=== PATIENT | female | born 1945 | race Caucasian/White ===

== ENCOUNTER → 2020-01-24 14:34 | Outpatient (BNVA) | payer MEDICARE, SELFPAY | PROVIDERS: Family Provider Family Medicine; Visit Provider Family Medicine | DX: E11.9 Type 2 diabetes mellitus without complications (principal); E78.00 Pure hypercholesterolemia, unspecified; I10 Essential (primary) hypertension; Z87.891 Personal history of nicotine dependence; F41.9 Anxiety disorder, unspecified; Z00.00 Encounter for general adult medical examination without abnormal findings | CPT/HCPCS: 80053; 80061; 85025 ==

== ENCOUNTER → 2020-04-24 15:36 | Outpatient (BNVA) | payer MEDICARE, SELFPAY | PROVIDERS: Family Provider Family Medicine; Visit Provider Family Medicine | DX: R73.9 Hyperglycemia, unspecified (principal) | CPT/HCPCS: 36416; 82962 ==

== ENCOUNTER 2020-07-27 12:58 | Outpatient (CLI) | payer MEDICARE, SELFPAY ==
--- NOTE | 2020-07-27 13:07 | MM_ITS ---
WS: [id number] Bilateral screening digital mammogram, 07/27/2020 Clinical Data: SCREENING Comparison: 03/29/2019, 03/24/2018. Findings: The breast parenchymal pattern shows heterogeneous density No spiculated masses or clustered calcific ations are seen. There are no secondary signs of carcinoma. There are benign calcifications throughou t both breasts. MM/[id number] Impression: 1. Negative bilateral mammogram unchanged. 2. Recommend annual screening mammograms. BIRADS: 1-Negative FOLLOW UP: 1 Year Follow-up The CAD bag checker was used.
== END 2020-07-27 12:59 | disposition home or self-care (01) ==
PROVIDERS: PCP Family Medicine; Visit Provider Family Medicine
DX: Z12.31 Encounter for screening mammogram for malignant neoplasm of breast (principal)
CPT/HCPCS: 77067

== ENCOUNTER → 2020-11-27 15:53 | Outpatient (BNVA) | payer MEDICARE, MEDICAID, SELFPAY | PROVIDERS: PCP Family Medicine; Visit Provider Family Medicine | DX: Z00.00 Encounter for general adult medical examination without abnormal findings (principal); E78.00 Pure hypercholesterolemia, unspecified; I10 Essential (primary) hypertension; Z87.891 Personal history of nicotine dependence; E11.65 Type 2 diabetes mellitus with hyperglycemia; F41.9 Anxiety disorder, unspecified | CPT/HCPCS: 80053; 80061; 83036; 85025 ==

== ENCOUNTER → 2021-02-28 14:37 | Outpatient (BNVA) | payer MEDICARE, MEDICAID, SELFPAY | PROVIDERS: PCP Family Medicine; Visit Provider Specialist | DX: G30.9 Alzheimer's disease, unspecified (principal); F02.80 Dementia in other diseases classified elsewhere, unspecified severity, without behavioral disturbance, psychotic disturbance, mood disturbance, and anxiety; Z87.891 Personal history of nicotine dependence | CPT/HCPCS: 96116; 99205 ==

== ENCOUNTER 2021-04-25 17:33 | Observation (INO) | payer MEDICARE, SELFPAY ==
[2021-04-25] VITALS (17 sets, daily range): BP systolic 160–184; BP diastolic 75–115; PULSE 96–120; RESP 18–31; TEMP 36.3–36.6; O2SAT 88–96; BMI 25.6
--- NOTE | 2021-04-25 17:37 | ECG_ITS ---
[facility] Test Date: 2021-04-25 Pat Name: Maria M Klein Department: Room: Gender: Female [employer]: : 1945 Requested By: Sanju Kennedy Order Number: [id number] Collin MD: Jeff Toro M.D. Measurements Intervals [place] Rate: 118 P: IA: QRS: 29 QRSD: 82 T: 74 QT: 332 QTc: 465 Interpretive Statements ATRIAL FLUTTER/TACHYCARDIA WITH RAPID VENTRICULAR RESPONSE ABNORMAL RHYTHM ECG Compared to ECG 07/05/2014 12:11:42 Sinus rhythm no longer present Sinus arrhythmia no longer present Myocardial infarct finding no longer present Electronically Signed On 04-25-2021 23:02:45 CDT by Jeff Toro M.D. [id number]
--- NOTE | 2021-04-25 17:38 | XRR_ITS ---
PROCEDURE INFORMATION: Exam: XR Chest Exam date and time: 04/25/2021 5:38 PM Age: 75 years old Clinical indication: Cough TECHNIQUE: Imaging protocol: XR of the chest. Views: 1 view. COMPARISON: CR Chest 1 [place] [id number] 07/05/2014 12:29 PM FINDINGS: Lungs: Emphysema. Negative for space consolidation. Negative for vascular dilation. Pleural spaces: Unremarkable. No pleural effusion. No pneumothorax. Heart/Mediastinum: Unremarkable. No cardiomegaly. Bones/joints: Unremarkable. XR/XR chest 1V portable [id number] IMPRESSION: Negative chest. No acute airspace disease identified. Radiation Dose CTDIVOL = (mGy): DLP = (mGy-cm)
--- NOTE | 2021-04-25 17:39 | ED_ITS ---
Documented by User: Sanju Kennedy MD 04/25/21 17:42 HPI - General Adult General: Chief complaint: Seizure Stated complaint: SEIZURE LIKE ACTIVITY Time Seen by Provider: 04/25/21 17:37 History of Present Illness: HPI narrative: This patient is a 75-year-old female with a history of diabetes and anxiety issues presents to the emergency department with altered mental status concerning for seizure-like activity. Apparently a vehicle pulled up in front of the ambulance bay with the patient in the car. Patient has snoring respirations with appears to be awake and looking around will wipe her nose with both hands. Patient concerning for possible post ictal symptoms. Patient appears to be confused and not really answering questions. Bedside glucose is 134. Will do medical evaluation treat as needed. Onset (ago): minute(s) Associated symptoms: Reports confusion; Deny chest pain, dyspnea, headache(s), nausea, rash, palpitations or vomiting Review of Systems General: Reports: 10 or more systems reviewed and unremarkable except in HPI and below Const: Denies: fever(s), chills, body aches or fatigue Eyes: Denies: change in vision or blurry vision ENMT: Denies: throat pain, hoarseness or mouth pain Card: Denies: chest pain, palpitations, irregular heart rhythm, edema, swelling of feet/ankles or lightheadedness Resp: Denies: dyspnea, productive cough, non-productive cough, wheezing or pain on inspiration GI: Denies: abdominal pain, nausea or vomiting : Denies: flank pain, difficulty voiding, dysuria, urinary frequency, urinary urgency or urinary hesitancy Musc: Denies: neck pain, back pain, extremity pain, extremity swelling, joint pain, joint swelling, joint redness, joint warmth or limited range of motion Skin/Breast: Denies: rash, pruritus, erythema or skin tenderness Neuro: Reports: confusion and seizure-like activity; Denies: headache(s), numbness in extremities or weakness in extremities Psych: Denies: anxiety or depression [facility] ED PFSH: Medical History Anxiety Depression Diabetes History of stroke History of tobacco abuse Hypercholesteremia Hypertension Social History Smoking and tobacco status: former smoker Alcohol intake: never Physical Exam Const: COMMON NORMALS: no acute distress, average body habitus, no limitations, healthy appearing and well nourished HENMT: COMMON NORMALS: normocephalic, atraumatic, hearing grossly normal bilaterally, external ears normal, EAC's normal, TM's normal bilaterally, Normal external nose present, Normal nasal mucous membranes and turbinates present, moist oral mucous membranes, oropharynx normal, dentition normal and gingiva normal HEAD & SCALP: normocephalic and atraumatic NOSE: Normal external nose present and Normal nasal mucous membranes and turbinates present EXTERNAL EAR: Yes external ears normal EXTERNAL AUDITORY CANAL: EAC's normal TYMPANIC MEMBRANE: TM's normal bilaterally Neck/C-Spine: COMMON NORMALS: full ROM, no lymphadenopathy, supple, no JVD, Thyroid normal and No carotid bruits THYROID: Thyroid normal Chest: COMMONS NORMALS: normal inspection of the chest, normal palpation of entire chest wall, normal inspection of the breasts and normal palpation of the breasts Breast/axilla inspection: Yes normal inspection of the breasts BREAST/AXILLA PALPATION: Yes normal palpation of the breasts Resp: COMMON NORMALS: normal respiratory effort, No retractions, No use of accessory muscles, clear to auscultation bilaterally and percussion normal AUSCULTATION: clear to auscultation bilaterally PERCUSSION: percussion normal Cardio: COMMON NORMALS: no JVD, regular rate, regular rhythm, S1 normal heart sound present, S2 normal heart sound present, No gallops present (Cardio), No clicks present (Cardio), No murmurs present (Cardio), No rub (Cardio) and Pe ripheral pulses 2+ throughout RATE: regular rate RHYTHM: regular rhythm HEART SOUNDS: S1 normal heart sound present and S2 normal heart sound present PERIPHERAL PULSES: Peripheral pulses 2+ throughout GI: COMMON NORMALS: Normal to inspection, nondistended, normoactive bowel sounds present, Soft to palpation, non-tender, No hepatosplenomegaly present, no masses and no bruits PALPATION: Yes Soft to palpation and Yes No hepatosplenomegaly present Back/Pelvis: COMMON NORMALS: thoracic and lumbar spine normal to inspection, no thoracic nor lumbar tenderness, thoraco-lumbar ROM normal and straight leg raise negative bilaterally Extremity: COMMON NORMALS: normal to inspection, full ROM, capillary refill normal, no joint enlargement, no clubbing, cyanosis or edema, no calf tenderness and no pedal edema Neuro: SENSORIUM/ORIENTATION: Yes Orientation impaired Course ED course: Care transferred to Dr. Pack for shift change Vital Signs: Vital signs: Vital Signs Temperature 97.4 F L 04/25/21 17:50 Pulse Rate 105 H 04/25/21 20:59 Respiratory Rate 18 04/25/21 20:59 Blood Pressure 160/86 04/25/21 21:00 Pulse Oximetry 95 04/25/21 21:[address] [facility] - General Adult Lab Data: Labs: Lab Results 04/25/21 04/25/21 04/25/21 17:28 17:40 17:40 WBC 17.5 10^3/uL H 10 ^3/uL (4.0-10.0) RBC 5.55 10^6/uL H 10 ^6/uL (4.1-5.3) Hgb 16.2 g/dL H g/dL (11.5-15.3) Hct 53.2 % H % (37.0-47.0) MCV 95.9 fl fl (81-99) MCH 29.2 pg pg (28.0-34.0) MCHC 30.5 g/dL g/dL (30.0-36.0) RDW 12.7 % % (12.1-15.1) Plt Count 493 10^3/cmm H 10 ^3/cmm (130-400) MPV 9.5 fL fL (7.4-10.4) Neut % (Auto) 61.5 % % Lymph % (Auto) 27.5 % % [place] % (Auto) 6.7 % % Eos % (Auto) 2.9 % % Baso % (Auto) 0.7 % % Neut # (Auto) 10.76 10^3/uL H 1 0^3/uL (1.8-7.7) Lymph # (Auto) 4.8 10^3/uL 10^3/ uL (0.8-4.8) [place] # (Auto) 1.2 10^3/uL H 10^ 3/uL (0.2-0.9) Eos # (Auto) 0.5 10^3/uL 10^3/ uL (0.0-0.8) Baso # (Auto) 0.1 10^3/uL 10^3/ uL (0.0-0.1) Nucleated RBC % (a uto) 0 % % Nucleated RBCs # 0.0 /100WBC /100W BC PT 13.50 SECONDS SEC ONDS (12.1-14.9) INR 1.00 (0.8-1.2) APTT 26.3 SECONDS SECO NDS (23.9-36.7) Specimen Type Arterial Sample Site Radial, right ABG pH 7.12 L* (7.35-7.45) ABG pCO2 53.6 mmHg H mmHg (35-45) ABG pO2 116.0 mmHg H mmHg (80.0-100.0) ABG HCO3 17.3 mmol/L L mmo l/L (22-26) ABG O2 Saturation 96.5 ABG Base Excess -12.6 mmol/L L mm ol/L (-2.0-2.0) [place] Test Pos A-a O2 Gradient 2.3 mmHg L mmHg (5-10) Hematocrit 52.1 % H % (37-47) Hgb O2 Saturation 95.2 % % (95-100) Carboxyhemoglobin 0.7 %THgb %THgb (0.4-20.1) Methemoglobin 0.8 % % (0.4-1.5) Total Hemoglobin 17.0 g/dL H g/dL (12-16) Sodium 149.0 mmol/L H mm ol/L (131-143) Potassium 3.3 mmol/L L mmol /L (3.5-5.0) Glucose 164.0 mg/dL H mg/ dL (70-115) Ionized Calcium 1.3 mmol/L mmol/L (1.1-1.4) O2 Delivery Device Nc O2 Liters/Min 2.0 % % FiO2 28.0 % % Junction Maker ID Gd Chloride Carbon Dioxide Anion Gap BUN Creatinine GFR Calculation Calculated Osmolal ity Calcium Total Bilirubin AST ALT Alkaline Phosphata se Troponin T Gen 5 n g/L NT-Pro-B Natriuret Pep Total Protein Albumin Globulin Urine Color Urine Appearance Urine pH Ur Specific Gravit y Urine Protein Urine Glucose (UA) Urine Ketones Urine Blood Urine Nitrate Urine Bilirubin Urine Urobilinogen Ur Leukocyte Elda ase Urine RBC Urine WBC Ur Squamous Epith Cells Calcium Oxalate Cr ystal Amorphous Sediment Urine Bacteria Hyaline Casts Urine Opiates Scre en Acetaminophen Ur Barbiturates Sc reen Ur Phencyclidine S crn Ur Amphetamines Sc reen U Benzodiazepines Scrn Urine Cocaine Scre en U Marijuana (THC) Screen Ethyl Alcohol Group A Strep Rapi d 04/25/21 04/25/21 04/25/21 17:40 17:40 18:39 WBC RBC Hgb Hct MCV MCH MCHC RDW Plt Count MPV Neut % (Auto) Lymph % (Auto) [place] % (Auto) Eos % (Auto) Baso % (Auto) Neut # (Auto) Lymph # (Auto) [place] # (Auto) Eos # (Auto) Baso # (Auto) Nucleated RBC % (a uto) Nucleated RBCs # PT INR APTT Specimen Type Sample Site ABG pH ABG pCO2 ABG pO2 ABG HCO3 ABG O2 Saturation ABG Base Excess [place] Test A-a O2 Gradient Hematocrit Hgb O2 Saturation Carboxyhemoglobin Methemoglobin Total Hemoglobin Sodium 140 mmol/L mmol/L (136-145) Potassium 3.4 mmol/L L mmol /L (3.5-5.1) Glucose 159 mg/dL H mg/dL (65-115) Ionized Calcium O2 Delivery Device O2 Liters/Min FiO2 Junction Maker ID Chloride 94 mmol/L L mmol/ L (98-107) Carbon Dioxide 16 mmol/L L mmol/ L (22-29) Anion Gap 33.4 H (5-19) BUN 10 mg/dL mg/dL (8-23) Creatinine 0.8 mg/dL mg/dL (0.5-0.9) GFR Calculation Not Reportable Calculated Osmolal ity 292 mOsm/kg mOsm/ kg (285-295) Calcium 10.0 mg/dL mg/dL (8.5-10.5) Total Bilirubin 0.3 mg/dL mg/dL (0.15-1.2) AST 21 U/L U/L (0-32) ALT 32 U/L U/L (0-33) Alkaline Phosphata se 158 IU/L H IU/L (35-105) Troponin T Gen 5 n g/L 8 ng/L ng/L (0-10) NT-Pro-B Natriuret Pep 83 pg/mL pg/mL (0-125) Total Protein 8.9 g/dL H g/dL (6.6-8.7) Albumin 4.5 g/dL g/dL (3.5-5.2) Globulin 4.4 g/dL g/dL (1.3-4.6) Urine Color Yellow (Yellow) Urine Appearance Clear (CLEAR) Urine pH 5 (5-7) Ur Specific Gravit y 1.020 (1.005-1.030) Urine Protein 1+ H (Negative) Urine Glucose (UA) Norm (Normal) Urine Ketones 1+ H (Negative) Urine Blood 2+ H (Negative) Urine Nitrate Negative (Negative) Urine Bilirubin Neg (Negative) Urine Urobilinogen Norm mg/dL mg/dL (Negative) Ur Leukocyte Elda ase Negative (Negative) Urine RBC 0-4 /hpf H /hpf (0-2) Urine WBC 0-4 /hpf H /hpf (0-5) Ur Squamous Epith Cells 0-4 /hpf H /hpf (0-5) Calcium Oxalate Cr ystal T /hpf /hpf Amorphous Sediment Not Reportable Urine Bacteria Trace /hpf /hpf (NONE) Hyaline Casts 0-4 /lpf H /lpf Urine Opiates Scre en Acetaminophen < 5.0 ug/mL L ug/ mL (10-30) Ur Barbiturates Sc reen Ur Phencyclidine S crn Ur Amphetamines Sc reen U Benzodiazepines Scrn Urine Cocaine Scre en U Marijuana (THC) Screen Ethyl Alcohol < 10 mg/dL mg/dL (0-10) Group A Strep Rapi d 04/25/21 04/25/21 18:39 18:39 WBC RBC Hgb Hct MCV MCH MCHC RDW Plt Count MPV Neut % (Auto) Lymph % (Auto) [place] % (Auto) Eos % (Auto) Baso % (Auto) Neut # (Auto) Lymph # (Auto) [place] # (Auto) Eos # (Auto) Baso # (Auto) Nucleated RBC % (a uto) Nucleated RBCs # PT INR APTT Specimen Type Sample Site ABG pH ABG pCO2 ABG pO2 ABG HCO3 ABG O2 Saturation ABG Base Excess [place] Test A-a O2 Gradient Hematocrit Hgb O2 Saturation Carboxyhemoglobin Methemoglobin Total Hemoglobin Sodium Potassium Glucose Ionized Calcium O2 Delivery Device O2 Liters/Min FiO2 Junction Maker ID Chloride Carbon Dioxide Anion Gap BUN Creatinine GFR Calculation Calculated Osmolal ity Calcium Total Bilirubin AST ALT Alkaline Phosphata se Troponin T Gen 5 n g/L NT-Pro-B Natriuret Pep Total Protein Albumin Globulin Urine Color Urine Appearance Urine pH Ur Specific Gravit y Urine Protein Urine Glucose (UA) Urine Ketones Urine Blood Urine Nitrate Urine Bilirubin Urine Urobilinogen Ur Leukocyte Elda ase Urine RBC Urine WBC Ur Squamous Epith Cells Calcium Oxalate Cr ystal Amorphous Sediment Urine Bacteria Hyaline Casts Urine Opiates Scre en Negative ng/mL ng /mL (Negative) Acetaminophen Ur Barbiturates Sc reen Negative ng/mL ng /mL (Negative) Ur Phencyclidine S crn Negative ng/mL ng /mL (Negative) Ur Amphetamines Sc reen Negative ng/mL ng /mL (Negative) U Benzodiazepines Scrn Negative ng/mL ng /mL (Negative) Urine Cocaine Scre en Negative ng/mL ng /mL (Negative) U Marijuana (THC) Screen Negative ng/mL ng /mL (Negative) Ethyl Alcohol Group A Strep Rapi d Negative (Negative) EKG Data^: EKG 1: Computer generated interpretation: Chest X-Ray 04/25/21 17:38 IMPRESSION: Negative chest. No acute airspace disease identified. Radiation Dose CTDIVOL = (mGy): DLP = (mGy-cm) Head CT 04/25/21 17:38 IMPRESSION: Negative for acute intracranial abnormality. Radiation Dose CTDIVOL = (mGy): DLP = 906.11 (mGy-cm) Discharge Plan Discharge Patient Disposition: Admitted As Inpatient Admit Provider: Portia Quinones Clinical Impression: Generalized seizure Condition: Stable Coding Level of Care Code ED Video Photographer for Chg Fwd Exam Comprehensive Documented by User: Daniel Pack MD 04/25/21 21:50 HPI - General Adult General: Chief complaint: Seizure Stated complaint: SEIZURE LIKE ACTIVITY Time Seen by Provider: 04/25/21 17:37 PFSH ED PFSH: Medical History Anxiety Depression Diabetes History of stroke History of tobacco abuse Hypercholesteremia Hypertension Social History Smoking and tobacco status: former smoker Alcohol intake: never Course Vital Signs: Vital signs: Vital Signs Temperature 97.4 F L 04/25/21 17:50 Pulse Rate 105 H 04/25/21 20:59 Respiratory Rate 18 04/25/21 20:59 Blood Pressure 160/86 04/25/21 21:00 Pulse Oximetry 95 04/25/21 21:00 MDM - General Adult MDM Narrative: Medical decision making narrative: Patient presents here with a likely seizure. She has no focal deficits at this time is no signs of a CVA. She has had some slight hypoxia could be due to aspiration. Patient does have an elevated white count and anion gap likely due to her seizure. She has no signs of septic shock has had normal blood pressures. I spoke to the hospitalist will admit for observation. Lab Data: Labs: Lab Results 04/25/21 04/25/21 04/25/21 17:28 17:40 17:40 WBC 17.5 10^3/uL H 10 ^3/uL (4.0-10.0) RBC 5.55 10^6/uL H 10 ^6/uL (4.1-5.3) Hgb 16.2 g/dL H g/dL (11.5-15.3) Hct 53.2 % H % (37.0-47.0) MCV 95.9 fl fl (81-99) MCH 29.2 pg pg (28.0-34.0) MCHC 30.5 g/dL g/dL (30.0-36.0) RDW 12.7 % % (12.1-15.1) Plt Count 493 10^3/cmm H 10 ^3/cmm (130-400) MPV 9.5 fL fL (7.4-10.4) Neut % (Auto) 61.5 % % Lymph % (Auto) 27.5 % % [place] % (Auto) 6.7 % % Eos % (Auto) 2.9 % % Baso % (Auto) 0.7 % % Neut # (Auto) 10.76 10^3/uL H 1 0^3/uL (1.8-7.7) Lymph # (Auto) 4.8 10^3/uL 10^3/ uL (0.8-4.8) [place] # (Auto) 1.2 10^3/uL H 10^ 3/uL (0.2-0.9) Eos # (Auto) 0.5 10^3/uL 10^3/ uL (0.0-0.8) Baso # (Auto) 0.1 10^3/uL 10^3/ uL (0.0-0.1) Nucleated RBC % (a uto) 0 % % Nucleated RBCs # 0.0 /100WBC /100W BC PT 13.50 SECONDS SEC ONDS (12.1-14.9) INR 1.00 (0.8-1.2) APTT 26.3 SECONDS SECO NDS (23.9-36.7) Specimen Type Arterial Sample Site Radial, right ABG pH 7.12 L* (7.35-7.45) ABG pCO2 53.6 mmHg H mmHg (35-45) ABG pO2 116.0 mmHg H mmHg (80.0-100.0) ABG HCO3 17.3 mmol/L L mmo l/L (22-26) ABG O2 Saturation 96.5 ABG Base Excess -12.6 mmol/L L mm ol/L (-2.0-2.0) [place] Test Pos A-a O2 Gradient 2.3 mmHg L mmHg (5-10) Hematocrit 52.1 % H % (37-47) Hgb O2 Saturation 95.2 % % (95-100) Carboxyhemoglobin 0.7 %THgb %THgb (0.4-20.1) Methemoglobin 0.8 % % (0.4-1.5) Total Hemoglobin 17.0 g/dL H g/dL (12-16) Sodium 149.0 mmol/L H mm ol/L (131-143) Potassium 3.3 mmol/L L mmol /L (3.5-5.0) Glucose 164.0 mg/dL H mg/ dL (70-115) Ionized Calcium 1.3 mmol/L mmol/L (1.1-1.4) O2 Delivery Device Nc O2 Liters/Min 2.0 % % FiO2 28.0 % % Junction Maker ID Gd Chloride Carbon Dioxide Anion Gap BUN Creatinine GFR Calculation Calculated Osmolal ity Calcium Total Bilirubin AST ALT Alkaline Phosphata se Troponin T Gen 5 n g/L NT-Pro-B Natriuret Pep Total Protein Albumin Globulin Urine Color Urine Appearance Urine pH Ur Specific Gravit y Urine Protein Urine Glucose (UA) Urine Ketones Urine Blood Urine Nitrate Urine Bilirubin Urine Urobilinogen Ur Leukocyte Elda ase Urine RBC Urine WBC Ur Squamous Epith Cells Calcium Oxalate Cr ystal Amorphous Sediment Urine Bacteria Hyaline Casts Urine Opiates Scre en Acetaminophen Ur Barbiturates Sc reen Ur Phencyclidine S crn Ur Amphetamines Sc reen U Benzodiazepines Scrn Urine Cocaine Scre en U Marijuana (THC) Screen Ethyl Alcohol Group A Strep Rapi d 04/25/21 04/25/21 04/25/21 17:40 17:40 18:39 WBC RBC Hgb Hct MCV MCH MCHC RDW Plt Count MPV Neut % (Auto) Lymph % (Auto) [place] % (Auto) Eos % (Auto) Baso % (Auto) Neut # (Auto) Lymph # (Auto) [place] # (Auto) Eos # (Auto) Baso # (Auto) Nucleated RBC % (a uto) Nucleated RBCs # PT INR APTT Specimen Type Sample Site ABG pH ABG pCO2 ABG pO2 ABG HCO3 ABG O2 Saturation ABG Base Excess [place] Test A-a O2 Gradient Hematocrit Hgb O2 Saturation Carboxyhemoglobin Methemoglobin Total Hemoglobin Sodium 140 mmol/L mmol/L (136-145) Potassium 3.4 mmol/L L mmol /L (3.5-5.1) Glucose 159 mg/dL H mg/dL (65-115) Ionized Calcium O2 Delivery Device O2 Liters/Min FiO2 Junction Maker ID Chloride 94 mmol/L L mmol/ L (98-107) Carbon Dioxide 16 mmol/L L mmol/ L (22-29) Anion Gap 33.4 H (5-19) BUN 10 mg/dL mg/dL (8-23) Creatinine 0.8 mg/dL mg/dL (0.5-0.9) GFR Calculation Not Reportable Calculated Osmolal ity 292 mOsm/kg mOsm/ kg (285-295) Calcium 10.0 mg/dL mg/dL (8.5-10.5) Total Bilirubin 0.3 mg/dL mg/dL (0.15-1.2) AST 21 U/L U/L (0-32) ALT 32 U/L U/L (0-33) Alkaline Phosphata se 158 IU/L H IU/L (35-105) Troponin T Gen 5 n g/L 8 ng/L ng/L (0-10) NT-Pro-B Natriuret Pep 83 pg/mL pg/mL (0-125) Total Protein 8.9 g/dL H g/dL (6.6-8.7) Albumin 4.5 g/dL g/dL (3.5-5.2) Globulin 4.4 g/dL g/dL (1.3-4.6) Urine Color Yellow (Yellow) Urine Appearance Clear (CLEAR) Urine pH 5 (5-7) Ur Specific Gravit y 1.020 (1.005-1.030) Urine Protein 1+ H (Negative) Urine Glucose (UA) Norm (Normal) Urine Ketones 1+ H (Negative) Urine Blood 2+ H (Negative) Urine Nitrate Negative (Negative) Urine Bilirubin Neg (Negative) Urine Urobilinogen Norm mg/dL mg/dL (Negative) Ur Leukocyte Elda ase Negative (Negative) Urine RBC 0-4 /hpf H /hpf (0-2) Urine WBC 0-4 /hpf H /hpf (0-5) Ur Squamous Epith Cells 0-4 /hpf H /hpf (0-5) Calcium Oxalate Cr ystal T /hpf /hpf Amorphous Sediment Not Reportable Urine Bacteria Trace /hpf /hpf (NONE) Hyaline Casts 0-4 /lpf H /lpf Urine Opiates Scre en Acetaminophen < 5.0 ug/mL L ug/ mL (10-30) Ur Barbiturates Sc reen Ur Phencyclidine S crn Ur Amphetamines Sc reen U Benzodiazepines Scrn Urine Cocaine Scre en U Marijuana (THC) Screen Ethyl Alcohol < 10 mg/dL mg/dL (0-10) Group A Strep Rapi d 04/25/21 04/25/21 18:39 18:39 WBC RBC Hgb Hct MCV MCH MCHC RDW Plt Count MPV Neut % (Auto) Lymph % (Auto) [place] % (Auto) Eos % (Auto) Baso % (Auto) Neut # (Auto) Lymph # (Auto) [place] # (Auto) Eos # (Auto) Baso # (Auto) Nucleated RBC % (a uto) Nucleated RBCs # PT INR APTT Specimen Type Sample Site ABG pH ABG pCO2 ABG pO2 ABG HCO3 ABG O2 Saturation ABG Base Excess [place] Test A-a O2 Gradient Hematocrit Hgb O2 Saturation Carboxyhemoglobin Methemoglobin Total Hemoglobin Sodium Potassium Glucose Ionized Calcium O2 Delivery Device O2 Liters/Min FiO2 Junction Maker ID Chloride Carbon Dioxide Anion Gap BUN Creatinine GFR Calculation Calculated Osmolal ity Calcium Total Bilirubin AST ALT Alkaline Phosphata se Troponin T Gen 5 n g/L NT-Pro-B Natriuret Pep Total Protein Albumin Globulin Urine Color Urine Appearance Urine pH Ur Specific Gravit y Urine Protein Urine Glucose (UA) Urine Ketones Urine Blood Urine Nitrate Urine Bilirubin Urine Urobilinogen Ur Leukocyte Elda ase Urine RBC Urine WBC Ur Squamous Epith Cells Calcium Oxalate Cr ystal Amorphous Sediment Urine Bacteria Hyaline Casts Urine Opiates Scre en Negative ng/mL ng /mL (Negative) Acetaminophen Ur Barbiturates Sc reen Negative ng/mL ng /mL (Negative) Ur Phencyclidine S crn Negative ng/mL ng /mL (Negative) Ur Amphetamines Sc reen Negative ng/mL ng /mL (Negative) U Benzodiazepines Scrn Negative ng/mL ng /mL (Negative) Urine Cocaine Scre en Negative ng/mL ng /mL (Negative) U Marijuana (THC) Screen Negative ng/mL ng /mL (Negative) Ethyl Alcohol Group A Strep Rapi d Negative (Negative) Imaging Data^: CXR: Radiologist's impression: [address] [address] XRay Report Signed Patient: Maria M Klein Unit #: [id number] : 1945 Age/Sex: 75 / F ADM Date: 04/25/21 Loc: ER Room/Bed: Attending Dr: Ordering Provider/Ordering MD: Sanju Kennedy MD Date of Service: 04/25/21 Procedure(s): XR chest 1V portable [id number] Accession Number(s): [id number] Report Number: [id number] PROCEDURE INFORMATION: Exam: XR Chest Exam date and time: 04/25/2021 5:38 PM Age: 75 years old Clinical indication: Cough TECHNIQUE: Imaging protocol: XR of the chest. Views: 1 view. COMPARISON: CR Chest 1 [place] [id number] 07/05/2014 12:29 PM FINDINGS: Lungs: Emphysema. Negative for space consolidation. Negative for vascular dilation. Pleural spaces: Unremarkable. No pleural effusion. No pneumothorax. Heart/Mediastinum: Unremarkable. No cardiomegaly. Bones/joints: Unremarkable. XR/XR chest 1V portable [id number] IMPRESSION: Negative chest. No acute airspace disease identified. Radiation Dose CTDIVOL = (mGy): DLP = (mGy-cm) Dictated By: Meir Baxter Signed By: Meir Baxter Signed Date/Time: 04/25/21 182 DD/ 37 CT Head: Radiologist's impression: [facility] [address] [address] [address] Scan Report Signed Patient: Maria M Klein Unit #: [id number] : 1945 Age/Sex: 75 / F ADM Date: 04/25/21 Loc: ER Room/Bed: Attending Dr: Ordering Provider/Ordering MD: Sanju Kennedy MD Date of Service: 04/25/21 Procedure(s): CT head wo con* [id number] Accession Number(s): [id number] Report Number: [id number] PROCEDURE INFORMATION: Exam: CT Head Without Contrast Exam date and time: 04/25/2021 5:38 PM Age: 75 years old Clinical indication: Condition or disease; Convulsions or seizures; Patient HX: HX of stroke; Additional info: Confusion TECHNIQUE: Imaging protocol: Computed tomography of the head without contrast. Radiation optimization: All CT scans at this facility use at least one of these dose optimization techniques: automated exposure control; mA and/or kV adjustment per patient size (includes targeted exams where dose is matched to clinical indication); or iterative reconstruction. COMPARISON: MR head wo con* [id number] 06/10/2014 2:02 PM RADIATION DOSE METRICS: Total DLP (mGy-cm): 906.11 FINDINGS: Brain: There is moderate cerebral atrophy. There is marked diffuse heterogeneity of the white matter attenuation, consistent with severe chronic white matter ischemic changes. Negative for intracranial hemorrhage. No space-occupying intracranial mass. No midline shift of brain. No cerebral sulcal effacement. Probable lacunar infarcts bilateral basal ganglia more prominent on left than right. Cerebral ventricles: No ventriculomegaly. Paranasal sinuses: Visualized sinuses are unremarkable. No fluid levels. Mastoid air cells: Visualized mastoid air cells are well aerated. Orbital cavity: Symmetric orbits with lens replacements. Bones/joints: Unremarkable. No acute fracture. Soft tissues: Unremarkable. CT/CT head wo con* [id number] IMPRESSION: Negative for acute intracranial abnormality. Radiation Dose CTDIVOL = (mGy): DLP = 906.11 (mGy-cm) Dictated By: Meir Baxter Signed By: Meir Baxter Signed Date/Time: 04/25/21 1806 DD/ 1738 EKG Data^: EKG 1: Attestation: I personally reviewed and interpreted this EKG as follows: EKG interpretation date: 04/25/21 EKG interpretation time: 18:10 Interpretation: afib hr [address] or t wave abnormalities qrs 82 qtc 402 Computer generated interpretation: Chest X-Ray 04/25/21 17:38 IMPRESSION: Negative chest. No acute airspace disease identified. Radiation Dose CTDIVOL = (mGy): DLP = (mGy-cm) Head CT 04/25/21 17:38 IMPRESSION: Negative for acute intracranial abnormality. Radiation Dose CTDIVOL = (mGy): DLP = 906.11 (mGy-cm) Discharge Plan Discharge Patient Disposition: Admitted As Inpatient Admit Provider: Portia Quinones Clinical Impression: Generalized seizure Condition: Stable Coding Level of Care Code ED Video Photographer for g Fwd Exam Comprehensive NIH stroke score NIHSS Level Of Consciousness - 1a: 0 Level Of Consciousness Questions - 1b: Both Correct Level Of Consciousness Commands - 1c: Both Correct Best Gaze - 2: Normal Visual Leija - 3: No Visual Loss Facial Palsy - 4: Normal Motor Arm Right - 5: No Drift Motor Arm Left - 5: No Drift Motor Leg Right - 6: No Drift Motor Leg Left - 6: No Drift Limb Ataxia - 7: Absent Sensory - 8: Normal Best Language - 9: No Aphasia Dysarthia - 10: Normal Extinction And Inattention - 11: 0 Score Total Score: 0
[2021-04-25 17:44] LABS: ABG PCO2 53.6 mmHg (35-45); ABG PH Result 7.12 (7.35-7.45); Alveolar-Arterial Oxygen Gradi 2.3 mmHg (5-10); Arterial Blood Gas Hematocrit 52.1 % (37-47); Base Excess ABG -12.6 mmol/L (-2.0-2.0); Blood Gas Allen Test Pos; Blood Gas Operator Identificat GD; Blood Gas Sample Site Radial, right; Blood Gas Sample Type Arterial; Carboxyhemoglobin 0.7 %THgb (0.4-20.1); HCO3 ABG 17.3 mmol/L (22-26); HGB O2 Sat 95.2 % (95-100); Ionized Calcium Level - ABG 1.3 mmol/L (1.1-1.4); Methemoglobin 0.8 % (0.4-1.5); Oxygen Device NC; Oxygen Saturation ABG 96.5; Potassium Level - ABG 3.3 mmol/L (3.5-5.0)
[2021-04-25 18:13] LABS: Basophils # 0.1 10^3/uL (0.0-0.1); Basophils % 0.7 %; Eosinophils # 0.5 10^3/uL (0.0-0.8); Eosinophils % 2.9 %; Hematocrit 53.2 % (37.0-47.0); Hemoglobin 16.2 g/dL (11.5-15.3); Lymphocytes # 4.8 10^3/uL (0.8-4.8); Lymphocytes % 27.5 %; Mean Corpuscular HGB Conc 30.5 g/dL (30.0-36.0); Mean Corpuscular Hemoglobin 29.2 pg (28.0-34.0); Mean Corpuscular Volume 95.9 fl (81-99); Mean Platelet Volume 9.5 fL (7.4-10.4); Monocytes # 1.2 10^3/uL (0.2-0.9); Monocytes % 6.7 %; Neutrophils # 10.76 10^3/uL (1.8-7.7); Neutrophils % 61.5 %; Nucleated Red Blood Cells % 0 %; Platelet Count 493 10^3/cmm (130-400); Red Blood Count 5.55 10^6/uL (4.1-5.3); Red Cell Distribution Width 12.7 % (12.1-15.1); White Blood Count 17.5 10^3/uL (4.0-10.0)
[2021-04-25 18:37] LABS: Partial Thromboplastin Time 26.3 SECONDS (23.9-36.7)
[2021-04-25 18:52] LABS: Troponin T (5th) Once 8 ng/L (0-10)
[2021-04-25 18:59] LABS: Alanine Aminotransferase 32 U/L (0-33); Albumin Level 4.5 g/dL (3.5-5.2); Alkaline Phosphatase 158 IU/L (35-105); Anion Gap 33.4 (5-19); Aspartate Amino Transferase 21 U/L (0-32); Blood Urea Nitrogen 10 mg/dL (8-23); Carbon Dioxide 16 mmol/L (22-29); Chloride 94 mmol/L (98-107); Creatinine Clr Calc Pharmacy 54.0169; Globulin 4.4 g/dL (1.3-4.6); Glucose 159 mg/dL (65-115); NT Pro B Type Natriuretic Pept 83 pg/mL (0-125); Osmolality Calculated 292 mOsm/kg (285-295); Potassium 3.4 mmol/L (3.5-5.1); Sodium 140 mmol/L (136-145); Total Bilirubin 0.3 mg/dL (0.15-1.2); Total Protein 8.9 g/dL (6.6-8.7)
[2021-04-25 19:04] LABS: Acetaminophen < 5.0 ug/mL (10-30); Alcohol Level < 10 mg/dL (0-10)
[2021-04-25 19:08] LABS: Add Urine Microscopic? YES; Bilirubin Urine Neg (Negative); Blood Urine 2+ (Negative); Glucose Urine UA Norm (Normal); Ketones Urine 1+ (Negative); Leukocyte Esterase Urine Negative (Negative); Nitrate Urine Negative (Negative); Protein Urine 1+ (Negative); RBC Urine 0-4 /hpf (0-2); Squamous Epithelial Cell Urine 0-4 /hpf (0-5); Urine Appearance Clear (CLEAR); Urine Color Yellow (Yellow); Urobilinogen Urine Norm (Negative); WBC Urine 0-4 /hpf (0-5); pH Urine 5 (5-7)
[2021-04-25 19:09] LABS: Add Urine Culture? No; Bacteria Urine TRACE /hpf; Calcium Oxalate Crystals Urine T /hpf; Hyaline Casts Urine 0-4 /lpf
[2021-04-25 19:14] LABS: Amphetamines Screen Urine Negative (Negative); Barbiturates Screen Urine Negative (Negative); Benzodiazepines Screen Urine Negative (Negative); Cocaine Screen Urine Negative (Negative); Opiate Screen Urine Negative (Negative); PCP Screen Urine Negative (Negative); THC Screen Urine Negative (Negative)
[2021-04-25] MEDS: sodium chloride 0.9% 1,000 ML 999 ML IV (19:20)
--- NOTE | 2021-04-25 19:23 | PC.NURSE ---
Report from DANIELLA Russ
[2021-04-25 19:50] LABS: Rapid Strep A Test Negative (Negative)
[2021-04-25 22:04] LABS: Glucose Point of Care 134 mg/dL (70-110)
[2021-04-25 23:52] LABS: Alanine Aminotransferase 25 U/L (0-33); Albumin Level 3.9 g/dL (3.5-5.2); Alkaline Phosphatase 127 IU/L (35-105); Anion Gap 15.7 (5-19); Aspartate Amino Transferase 17 U/L (0-32); Blood Urea Nitrogen 10 mg/dL (8-23); Calcium 8.8 mg/dL (8.5-10.5); Carbon Dioxide 25 mmol/L (22-29); Chloride 102 mmol/L (98-107); Creatinine Clr Calc Pharmacy 54.0169; Globulin 3.8 g/dL (1.3-4.6); Glucose 143 mg/dL (65-115); Osmolality Calculated 290 mOsm/kg (285-295); Potassium 3.7 mmol/L (3.5-5.1); Sodium 139 mmol/L (136-145); Thyroid Stimulating Hormone 0.67 uIU/mL (0.27-4.20); Total Bilirubin 0.3 mg/dL (0.15-1.2); Total Protein 7.7 g/dL (6.6-8.7)
[2021-04-26] VITALS (12 sets, daily range): BP systolic 140–171; BP diastolic 67–83; PULSE 84–108; RESP 14–22; TEMP 36.6–36.8; O2SAT 90–94
[2021-04-26 00:45] LABS: ABG PCO2 48.1 mmHg (35-45); ABG PH Result 7.41 (7.35-7.45); Base Excess ABG 4.4 mmol/L (-2.0-2.0); Blood Gas Allen Test positive; HCO3 ABG 30.1 mmol/L (22-26); Oxygen Device room air; PO2 ABG 55.2 mmHg (80.0-100.0)
[2021-04-26 00:46] LABS: Arterial Blood Gas Hematocrit 44.5 % (37-47); Blood Gas Sample Site left radial
--- NOTE | 2021-04-26 05:10 | P.HP_ITS ---
Providers/Chief Complaint Admitting Physician: Portia Quinones MD Primary Care Provider: Coco Flores MD Chief Complaint: SEIZURE LIKE ACTIVITY History of Present Illness Maria M Klein is a 75 year old female with a past medical history of hypertension, diabetes, dementia, in her usual state of health until this evening when she had reported episode of seizure. Her history obtained from ER, patient was in the car with her daughter which she was noted to have tonic- clonic movement of bilateral arms and legs, frothing at mouth, followed by loss of consciousness and altered mental status. Upon presentation to the ER, at first she was noted to be confused but mental status has back to baseline since then. Patient does not recall events leading up to the admission. States she has not been sick recently. No reported fever, chest pain, palpitations, photophobia or neck stiffness. No complains of headache at this time. Patient has ambulated in the room to the bathroom and back. There are no focal neuro deficits. CT head shows diffuse chronic ischemic white matter changes. Labs in the ER notable for leukocytosis of 17, initial blood gas with pH of 7.12, CMP with metabolic acidosis and anion gap of 33. Acidosis has resolved with hydration alone. Patient noted to have new 02 requirement of 2lpm in ER, now on RA since arrival on med/surg. Review of Systems General: Reports: 10 or more systems reviewed and unremarkable except in HPI and below Const: Denies: fever(s), chills or body aches Eyes: Denies: change in vision, blurry vision or photophobia ENMT: Reports: hoarseness; Denies: throat pain, enlarged tonsils, odynophagia or nasal congestion Card: Denies: chest pain, palpitations, irregular heart rhythm, edema, swelling of feet/ankles, lightheadedness, pre-syncope, dyspnea on exertion or orthopnea Resp: Denies: dyspnea, productive cough, non-productive cough, wheezing, stridor, pain on inspiration, change in phlegm color, hemoptysis or chest congestion GI: Denies: abdominal pain, nausea, vomiting, hematemesis, coffee ground emesis, dysphagia, heartburn, diarrhea, constipation, GI cramping, change in stool character, hematochezia or melena : Denies: flank pain, difficulty voiding, dysuria, urinary frequency, urinary urgency, urinary hesitancy or hematuria Musc: Denies: neck pain, back pain, extremity pain, joint swelling, joint warmth or deformity Neuro: Denies: headache(s), numbness in extremities, weakness in extremities, sensory changes, difficulty walking, frequent falls, dizziness, vertigo, behavioral changes, Slurred speech present or seizure-like activity Psych: Denies: anxiety, depression, suicidal ideation or homicidal ideation Endo: Denies: polyuria, polydipsia, tired all the time, cold intolerance or hot flashes Finn/Lymph: Denies: easy bruising or easy bleeding Medications/Allergies Home Medications Medication Instructions Recorded Confirmed Last Taken Type aspirin 81 mg tablet,delayed 81 mg PO DAILY 01/24/20 02/28/21 Unknown History release mirtazapine 30 mg tablet 30 mg PO QDAY 90 Days #90 tab 08/06/20 02/28/21 Unknown Rx amlodipine 2.5 mg tablet 2.5 mg PO BID #180 tab 10/15/20 02/28/21 Unknown Rx alprazolam 0.5 mg tablet 0.5 mg PO TID PRN 30 Days #90 tab 10/16/20 02/28/21 Unknown Rx tramadol 50 mg tablet 50 mg PO DAILY PRN #30 tab 11/06/20 02/28/21 Unknown Rx atorvastatin 20 mg tablet 20 mg PO DAILY #90 tab 11/29/20 02/28/21 Unknown Rx lisinopril 20 mg tablet 20 mg .ROUTE DAILY #90 tab 11/29/20 02/28/21 Unknown Rx metformin 500 mg tablet 250 mg PO BID #90 tab 11/29/20 02/28/21 Unknown Rx albuterol sulfate 90 mcg/actuation See Rx Instructions .ROUTE 01/25/21 02/28/21 Unknown Rx aerosol inhaler .COMPLEX #8.5 g Ventolin HFA 90 mcg/actuation 2 puff INHALATION Q6H PRN 30 Days 02/08/21 02/28/21 Unknown Rx aerosol inhaler #18 g NS galantamine 16 mg 24 hr 16 mg PO QAM #30 cap 02/28/21 02/28/21 Unknown Rx capsule,extended release galantamine 24 mg 24 hr 24 mg PO QAM #30 cap 02/28/21 02/28/21 Unknown Rx capsule,extended release galantamine 8 mg 24 hr 8 mg PO QAM #30 cap 02/28/21 02/28/21 Unknown Rx capsule,extended release clopidogrel 75 mg tablet 75 mg PO DAILY 90 Days #90 tab 03/19/21 Unknown Rx donepezil 10 mg tablet See Rx Instructions .ROUTE 03/19/21 Unknown Rx .COMPLEX #30 tablet Allergies Allergy/AdvReac Type Severity Reaction Status Date / Time No Known Allergies Allergy Verified 02/28/21 15:08 PFSH Acute PFSH: Medical History Anxiety Depression Diabetes History of stroke History of tobacco abuse Hypercholesteremia Hypertension Surgical History (Updated 04/26/21 @ 05:36 by Portia Quinones MD) History of tonsillectomy History of total hysterectomy Social History Smoking and tobacco status: former smoker Alcohol intake: never Vitals/I&O/Wt Last Vital Signs Temp 98.1 F 04/26/21 03:25 Pulse 93 04/26/21 03:25 Resp 22 H 04/26/21 03:25 BP 158/76 04/26/21 03:25 Pulse Ox 90 04/26/21 03:25 04/25/21 04/25/21 04/26/21 14:59 22:59 06:59 Intake Total 1110 / 1110 Balance 1110 / 1110 Weight last 48 hrs Weight 63.503 kg Weight 63.503 kg Physical Exam Narrative: EXAM NARRATIVE: General: No acute distress, AO x3 HEENT: PERRLA, pupils bilaterally equal and reactive, pallors not present Chest: Normal vesicular breath sounds, no added sounds, equal good air entry bilaterally CVS: S1-S2 regular, no murmurs, no tachycardia, no gallops, no rubs Abdomen: Soft, nontender, no organomegaly, bowel sounds present Neuro: No focal deficits, no facial deformity, AO x3, power 5/5 in all limbs Data : 04/25/21 17:40 04/25/21 22:54 A&P Assessment and plan (1) Generalized seizure: new onset seizure per reported history Witnessed by family member in car post ictal confusion noted upon initial arrival, currently patient is alert and awake, ambulating, no focal deficits received Keppra loading dose continue keppra 500mg BID CT head with chronic white matter ischemic changes, MRI head ordered suspect that high anion gap metabolic acidosis, leukocytosis related to post seizure changes, metabolic changes resolved on most recent CMP. n localizing signs or symptoms of infection. Low suspicion for meningoencephalitis given quick recovery of mentation to baseline, no neck stiffness, headache, fever. Status: Acute (2) Alzheimer disease: Status: Acute (3) Hypertension: Status: Acute Attestations Medical Necessity Statement*: observation admission, antcipate hospital stay less than 48 hrs for above defined care Coding Level of Care Code Acute [employer] Insurance Claims Adjuster for [facility] Fwd Diagnoses Generalized seizure R56.9 Alzheimer disease G30.9; F02.80 Hypertension I10
[2021-04-26 06:42] LABS: Basophils % 0.3 %; Eosinophils % 0.3 %; Hematocrit 42.7 % (37.0-47.0); Hemoglobin 13.6 g/dL (11.5-15.3); Lymphocytes # 1.3 10^3/uL (0.8-4.8); Lymphocytes % 9.9 %; Mean Corpuscular HGB Conc 31.9 g/dL (30.0-36.0); Mean Corpuscular Hemoglobin 29.2 pg (28.0-34.0); Mean Corpuscular Volume 91.6 fl (81-99); Mean Platelet Volume 9.2 fL (7.4-10.4); Monocytes # 0.6 10^3/uL (0.2-0.9); Monocytes % 4.9 %; Neutrophils # 11.03 10^3/uL (1.8-7.7); Neutrophils % 84.2 %; Nucleated Red Blood Cells % 0 %; Platelet Count 339 10^3/cmm (130-400); Red Blood Count 4.66 10^6/uL (4.1-5.3); White Blood Count 13.1 10^3/uL (4.0-10.0)
[2021-04-26 07:16] LABS: Alanine Aminotransferase 23 U/L (0-33); Albumin Level 3.9 g/dL (3.5-5.2); Alkaline Phosphatase 125 IU/L (35-105); Anion Gap 14.9 (5-19); Aspartate Amino Transferase 19 U/L (0-32); Blood Urea Nitrogen 10 mg/dL (8-23); Calcium 8.9 mg/dL (8.5-10.5); Carbon Dioxide 28 mmol/L (22-29); Chloride 103 mmol/L (98-107); Creatinine Clr Calc Pharmacy 54.0169; Globulin 2.9 g/dL (1.3-4.6); Glucose 124 mg/dL (65-115); Osmolality Calculated 294 mOsm/kg (285-295); Potassium 3.9 mmol/L (3.5-5.1); Sodium 142 mmol/L (136-145); Total Bilirubin 0.3 mg/dL (0.15-1.2); Total Protein 6.8 g/dL (6.6-8.7)
[2021-04-26 07:23] LABS: D Dimer 0.81 ug/mIFEU (0-0.59)
--- NOTE | 2021-04-26 08:08 | PC.PHAR ---
Addendum entered by Loida Mueller 04/26/21 08:13: PTS DAUGHTER KEVIN STATES THE PT DIDNT TAKE HER PM MEDS ON FRIDAY Original Note: PTS DAUGHTER KEVIN VERIFIED MEDICATIONS-PTS DAUGHTER STATES THE PT TAKES METFORMIN 250MG QAM EXT MED HISTORY SHOWS LAST FILLED ON 02/28/21 90D/S FOR 250MG BID-PTS DAUGHTER STATES THE PT IS STILL TAKING THE 16MG DOSE OF GALANTAMINE-NOTES ARE MADE IN THE PHARMACY COMMENTS-
[2021-04-26] MEDS: levETIRAcetam 500 mg Tablet PO (08:57)
[2021-04-26] MEDS: pantoprazole DR 40 mg Tablet PO (08:57)
[2021-04-26] MEDS: lisinopril 20 mg Tablet PO (08:57)
[2021-04-26] MEDS: aspirin 81 mg EC Tablet PO (08:57)
[2021-04-26] MEDS: amlodipine 5 mg Tablet PO (08:57)
[2021-04-26] MEDS: clopidogrel 75 mg Tablet PO (08:58)
--- NOTE | 2021-04-26 10:26 | PC.CHAP ---
Pastoral Care Encounter/Spiritual Assessment Type of Contact [] Declined equipment maintenance supervisor visit [] Patient/Family/Request visit [] Outpatient visit [] Follow-up visit [] Physician referral [] Code/Alert [x] Routine visit [] Staff referral [] Actively dying [] Patient sleeping [] Family support [] [] Out of room [] Palliative care [] [x] Receiving care in room [] Pre-surgical visit [] Trauma [x] Long length of stay [] ICU visit [] Other: Relational/Emotional Strength [x] Patient feels connected with others/family/visitors/staff [] Distress [] Loneliness/isolation [] Abandonment Spirituality of Patient [x] Person of Shellie [] Attends Episcopal of their Shellie [x] Believes in Prayer [] Reads Bible or Gnosticist materials [] There are Spiritual issues to be addressed Truck Driver Helper Interventions [x] Prayer [x] Active listening [x] Non-anxious presence [x] Spiritual/emotional support [] Crisis/trauma care [x] Spiritual counseling [] Bereavement support [] Provided bereavement packet [] Provided Bible/devotional materials [] Provided toy/stuffed animal, coloring book to patient or family member [] Provided Communion [] Anointing/[place] [] Salvation [x] Completed spiritual assessment [] Other: Impact on Illness or Injury [] Angry [] Fearful [x] Anxious [] Often cries [] Exhaustion [x] Unable to work [] Unable to attend yazidism [] Unable to walk/stand [] Unable to read [] Unable to drive [] Unable to eat/drink [] Unable to sleep [] Unable to be with family [] Patient intubated [] Other: Summary had casey doesn't know about her health and what needs to be done has a good attitude and will go home at some point under family care Time spent with patient 10 mins
--- NOTE | 2021-04-26 11:00 | MR_ITS ---
WS: [id number] MRI HEAD WITHOUT CONTRAST TECHNIQUE: Sagittal T1, T2 axial, T2 axial FLAIR, axial and coronal T1 images, axial susceptibility w eighted imaging, axial diffusion weighted images, and coronal T2 images were obtained. CLINICAL INFORMATION: new seizure episode COMPARISON: CT April 25, 2021, MRI 2013 FINDINGS: No evidence of restricted diffusion to suggest acute ischemia. Ventricular system and basal cisterns are patent. Advanced chronic small vessel changes with mild parenchymal volume loss. Small vessel varsha nges have progressed slightly since 2014. Normal posterior fossa. Normal vascular flow voids at the s kull base. No extra-axial fluid collections. No evidence of mass or mass effect. Paranasal sinuses and mastoid air cells are well aerated. Chronic lacunar infarcts in the left caudat e and bilateral basal ganglia. Small vessel changes in the shonna. Small amount of chronic hemosiderin in the left basal ganglia. Normal optic chiasm and pituitary infundibulum. Temporal lobes and hippocampal formations are normal in appearance. No signal abnormalities in the mesial temporal lobes. Cavernous sinuses and Meckel's c ave appears normal. MR/MR head wo con* [id number] IMPRESSION: 1. No evidence of restricted diffusion to suggest acute ischemia. 2. Advanced small vessel changes with mild parenchymal volume loss. Small vess el changes appears slightly progressed compared to 2014 3. Chronic lacunar infarcts in the left caudate and bilateral basal ganglia. 4. Small amount of chronic hemosiderin in the left basal ganglia. 5. Temporal lobes and hippocampal formations are normal in appearance. No sign al abnormalities in the mesial temporal lobes. 6. No other significant findings.
--- NOTE | 2021-04-26 12:23 | PM.PN ---
Subjective Subjective: Interval history: Patient was seen and examined this morning, she is on room air saturating well Mild wheezing noted Awake alert no focal deficit Respiratory therapist was also in the room she just received her breathing treatment Patient is stating that she does not have any history of seizure, she lives alone able to carry out daily activities on her own, she does not drive or operate any lawnmower, no recent fever, nausea, vomiting, no recent sick contacts Vitals/I&O/Wt Last Vital Signs Temp 98.3 F 04/26/21 07:56 Pulse 105 H 04/26/21 09:16 Resp 20 H 04/26/21 09:11 BP 155/73 04/26/21 07:56 Pulse Ox 94 04/26/21 09:11 04/25/21 04/26/21 04/26/21 22:59 06:59 14:59 Intake Total 1110 / 1110 120 / 120 Balance 1110 / 1110 120 / 120 Weight last 48 hrs Weight 63.503 kg Weight 63.503 kg Physical Exam Narrative: EXAM NARRATIVE: Patient was sitting at the bedside No focal deficit She is able to stand up without any lead assistant manager Romberg sign negative No signs of meningitis Nonfocal neuro exam S1, S2 sinus rhythm Mild diffuse wheezing noted patient saturating well on room air Dry cough Abdomen soft Lower extremity no edema No signs of meningoencephalitis Data : 04/26/21 06:16 04/26/21 06:16 A&P Assessment and plan (1) Alzheimer disease: Status: Acute (2) Generalized seizure: Status: Acute (3) Diabetes: Status: Acute Qualifiers: Diabetes mellitus type: type 2 Diabetes mellitus retirement insulin use: without vermin exterminator use Diabetes mellitus complication status: with hyperglycemia Qualified Code(s): E11.65 - Type 2 diabetes mellitus with hyperglycemia (4) Anxiety: Status: Acute Additional A&P Information Isolated episode of tonic-clonic seizure We will request pro lactate level CT head unremarkable No neuro focal deficit Patient is stating that she hardly takes tramadol at home She does have history of dementia for quite now she is awake and alert oriented x3 GCS 15 CSF panel not indicated at this point She is afebrile Mild leukocytosis 13,000, improved from 17,000, Normal TSH Hypoxia noted on ABG on 2 L however currently saturating well on room air We will request CTA to rule out PE No signs of UTI MRI today to rule out any intracranial pathology for her isolated event of seizures Currently she is on Keppra, there is no electrolyte abnormality, I would like her to follow-up outpatient to see if she would benefit from antiepileptic therapy Cardiac diet Full code DVT prophylaxis Lovenox Attestations Medical Necessity Statement*: Anticipating discharge tomorrow Time Spent in Patient Care: 16 - 35 minutes Coding Level of Care Code Acute Location Worker for [facility] Fwd Diagnoses Alzheimer disease G30.9; F02.80 Generalized seizure R56.9 Diabetes E11.65 Diabetes mellitus type: type 2 Diabetes mellitus retirement insulin use: without retirement use Diabetes mellitus complication status: with hyperglycemia Anxiety F41.9
--- NOTE | 2021-04-26 12:28 | CT_ITS ---
WS: [id number] CT angio chest PE protcl [id number] REASON FOR EXAM: Hypoxia TECHNIQUE: Coronal and sagittal 2-D and MIP reformations. IV CONTRAST ADMINISTERED: 62 mL of Omnipaque 350 TOTAL EXAM DLP: 544.[address] scans at [facility] use at least one of these dose optimization techniques: automat ed exposure control; mA and/or kV adjustment per patient size (includes targeted exams where dose is matched to clinical indication); or iterative reconstruction. FINDINGS: No pulmonary emboli. Calcification of the thoracic aorta is mildly ectatic and tortuous. No aneurysmal dilatation. No mediastinal adenopathy or mass. Several 8 to 10 mm nodes seen in the left inferior hilar and infra hilar region. Do not appear significant. Multiple small lucencies compatible with central lobar emphysema. There is are areas of subpleural in terstitial changes in both lungs, fairly symmetric. Mild bronchial wall thickening in the lower lobes . Calcified granulomatous disease otherwise no nodule or lung mass. No definite acute infiltrative process identified. No pleural effusion. CT/CT angio chest PE protcl [id number] IMPRESSION: No acute pulmonary finding. Chronic appearing interstitial changes and bronchia l wall thickening. Central lobar emphysema likely.
[2021-04-26] MEDS: iohexol 350 mg/mL 100 mL Btl IV (14:13)
[2021-04-26] MEDS: ipratropium-albuterol 3 mL Neb INHALATION ×2 (14:48→19:57)
[2021-04-26] MEDS: loratadine 10 mg Tablet PO (18:40)
[2021-04-26] MEDS: donepezil 5 MG Tablet 10 MG PO (20:49)
[2021-04-27 03:22] VITALS: BP 155/68; PULSE 90; RESP 12; TEMP 36.9; O2SAT 90
[2021-04-27 05:31] LABS: ABG PCO2 41.2 mmHg (35-45); ABG PH Result 7.45 (7.35-7.45); Arterial Blood Gas Hematocrit 43.7 % (37-47); Base Excess ABG 3.9 mmol/L (-2.0-2.0); Blood Gas Allen Test Pos; Blood Gas Sample Site Radial, left; Blood Gas Sample Type Arterial; HCO3 ABG 28.3 mmol/L (22-26); PO2 ABG 69.9 mmHg (80.0-100.0)
[2021-04-27 05:43] LABS: Basophils % 0.1 %; Hematocrit 42.4 % (37.0-47.0); Hemoglobin 13.7 g/dL (11.5-15.3); Lymphocytes # 0.8 10^3/uL (0.8-4.8); Mean Corpuscular HGB Conc 32.3 g/dL (30.0-36.0); Mean Corpuscular Hemoglobin 29.3 pg (28.0-34.0); Mean Corpuscular Volume 90.8 fl (81-99); Mean Platelet Volume 9.5 fL (7.4-10.4); Monocytes # 0.1 10^3/uL (0.2-0.9); Monocytes % 0.9 %; Neutrophils # 10.01 10^3/uL (1.8-7.7); Neutrophils % 90.6 %; Nucleated Red Blood Cells % 0 %; Platelet Count 322 10^3/cmm (130-400); Red Blood Count 4.67 10^6/uL (4.1-5.3)
[2021-04-27 06:07] LABS: Anion Gap 16.2 (5-19); Blood Urea Nitrogen 14 mg/dL (8-23); Carbon Dioxide 27 mmol/L (22-29); Chloride 101 mmol/L (98-107); Creatinine Clr Calc Pharmacy 54.0169; Glucose 198 mg/dL (65-115); Osmolality Calculated 296 mOsm/kg (285-295); Potassium 4.2 mmol/L (3.5-5.1); Sodium 140 mmol/L (136-145)
[2021-04-27 07:21] VITALS: BP 159/75; PULSE 79; RESP 16; TEMP 36.8; O2SAT 92
[2021-04-27 07:46] VITALS: PULSE 97; RESP 20; O2SAT 93
[2021-04-27] MEDS: clopidogrel 75 mg Tablet PO (08:40)
[2021-04-27] MEDS: pantoprazole DR 40 mg Tablet PO (08:40)
[2021-04-27] MEDS: loratadine 10 mg Tablet PO (08:40)
[2021-04-27] MEDS: amlodipine 5 mg Tablet PO (08:40)
[2021-04-27] MEDS: lisinopril 20 mg Tablet PO (08:40)
[2021-04-27] MEDS: aspirin 81 mg EC Tablet PO (08:40)
[2021-04-27 11:40] VITALS: BP 173/78; PULSE 96; RESP 18; TEMP 36.8; O2SAT 90
--- NOTE | 2021-04-27 11:52 | PM.DCS ---
Discharge Providers Date of Admission: 04/25/21 21:00 Date of Discharge: April 27, 2021 Attending Provider at Admission: Portia Quinones MD Attending Provider at Discharge: Wesley Uriostegui MD Primary Care Provider: Coco Flores MD Diagnoses at Discharge Discharge Diagnosis (1) Alzheimer disease: Status: Acute (2) Generalized seizure: Status: Acute (3) Diabetes: Status: Acute Qualifiers: Diabetes mellitus complication status: with hyperglycemia Diabetes mellitus termite exterminator helper insulin use: without termite exterminator helper use Diabetes mellitus type: type 2 Qualified Code(s): E11.65 - Type 2 diabetes mellitus with hyperglycemia (4) Anxiety: Status: Acute Reason for Visit Reason for Visit: SEIZURE LIKE ACTIVITY Hospital Course Hospital Course History of Present Illness by Dr. Quinones, admitting physician Maria M Klein is a 75 year old female with a past medical history of hypertension, diabetes, dementia, in her usual state of health until this evening when she had reported episode of seizure. Her history obtained from ER, patient was in the car with her daughter which she was noted to have tonic-clonic movement of bilateral arms and legs, frothing at mouth, followed by loss of consciousness and altered mental status. Upon presentation to the ER, at first she was noted to be confused but mental status has back to baseline since then. Patient does not recall events leading up to the admission. States she has not been sick recently. No reported fever, chest pain, palpitations, photophobia or neck stiffness. No complains of headache at this time. Patient has ambulated in the room to the bathroom and back. There are no focal neuro deficits. CT head shows diffuse chronic ischemic white matter changes. Labs in the ER notable for leukocytosis of 17, initial blood gas with pH of 7.12, CMP with metabolic acidosis and anion gap of 33. Acidosis has resolved with hydration alone. Patient noted to have new 02 requirement of 2lpm in ER, now on RA since arrival on med/surg Hospital course Patient was admitted for evaluation of isolated episode of seizure. This event happened when she was with her daughter in the car. She recently had her hair done and as per the daughter alot of chemicals were used. Daughter was driving her mother home when she noticed that her mother was pointing towards something nonpurposefully, that caught her attention, & when the daughter looked at her she noticed mild frothing in her mouth. Then she became extremely weak lethargic and drowsy with confusion until she was brought to the ER. Her cranial imaging was unremarkable. Head MRI and CT scan was requested by the admitting physician. She remained afebrile no signs of confusion or strokelike symptoms. No focal deficits. She was awake and alert throughout her hospitalization. She was kept on Keppra during her hospitalization. Her prolactin is also unremarkable, blood chemistry unremarkable. There were no signs of meningoencephalitis, CSF panel was not requested. Only new finding was expiratory wheezing which was noticed on lung auscultation, she was saturating well on room air by the time I saw her, she does have history of smoking, use albuterol/rescue inhalers on occasional basis. She was tachycardic with wheezing that is why I requested CTA chest which was unremarkable. It did show chronic COPD changes. At the time of discharge I will give her Spiriva for her COPD,(she will get rescue inhaler and LAMA) follow-up appointment arranged with Dr. Yoder She will not get any antiepileptics at the time of discharge as this is an isolated episode of seizure and causes is unknown at this time, no history of epilepsy, would recommend outpatient follow-up with Dr. Lance, she does see her for her memory impairment. Patient lives alone with this isolated episode of seizure would recommend living with her family at least for next few months. Family has been updated regarding my concern. Patient is not interested to move with her daughter at this point. She would like to think about it in near future. She does not drive or operate any heavy machinery. Physical Exam Narrative: EXAM NARRATIVE: Very pleasant elderly female Awake alert oriented x3 GCS 15 No focal deficit Wheezing has improved saturating well on room air Abdomen soft No joint swelling S1, S2 sinus rhythm No signs of meningoencephalitis no signs of confusion No joint swelling Discharge Data Data Completed and Pending: Completed Studies During Hospitalization Category Date Time Status CT angio chest PE protcl [id number] Rout ine Cat Scan 04/26/21 12:[address] head wo con* [id number] Stat Cat Scan 04/25/21 17:38 Completed XR chest 1V mary ble [id number] Stat Exams 04/25/21 17:38 Completed MR head wo con* [id number] Routine MRI 04/26/21 11:00 Completed Pending at discharge Category Date Time Status Streptococcus Cul ture Group A Stat Lab 04/25/21 18:39 Results MR head wo con* [id number] Routine MRI 04/26/21 11:00 Unverified Labs from last 24 hours 04/27/21 04/27/21 04/27/21 05:18 05:10 05:10 WBC 11.0 H RBC 4.67 Hgb 13.7 Hct 42.4 MCV 90.8 MCH 29.3 MCHC 32.3 RDW 13.0 Plt Count 322 MPV 9.5 Neut % (Auto) 90.6 Lymph % (Auto) 7.0 [place] % (Auto) 0.9 Eos % (Auto) 0.0 Baso % (Auto) 0.1 Neut # (Auto) 10.01 H Lymph # (Auto) 0.8 [place] # (Auto) 0.1 L Eos # (Auto) 0.0 Baso # (Auto) 0.0 Nucleated RBC % (a uto) 0 Nucleated RBCs # 0.0 Specimen Type Arterial Sample Site Radial, left ABG pH 7.45 ABG pCO2 41.2 ABG pO2 69.9 L ABG HCO3 28.3 H ABG Base Excess 3.9 H [place] Test Pos Hematocrit 43.7 O2 Delivery Device None FiO2 21.0 Leather Colorer ID Rieri Sodium 140 Potassium 4.2 Chloride 101 Carbon Dioxide 27 Anion Gap 16.2 BUN 14 Creatinine 0.6 GFR Calculation Not Reportable Glucose 198 H Calculated Osmolal ity 296 H Calcium 10.0 Prolactin 04/26/21 06:16 WBC RBC Hgb Hct MCV MCH MCHC RDW Plt Count MPV Neut % (Auto) Lymph % (Auto) [place] % (Auto) Eos % (Auto) Baso % (Auto) Neut # (Auto) Lymph # (Auto) [place] # (Auto) Eos # (Auto) Baso # (Auto) Nucleated RBC % (a uto) Nucleated RBCs # Specimen Type Sample Site ABG pH ABG pCO2 ABG pO2 ABG HCO3 ABG Base Excess [place] Test Hematocrit O2 Delivery Device FiO2 Leather Colorer ID Sodium Potassium Chloride Carbon Dioxide Anion Gap BUN Creatinine GFR Calculation Glucose Calculated Osmolal ity Calcium Prolactin 8.20 Vitals: Last Vital Signs Temp 98.3 F 04/27/21 11:40 Pulse 96 04/27/21 11:40 Resp 18 04/27/21 11:40 BP 173/78 04/27/21 11:40 Pulse Ox 90 04/27/21 11:40 Discharge Plan Discharge Patient Disposition: Home Condition: Stable Prescriptions: New Spiriva with HandiHaler 18 mcg capsule, w/inhalation device 1 cap inhalation DAILY Qty: 30 RF: 1 Continued aspirin [Adult Aspirin Regimen] 81 mg tablet,delayed release (DR/EC) 81 mg PO QAM RF: 0 galantamine 16 mg capsule,ext rel. pellets 24 hr 16 mg PO QAM Qty: 30 RF: 0 amlodipine 2.5 mg tablet 2.5 mg PO BID Qty: 180 RF: 1 albuterol sulfate [Ventolin HFA] 90 mcg/actuation HFA aerosol inhaler 2 puff inhalation Q6H PRN (Reason: shortness of breath or wheezing) 30 Days Qty: 18 RF: 11 Claritin 10 mg Tablet 10 mg PO QAM RF: 0 metformin 500 mg tablet 250 mg PO QAM RF: 0 atorvastatin 20 mg tablet 20 mg PO BEDTIME RF: 0 lisinopril 20 mg tablet 20 mg PO QAM RF: 0 clopidogrel 75 mg tablet 75 mg PO QAM RF: 0 alprazolam 0.5 mg tablet 0.5 mg PO BEDTIME RF: 0 mirtazapine 30 mg tablet 30 mg PO BEDTIME RF: 0 galantamine 24 mg capsule,ext rel. pellets 24 hr 24 mg PO QAM RF: 0 Discontinued tramadol 50 mg tablet 50 mg PO DAILY PRN (Reason: pain) Qty: 30 RF: 2 Discharge Orders: Discharge Order (Routine); Ordered 04/27/21 Ordered By: Wesley Uriostegui Referrals: Milli Lance MD [Physician] - 1-3 days (Family prefers appointment after 3:00PM) Tania Yoder MD [Physician] - 1 week (Family prefers appointment after 3:00PM New patient appointment) Discharge Diet: Cardiac Discharge Activity: Increase activity as tolerated Patient Instructions: Opioid Safety Activity Restrictions/Additional Instructions: Refrain from driving Discharge Attestations Time Spent in Discharge Care*: less than 30 min Quality Metrics Clinical Quality Measures During this hospital stay, did patient experience: None Coding Level of Care Code Acute [facility] FW DE note Diagnoses Alzheimer disease G30.9; F02.80 Generalized seizure R56.9 Diabetes E11.65 Diabetes mellitus complication status: with hyperglycemia Diabetes mellitus termite exterminator helper insulin use: without termite exterminator helper use Diabetes mellitus type: type 2 Anxiety F41.9
--- NOTE | 2021-05-04 08:21 | PC.SOCIAL ---
discharge follow up call made, spoke with patients daughter, Marta. She reports patient is doing well. The new inhaler, spiriva is working great for patient. daughter is aware that tramadol needs to be dc'd. discussed follow up appointment dates and times with daughter, she will be taking the patient to those appointments. daughter denies any questions or concerns regarding patient care.
== END 2021-04-27 14:15 | disposition home or self-care (01) ==
LOC: ER 21:18 → MEDSURG 21:50
PROVIDERS: Emergency Medicine; Admitting Provider Student in an Organized Health Care Education/Training Program; Emergency Provider Emergency Medicine; PCP Family Medicine; Visit Provider Internal Medicine
DX: R56.9 Unspecified convulsions (principal); G30.9 Alzheimer's disease, unspecified; F02.80 Dementia in other diseases classified elsewhere, unspecified severity, without behavioral disturbance, psychotic disturbance, mood disturbance, and anxiety; E11.65 Type 2 diabetes mellitus with hyperglycemia; F41.9 Anxiety disorder, unspecified; I10 Essential (primary) hypertension; Z79.82 Long term (current) use of aspirin; Z86.73 Personal history of transient ischemic attack (TIA), and cerebral infarction without residual deficits; Z87.891 Personal history of nicotine dependence; E78.00 Pure hypercholesterolemia, unspecified
CPT/HCPCS: 36415; 36416; 36600; 70450; 70551; 71045; 71275; 80048; 80051; 80053; 80306; 80307; 81001; 82330; 82803; 82805; 82962; 83880; 84146; 84443; 84484; 85025; 85378; 85610; 85730; 87081; 87880; 93005; 94640; 96365; 96375; 99285; G0378; J1953; J2920; J7030; J7611; Q9967

== ENCOUNTER → 2021-04-30 15:22 | Outpatient (BNVA) | payer MEDICARE, SELFPAY | PROVIDERS: PCP Family Medicine; Referring Provider Internal Medicine; Visit Provider Specialist | DX: G30.9 Alzheimer's disease, unspecified (principal); F02.80 Dementia in other diseases classified elsewhere, unspecified severity, without behavioral disturbance, psychotic disturbance, mood disturbance, and anxiety; G40.309 Generalized idiopathic epilepsy and epileptic syndromes, not intractable, without status epilepticus; Z87.891 Personal history of nicotine dependence | CPT/HCPCS: 99214; 99215 ==

== ENCOUNTER → 2021-05-29 15:20 | Outpatient (BNVA) | payer MEDICARE, MEDICAID, SELFPAY | PROVIDERS: PCP Family Medicine; Visit Provider Specialist | DX: G30.9 Alzheimer's disease, unspecified (principal); F02.80 Dementia in other diseases classified elsewhere, unspecified severity, without behavioral disturbance, psychotic disturbance, mood disturbance, and anxiety; G40.309 Generalized idiopathic epilepsy and epileptic syndromes, not intractable, without status epilepticus; J44.9 Chronic obstructive pulmonary disease, unspecified; Z87.891 Personal history of nicotine dependence | CPT/HCPCS: 99214 ==

== ENCOUNTER 2021-08-13 13:45 | Outpatient (CLI) | payer MEDICARE, SELFPAY ==
--- NOTE | 2021-08-13 13:58 | MM_ITS ---
WS: [id number] BILATERAL DIGITAL SCREENING MAMMOGRAPHY WITH CAD CLINICAL INFORMATION: SCREENING HISTORY: Screening mammogram. No current complaints. COMPARISON: July 27, 2020 TECHNIQUE: Bilateral CC and MLO views. FINDINGS: The breasts are composed of heterogeneous fibroglandular density tissue, which can limit the detectio n of small underlying mass lesions. Punctate and secretory calcifications. 5 mm asymmetric density up per quadrant right breast appears new or progressed compared to previous. Recommend spot compression views and ultrasound for further evaluation. Left breast is unremarkable and unchanged MM/[place] [id number] IMPRESSION: BI-RADS: 0-Incomplete: Need additional imaging evaluation FOLLOW UP: Need Additional Imaging Recommend RIGHT breast diagnostic mammography and ultrasound.
== END 2021-08-13 13:46 | disposition home or self-care (01) ==
LOC: RADSHAW 13:52
PROVIDERS: PCP Family Medicine; Visit Provider Family Medicine
DX: Z12.31 Encounter for screening mammogram for malignant neoplasm of breast (principal)
CPT/HCPCS: 77067

== ENCOUNTER 2021-08-30 12:16 | Outpatient (CLI) | payer MEDICARE, SELFPAY ==
--- NOTE | 2021-08-30 12:30 | MM_ITS ---
WS: [id number] RIGHT DIGITAL MAMMOGRAPHY WITH CAD CLINICAL INFORMATION: R92.8 - Other abnormal and inconclusive findings on diagn... COMPARISON: August 13, 2021 TECHNIQUE: 3 views of the right breast were obtained. FINDINGS: The right breast is composed of heterogeneous fibroglandular tissue, which can limit the detection o f small underlying mass lesions. Previously described 5 mm asymmetric density upper quadrant RIGHT br east along the posterior nipple line is less distinct today and partially compresses out .Ultrasound is pending. ULTRASOUND BREAST RIGHT TECHNIQUE: Ultrasound right breast focused area of concern. CLINICAL INFORMATION: R92.8 - Other abnormal and inconclusive findings on diagn... FINDINGS: Ultrasound RIGHT breast at the 12:00 to 1:00 positions and at the areola. Dense underlying parenchyma l tissue. No cystic or solid lesions. No suspicious lesions to target for biopsy. Mild ductal ectasia . Recommend return to annual screening mammography. MM/[place] [id number] IMPRESSION: BI-RADS: 2-Benign FOLLOW UP: 1 Year Follow-up Recommend return to annual screening mammography.
--- NOTE | 2021-08-30 13:00 | US_ITS ---
WS: [id number] RIGHT DIGITAL MAMMOGRAPHY WITH CAD CLINICAL INFORMATION: R92.8 - Other abnormal and inconclusive findings on diagn... COMPARISON: August 13, 2021 TECHNIQUE: 3 views of the right breast were obtained. FINDINGS: The right breast is composed of heterogeneous fibroglandular tissue, which can limit the detection o f small underlying mass lesions. Previously described 5 mm asymmetric density upper quadrant RIGHT br east along the posterior nipple line is less distinct today and partially compresses out .Ultrasound is pending. ULTRASOUND BREAST RIGHT TECHNIQUE: Ultrasound right breast focused area of concern. CLINICAL INFORMATION: R92.8 - Other abnormal and inconclusive findings on diagn... FINDINGS: Ultrasound RIGHT breast at the 12:00 to 1:00 positions and at the are[place]. Dense underlying parenchyma l tissue. No cystic or solid lesions. No suspicious lesions to target for biopsy. Mild ductal ectasia . Recommend return to annual screening mammography. US/US breast RT limited* [id number] IMPRESSION: BI-RADS: 2-Benign FOLLOW UP: 1 Year Follow-up Recommend return to annual screening mammography.
== END 2021-08-30 12:17 | disposition home or self-care (01) ==
PROVIDERS: PCP Family Medicine; Visit Provider Family Medicine
DX: R92.8 Other abnormal and inconclusive findings on diagnostic imaging of breast (principal)
CPT/HCPCS: 76642; 77065

== ENCOUNTER → 2021-11-26 14:29 | Outpatient (BNVA) | payer MEDICARE, SELFPAY | PROVIDERS: PCP Family Medicine; Visit Provider Specialist | DX: G30.9 Alzheimer's disease, unspecified (principal); F02.80 Dementia in other diseases classified elsewhere, unspecified severity, without behavioral disturbance, psychotic disturbance, mood disturbance, and anxiety; Z87.891 Personal history of nicotine dependence | CPT/HCPCS: 99214; 99215 ==

== ENCOUNTER → 2022-01-16 13:03 | Outpatient (BNVA) | payer MEDICARE, SELFPAY | PROVIDERS: PCP Family Medicine; Referring Provider Specialist; Visit Provider Nurse Practitioner | DX: G30.9 Alzheimer's disease, unspecified (principal); F02.80 Dementia in other diseases classified elsewhere, unspecified severity, without behavioral disturbance, psychotic disturbance, mood disturbance, and anxiety | CPT/HCPCS: 96116; 99213; 99214 ==

== ENCOUNTER → 2022-03-11 16:26 | Outpatient (BNVA) | payer MEDICARE, SELFPAY | PROVIDERS: PCP Family Medicine; Visit Provider Family Medicine | DX: E11.9 Type 2 diabetes mellitus without complications; M19.90 Unspecified osteoarthritis, unspecified site; F41.9 Anxiety disorder, unspecified; J44.9 Chronic obstructive pulmonary disease, unspecified | CPT/HCPCS: 80053; 83036; 85025 ==

== ENCOUNTER → 2022-05-20 15:21 | Outpatient (BNVA) | payer MEDICARE, SELFPAY | PROVIDERS: PCP Family Medicine; Visit Provider Family Medicine | DX: E11.65 Type 2 diabetes mellitus with hyperglycemia (principal) | CPT/HCPCS: 80053; 83036 ==

== ENCOUNTER → 2022-05-27 14:45 | Outpatient (BNVA) | payer MEDICARE, SELFPAY | PROVIDERS: PCP Family Medicine; Visit Provider Specialist | DX: G30.9 Alzheimer's disease, unspecified (principal); F02.80 Dementia in other diseases classified elsewhere, unspecified severity, without behavioral disturbance, psychotic disturbance, mood disturbance, and anxiety; G40.309 Generalized idiopathic epilepsy and epileptic syndromes, not intractable, without status epilepticus | CPT/HCPCS: 99213 ==

== ENCOUNTER → 2022-06-10 15:55 | Outpatient (BNVA) | payer MEDICARE, SELFPAY | PROVIDERS: PCP Family Medicine; Visit Provider Family Medicine | DX: E11.9 Type 2 diabetes mellitus without complications (principal) | CPT/HCPCS: 80048 ==

== ENCOUNTER 2022-08-23 12:19 | Inpatient (IN) | payer MEDICARE, SELFPAY ==
[2022-08-23] VITALS (17 sets, daily range): BP systolic 102–143; BP diastolic 50–83; PULSE 94–116; RESP 16–39; TEMP 36.2–36.9; O2SAT 92–100; BMI 21.7
[2022-08-23 13:43] LABS: Add Urine Microscopic? NO; Charge for UA Resulting for Rev
[2022-08-23 13:47] LABS: Bilirubin Urine Neg (Negative); Blood Urine Neg (Negative); Glucose Urine UA 4+ (Normal); Ketones Urine 1+ (Negative); Leukocyte Esterase Urine Negative (Negative); Nitrate Urine Negative (Negative); Protein Urine Neg (Negative); Specific Gravity, Urine 1.012 (1.005-1.030); Urine Appearance Clear (CLEAR); Urine Color Straw (Yellow); Urobilinogen Urine Neg (Negative); pH Urine 5 (5-7)
--- NOTE | 2022-08-23 15:43 | W.ED.AMS ---
HPI - Altered Mental Status General: Chief Complaint: Altered Mental Status Stated Complaint: trouble walking/weak Time Seen by Provider: 08/23/22 15:15 History of Present Illness: 77-year-old female presents emergency room she had an episode of imbalance. Over the last several weeks few days she has had worsening confusion at times. She is evidently been seen and been told she has Alzheimer's the past but it seems to be getting worse lately. Today she had an episode where she had difficult time with her balance as she walked out of [facility] [place]. Her family evidently videoed this and watched the video she had a brief PFSH ED PFSH: Medical History Alzheimer disease Anxiety Depression Diabetes History of stroke History of tobacco abuse Hypercholesteremia Hypertension Surgical History History of tonsillectomy History of total hysterectomy Social History Smoking and tobacco status: former smoker Quit status (tobacco): has quit using tobacco Year quit tobacco: 2018 2 PACK PER DAY X 58 Alcohol intake: never Course Vital Signs: Vital signs: Vital Signs Temperature 98.4 F 08/23/22 14:45 Pulse Rate 109 H 08/23/22 14:45 Respiratory Rate 17 08/23/22 14:45 Blood Pressure 112/69 08/23/22 14:45 Pulse Oximetry 94 08/23/22 14:45 Oxygen Delivery Me thod 08/23/22 14:45 MDM - Altered Mental Status Lab Data Laboratory Results Urine Color Straw (Yellow) 08/23/22 12:42 Urine Appearance Clear (CLEAR) 08/23/22 12:42 Urine pH 5 (5-7) 08/23/22 12:42 Ur Specific [place] 1.012 (1.005-1.030) 08/23/22 12:42 Urine Protein Neg (Negative) 08/23/22 12:42 Urine Glucose (UA) 4+ (Normal) H 08/23/22 12:42 Urine Ketones 1+ (Negative) H 08/23/22 12:42 Urine Blood Neg (Negative) 08/23/22 12:42 Urine Nitrate Negative (Negative) 08/23/22 12:42 Urine Bilirubin Neg (Negative) 08/23/22 12:42 Urine Urobilinogen Neg mg/dL (Negative) 08/23/22 12:42 Ur Leukocyte Esterase Negative (Negative) 08/23/22 12:42 Discharge Plan Discharge Condition: Stable Prescriptions: No Action aspirin [Adult Aspirin Regimen] 81 mg tablet,delayed release (DR/EC) 81 mg PO QAM alprazolam 0.5 mg tablet 0.5 mg PO TID PRN (Reason: see pharmacy comments) Qty: 90 5RF quetiapine 25 mg tablet See Rx Instructions .ROUTE .COMPLEX Qty: 60 2RF Dose Instruction: TAKE 1 TABLET BY MOUTH TWICE DAILY Rx Instructions: TAKE 1 TABLET BY MOUTH TWICE DAILY levetiracetam [Keppra XR] 500 mg tablet extended release 24 hr 500 mg PO DAILY Qty: 90 3RF Rx Instructions: 340 be Please refill as a 90-day supply with 3 refills galantamine 24 mg capsule,ext rel. pellets 24 hr 24 mg PO QAM Qty: 90 5RF Rx Instructions: administer with breakfast 340B citalopram 20 mg tablet 20 mg PO DAILY Qty: 30 5RF (DME) FreeStyle Lite Strips Strip See Rx Instructions .Route Qty: 100 3RF Rx Instructions: to use once daily in freestyle meter 90 day supply (DME) blood-glucose meter [FreeStyle Lite Meter] Kit See Rx Instructions .Route Qty: 1 0RF Rx Instructions: use once daily to check blood sugar tramadol 50 mg tablet 50 mg PO DAILY PRN (Reason: pain) Qty: 30 2RF sitagliptin phosphate 100 mg tablet 100 mg PO DAILY Qty: 30 3RF Spiriva with HandiHaler 18 mcg capsule, w/inhalation device 1 cap inhalation DAILY Qty: 30 5RF albuterol sulfate [Ventolin HFA] 90 mcg/actuation HFA aerosol inhaler 2 puff inhalation Q6H PRN (Reason: shortness of breath or wheezing) 30 Days Qty: 18 11RF amlodipine 2.5 mg tablet See Rx Instructions .ROUTE .COMPLEX Qty: 180 1RF Dose Instruction: Take 1 tablet by mouth twice daily Rx Instructions: Take 1 tablet by mouth twice daily mirtazapine 30 mg tablet See Rx Instructions .ROUTE .COMPLEX Qty: 90 1RF Dose Instruction: Take 1 tablet by mouth once daily for 90 days Rx Instructions: Take 1 tablet by mouth once daily for 90 days metformin 500 mg tablet 500 mg PO BID 90 Days Qty: 180 3RF glipizide 5 mg tablet 7.5 mg PO BID 30 Days Qty: 90 2RF Rx Instructions: start 1/2 twice daily before meal. Call doctor in 2 weeks. clopidogrel 75 mg tablet 75 mg PO QAM 90 Days Qty: 90 3RF atorvastatin 20 mg tablet See Rx Instructions .ROUTE .COMPLEX Qty: 90 1RF Dose Instruction: TAKE 1 TABLET BY MOUTH EVERY DAY Rx Instructions: TAKE 1 TABLET BY MOUTH EVERY DAY lisinopril 20 mg tablet 20 mg PO QAM 90 Days Qty: 90 2RF Claritin 10 mg tablet 10 mg PO TID Referrals: Coco Flores MD [Primary Care Provider] - Coding Level of Care Code ED [employer] Worker for Yolette Patton
--- NOTE | 2022-08-23 16:05 | CTR_ITS ---
PROCEDURE INFORMATION: Exam: CT Head Without Contrast Exam date and time: 08/23/2022 4:13 PM Age: 77 years old Clinical indication: Altered mental status/memory loss; Confusion or disorientation; Additional info: Increased confusion TECHNIQUE: Imaging protocol: Computed tomography of the head without contrast. Radiation optimization: All CT scans at this facility use at least one of these dose optimization techniques: automated exposure control; mA and/or kV adjustment per patient size (includes targeted exams where dose is matched to clinical indication); or iterative reconstruction. Other protocol: This patient has received 0 known CTs and 0 known cardiac nuclear medicine studies in the 12 months prior to the current study. COMPARISON: MR head wo con* [id number] 04/26/2021 11:38 AM RADIATION DOSE METRICS: Total DLP (mGy-cm): 1093.48 FINDINGS: Brain: Large amount of diffuse white matter disease likely reflecting chronic microvascular ischemic changes. Bilateral chronic frontal lobe basal ganglia region lacunar type infarcts. Cerebral ventricles: No ventriculomegaly. Paranasal sinuses: Visualized sinuses are unremarkable. No fluid levels. Mastoid air cells: Visualized mastoid air cells are well aerated. Bones/joints: Unremarkable. No acute fracture. Soft tissues: Unremarkable. CT/CT head wo con* [id number] IMPRESSION: 1. Negative for intracranial hemorrhage or mass effect. 2. Large amount of diffuse white matter disease likely reflecting chronic microvascular ischemic changes. 3. Bilateral chronic frontal lobe basal ganglia region lacunar type infarcts.
--- NOTE | 2022-08-23 16:07 | XRR_ITS ---
PROCEDURE INFORMATION: Exam: XR Chest Exam date and time: 08/23/2022 4:18 PM Age: 77 years old Clinical indication: Other: AMS; Additional info: AMS, weak, off balance TECHNIQUE: Imaging protocol: Radiologic exam of the chest. Views: 1 view. COMPARISON: CR XR chest 1V portable [id number] 04/25/2021 5:55 PM FINDINGS: Lungs: Unremarkable. No consolidation. Pleural spaces: Unremarkable. No pleural effusion. No pneumothorax. Heart/Mediastinum: Unremarkable. No cardiomegaly. Bones/joints: Unremarkable. XR/XR chest 1V portable [id number] IMPRESSION: No acute findings.
[2022-08-23 16:25] LABS: Basophils % 0.1 %; Hematocrit 43.7 % (37.0-47.0); Hemoglobin 13.4 g/dL (11.5-15.3); Lymphocytes # 0.4 10^3/uL (0.8-4.8); Lymphocytes % 3.1 %; Mean Corpuscular HGB Conc 30.7 g/dL (30.0-36.0); Mean Corpuscular Hemoglobin 29.6 pg (28.0-34.0); Mean Corpuscular Volume 96.7 fl (81-99); Mean Platelet Volume 10.2 fL (7.4-10.4); Monocytes # 0.5 10^3/uL (0.2-0.9); Monocytes % 3.4 %; Neutrophils # 12.73 10^3/uL (1.8-7.7); Neutrophils % 92.9 %; Nucleated Red Blood Cells % 0 %; Platelet Count 498 10^3/cmm (130-400); Red Blood Count 4.52 10^6/uL (4.1-5.3); Red Cell Distribution Width 12.6 % (12.1-15.1); White Blood Count 13.7 10^3/uL (4.0-10.0)
--- NOTE | 2022-08-23 17:16 | ED_ITS ---
Documented by User: Edd Interiano DO 08/24/22 06:16 HPI - General Adult General: Chief complaint: Altered Mental Status Stated complaint: trouble walking/weak Time Seen by Provider: 08/23/22 15:15 Source: patient and family Mode of arrival: ambulatory History of Present Illness: 77-year-old female presents emergency room she had an episode of imbalance. Over the last several weeks few days she has had worsening confusion at times. She is evidently been seen and been told she has Alzheimer's the past but it seems to be getting worse lately. Today she had an episode where she had difficult time with her balance as she walked out of [employer] [place]. Her family evidently videoed this and watched the video she had a brief Onset (ago): hour(s) Relieving factors: none Exacerbating factors: none Associated symptoms: Deny chest pain, confusion, cough, diaphoresis, decreased appetite, dyspnea, fevers/chills, headache(s), malaise, nausea, rash, palpitations, seizures, short of breath, syncope, vomiting or weakness Treatments prior to arrival: none Review of Systems Const: Denies: fever(s), chills, fatigue, malaise or diaphoresis ENMT: Denies: throat pain, ear or mastoid pain, nasal discharge or nasal congestion Card: Denies: chest pain, palpitations or syncope Resp: Denies: dyspnea GI: Denies: abdominal pain, nausea or vomiting : Denies: flank pain, difficulty voiding, dysuria, urinary frequency or urinary urgency Skin/Breast: Denies: rash Neuro: Denies: headache(s) or confusion PFS ED PFSH: Medical History (Updated 08/23/22 @ 20:50 by Wesley Uriostegui MD) Alzheimer disease Anxiety Depression Diabetes Generalized epilepsy History of stroke History of tobacco abuse Hypercholesteremia Hypertension Surgical History History of tonsillectomy History of total hysterectomy Social History Smoking and tobacco status: former smoker Quit status (tobacco): has quit using tobacco Year quit tobacco: 2018 2 PACK PER DAY X 58 Alcohol intake: never Physical Exam Const: GENERAL APPEARANCE: cooperative and comfortable ORIENTATION/CONSCIOUSNESS: Yes awake, Yes oriented to person, Yes oriented to place and Yes oriented to time HENMT: COMMON NORMALS: normocephalic, atraumatic and hearing grossly normal bilaterally HEAD & SCALP: normocephalic and atraumatic Resp: COMMON NORMALS: normal respiratory effort, No retractions, No use of accessory muscles and clear to auscultation bilaterally AUSCULTATION: clear to auscultation bilaterally Cardio: COMMON NORMALS: regular rate, regular rhythm and No murmurs present (Cardio) RATE: regular rate RHYTHM: regular rhythm GI: COMMON NORMALS: Soft to palpation and No hepatosplenomegaly present AUSCULTATION: Yes normoactive bowel sounds PALPATION: Yes Soft to palpation, No Tenderness to palpation present (GI), No Guarding due to palpation present (GI) and Yes No hepatosplenomegaly present Extremity: COMMON NORMALS: normal to inspection, capillary refill normal, no clubbing, cyanosis or edema, no calf tenderness and no pedal edema Neuro: SENSORIUM/ORIENTATION: Yes oriented to person, Yes oriented to place and Yes oriented to time Skin: COMMON NORMALS: no rashes or lesions noted GENERAL SKIN EXAM: no rashes or lesions noted Course Vital Signs: Vital signs: Vital Signs Temperature 98.4 F 08/24/22 00:00 Pulse Rate 89 08/24/22 06:00 Respiratory Rate 18 08/24/22 06:00 Blood Pressure 114/44 08/24/22 06:00 Pulse Oximetry 92 08/24/22 06:00 Oxygen Delivery Me thod 08/24/22 06:00 MDM - General Adult Medical Decision Making Patient presents with confusion Elevated blood sugar serum blood sugar in back is over thousand and anion gap 28 ketones blood gas ordered. Care signed out to Dr. Pack at change of shift. See final notes for diagnosis and disposition. Patient presents here in DKA she is started on insulin drip here did speak to h ospitalist will admit to the ICU at this time. She has been stable while here Medical Records I reviewed the patient's medical records. Lab Data I reviewed the patient's lab results. 08/23/22 13:30 08/23/22 04:[address] 08/23/22 16:05 IMPRESSION: 1. Negative for intracranial hemorrhage or mass effect. 2. Large amount of diffuse white matter disease likely reflecting chronic microvascular ischemic changes. 3. Bilateral chronic frontal lobe basal ganglia region lacunar type infarcts. Chest X-Ray 08/23/22 16:07 IMPRESSION: No acute findings. Laboratory Results WBC 13.7 10^3/uL (4.0-10.0) H 08/23/22 13:30 RBC 4.52 10^6/uL (4.1-5.3) 08/23/22 13:30 Hgb 13.4 g/dL (11.5-15.3) 08/23/22 13:30 Hct 43.7 % (37.0-47.0) 08/23/22 13:30 MCV 96.7 fl (81-99) 08/23/22 13:30 MCH 29.6 pg (28.0-34.0) 08/23/22 13:30 MCHC 30.7 g/dL (30.0-36.0) 08/23/22 13:30 RDW 12.6 % (12.1-15.1) 08/23/22 13:30 Plt Count 498 10^3/cmm (130-400) H 08/23/22 13:30 MPV 10.2 fL (7.4-10.4) 08/23/22 13:30 Neut % (Auto) 92.9 % 08/23/22 13:30 Lymph % (Auto) 3.1 % 08/23/22 13:30 [place] % (Auto) 3.4 % 08/23/22 13:30 Eos % (Auto) 0.0 % 08/23/22 13:30 Baso % (Auto) 0.1 % 08/23/22 13:30 Neut # (Auto) 12.73 10^3/uL (1.8-7.7) H 08/23/22 13:30 Lymph # (Auto) 0.4 10^3/uL (0.8-4.8) L 08/23/22 13:30 [place] # (Auto) 0.5 10^3/uL (0.2-0.9) 08/23/22 13:30 Eos # (Auto) 0.0 10^3/uL (0.0-0.8) 08/23/22 13:30 Baso # (Auto) 0.0 10^3/uL (0.0-0.1) 08/23/22 13:30 Nucleated RBC % (auto) 0 % 08/23/22 13:30 Nucleated RBCs # 0.0 /100WBC 08/23/22 13:30 Sodium 128 mmol/L (136-145) L 08/23/22 17:38 Potassium 5.2 mmol/L (3.5-5.1) H 08/23/22 17:38 Chloride 83 mmol/L (98-107) L 08/23/22 17:38 Carbon Dioxide 22 mmol/L (22-29) 08/23/22 17:38 Anion Gap 28.2 (5-19) H 08/23/22 17:38 BUN 43 mg/dL (8-23) H 08/23/22 17:38 Creatinine 1.3 mg/dL (0.5-0.9) H 08/23/22 17:38 GFR Calculation Not Reportable 08/23/22 17:38 Glucose 1072 mg/dL (65-115) H* 08/23/22 17:38 Estimat Average Glucose 384 08/23/22 13:30 Hemoglobin A1c 15.0 % (4.0-6.0) H 08/23/22 13:30 Calculated Osmolality 331 mOsm/kg (285-295) H 08/23/22 17:38 Lactic Acid 1.7 mmol/L (0.5-2.2) 08/23/22 15:30 Calcium 10.8 mg/dL (8.5-10.5) H 08/23/22 17:38 Total Bilirubin 0.2 mg/dL (0.15-1.2) 08/23/22 17:38 AST 7 U/L (0-32) 08/23/22 17:38 ALT 17 U/L (0-33) 08/23/22 17:38 Alkaline Phosphatase 109 U/L (35-105) H 08/23/22 17:38 Total Protein 6.9 g/dL (6.6-8.7) 08/23/22 17:38 Albumin 3.8 g/dL (3.5-5.2) 08/23/22 17:38 Globulin 3.1 g/dL (1.3-4.6) 08/23/22 17:38 Vitamin B12 2000 pg/mL (232-1245) H 08/23/22 17:38 Urine Color Straw (Yellow) 08/23/22 12:42 Urine Appearance Clear (CLEAR) 08/23/22 12:42 Urine pH 5 (5-7) 08/23/22 12:42 Ur Specific [place] 1.012 (1.005-1.030) 08/23/22 12:42 Urine Protein Neg (Negative) 08/23/22 12:42 Urine Glucose (UA) 4+ (Normal) H 08/23/22 12:42 Urine Ketones 1+ (Negative) H 08/23/22 12:42 Urine Blood Neg (Negative) 08/23/22 12:42 Urine Nitrate Negative (Negative) 08/23/22 12:42 Urine Bilirubin Neg (Negative) 08/23/22 12:42 Urine Urobilinogen Neg mg/dL (Negative) 08/23/22 12:42 Ur Leukocyte Esterase Negative (Negative) 08/23/22 12:42 Serum Ketones Positive (Negative) H 08/23/22 15:30 Discharge Plan Discharge Patient Disposition: Admitted As Inpatient Admit Provider: Wesley Uriostegui Clinical Impression: DKA (diabetic ketoacidosis) Condition: Stable Coding Level of Care Code ED Industrial Electrician Journeyman for Chg Fwd Exam Detailed Documented by User: Daniel Pack MD 08/23/22 19:25 HPI - General Adult General: Chief complaint: Altered Mental Status Stated complaint: trouble walking/weak Time Seen by Provider: 08/23/22 15:15 PFSH ED PFSH: Medical History (Updated 08/23/22 @ 20:50 by Wesley Uriostegui MD) Alzheimer disease Anxiety Depression Diabetes Generalized epilepsy History of stroke History of tobacco abuse Hypercholesteremia Hypertension Surgical History History of tonsillectomy History of total hysterectomy Social History Smoking and tobacco status: former smoker Quit status (tobacco): has quit using tobacco Year quit tobacco: 2019 2 PACK PER DAY X 58 Alcohol intake: never Course Vital Signs: Vital signs: Vital Signs Temperature 98.4 F 08/24/22 00:00 Pulse Rate 89 08/24/22 06:00 Respiratory Rate 18 08/24/22 06:00 Blood Pressure 114/44 08/24/22 06:00 Pulse Oximetry 92 08/24/22 06:00 Oxygen Delivery Me thod 08/24/22 06:00 MDM - General Adult Medical Decision Making Patient presents here in DKA she is started on insulin drip here did speak to hospitalist will admit to the ICU at this time. She has been stable while here Lab Data 08/23/22 13:30 08/23/22 04:[address] 08/23/22 16:05 IMPRESSION: 1. Negative for intracranial hemorrhage or mass effect. 2. Large amount of diffuse white matter disease likely reflecting chronic microvascular ischemic changes. 3. Bilateral chronic frontal lobe basal ganglia region lacunar type infarcts. Chest X-Ray 08/23/22 16:07 IMPRESSION: No acute findings. Laboratory Results WBC 13.7 10^3/uL (4.0-10.0) H 08/23/22 13:30 RBC 4.52 10^6/uL (4.1-5.3) 08/23/22 13:30 Hgb 13.4 g/dL (11.5-15.3) 08/23/22 13:30 Hct 43.7 % (37.0-47.0) 08/23/22 13:30 MCV 96.7 fl (81-99) 08/23/22 13:30 MCH 29.6 pg (28.0-34.0) 08/23/22 13:30 MCHC 30.7 g/dL (30.0-36.0) 08/23/22 13:30 RDW 12.6 % (12.1-15.1) 08/23/22 13:30 Plt Count 498 10^3/cmm (130-400) H 08/23/22 13:30 MPV 10.2 fL (7.4-10.4) 08/23/22 13:30 Neut % (Auto) 92.9 % 08/23/22 13:30 Lymph % (Auto) 3.1 % 08/23/22 13:30 [place] % (Auto) 3.4 % 08/23/22 13:30 Eos % (Auto) 0.0 % 08/23/22 13:30 Baso % (Auto) 0.1 % 08/23/22 13:30 Neut # (Auto) 12.73 10^3/uL (1.8-7.7) H 08/23/22 13:30 Lymph # (Auto) 0.4 10^3/uL (0.8-4.8) L 08/23/22 13:30 [place] # (Auto) 0.5 10^3/uL (0.2-0.9) 08/23/22 13:30 Eos # (Auto) 0.0 10^3/uL (0.0-0.8) 08/23/22 13:30 Baso # (Auto) 0.0 10^3/uL (0.0-0.1) 08/23/22 13:30 Nucleated RBC % (auto) 0 % 08/23/22 13:30 Nucleated RBCs # 0.0 /100WBC 08/23/22 13:30 Sodium 128 mmol/L (136-145) L 08/23/22 17:38 Potassium 5.2 mmol/L (3.5-5.1) H 08/23/22 17:38 Chloride 83 mmol/L (98-107) L 08/23/22 17:38 Carbon Dioxide 22 mmol/L (22-29) 08/23/22 17:38 Anion Gap 28.2 (5-19) H 08/23/22 17:38 BUN 43 mg/dL (8-23) H 08/23/22 17:38 Creatinine 1.3 mg/dL (0.5-0.9) H 08/23/22 17:38 GFR Calculation Not Reportable 08/23/22 17:38 Glucose 1072 mg/dL (65-115) H* 08/23/22 17:38 Estimat Average Glucose 384 08/23/22 13:30 Hemoglobin A1c 15.0 % (4.0-6.0) H 08/23/22 13:30 Calculated Osmolality 331 mOsm/kg (285-295) H 08/23/22 17:38 Lactic Acid 1.7 mmol/L (0.5-2.2) 08/23/22 15:30 Calcium 10.8 mg/dL (8.5-10.5) H 08/23/22 17:38 Total Bilirubin 0.2 mg/dL (0.15-1.2) 08/23/22 17:38 AST 7 U/L (0-32) 08/23/22 17:38 ALT 17 U/L (0-33) 08/23/22 17:38 Alkaline Phosphatase 109 U/L (35-105) H 08/23/22 17:38 Total Protein 6.9 g/dL (6.6-8.7) 08/23/22 17:38 Albumin 3.8 g/dL (3.5-5.2) 08/23/22 17:38 Globulin 3.1 g/dL (1.3-4.6) 08/23/22 17:38 Vitamin B12 2000 pg/mL (232-1245) H 08/23/22 17:38 Urine Color Straw (Yellow) 08/23/22 12:42 Urine Appearance Clear (CLEAR) 08/23/22 12:42 Urine pH 5 (5-7) 08/23/22 12:42 Ur Specific [place] 1.012 (1.005-1.030) 08/23/22 12:42 Urine Protein Neg (Negative) 08/23/22 12:42 Urine Glucose (UA) 4+ (Normal) H 08/23/22 12:42 Urine Ketones 1+ (Negative) H 08/23/22 12:42 Urine Blood Neg (Negative) 08/23/22 12:42 Urine Nitrate Negative (Negative) 08/23/22 12:42 Urine Bilirubin Neg (Negative) 08/23/22 12:42 Urine Urobilinogen Neg mg/dL (Negative) 08/23/22 12:42 Ur Leukocyte Esterase Negative (Negative) 08/23/22 12:42 Serum Ketones Positive (Negative) H 08/23/22 15:30 Critical Care Time Critical Care Time: Critical Care Time: Yes Total Critical Care Time: 45 Attestation: The high probability of a clinically significant, sudden or life threatening deterioration of the patient's endocrine system(s) required my full and direct attention, intervention and personal management. The critical care time is as shown. This time is in addition to time spent performing any reported procedures but includes the following: [x] Data and vital sign review and interpretation [x] Patient assessment, examination and intervention [x] Documentation [x] Medication orders and management Discharge Plan Discharge Patient Disposition: Admitted As Inpatient Admit Provider: Wesley Uriostegui Clinical Impression: DKA (diabetic ketoacidosis) Condition: Stable Coding Level of Care Code ED Industrial Electrician Journeyman for Chg Fwd Exam Detailed
[2022-08-23 18:11] LABS: Alanine Aminotransferase 17 U/L (0-33); Albumin Level 3.8 g/dL (3.5-5.2); Alkaline Phosphatase 109 U/L (35-105); Anion Gap 28.2 (5-19); Aspartate Amino Transferase 7 U/L (0-32); Blood Urea Nitrogen 43 mg/dL (8-23); Calcium 10.8 mg/dL (8.5-10.5); Carbon Dioxide 22 mmol/L (22-29); Chloride 83 mmol/L (98-107); Globulin 3.1 g/dL (1.3-4.6); Potassium 5.2 mmol/L (3.5-5.1); Sodium 128 mmol/L (136-145); Total Bilirubin 0.2 mg/dL (0.15-1.2); Total Protein 6.9 g/dL (6.6-8.7)
[2022-08-23 18:21] LABS: Osmolality Calculated 331 mOsm/kg (285-295)
[2022-08-23 18:24] LABS: Glucose 1072 mg/dL (65-115)
[2022-08-23 18:39] LABS: Ketone (Acetest) Serum Positive (Negative)
[2022-08-23 18:50] LABS: Lactic Sepsis W/Reflex 1.7 mmol/L (0.5-2.2)
[2022-08-23] MEDS: insulin regular-human 250 UNIT in sodium chloride 0.9% 250 ML 30.3 UNIT IV (19:09)
--- NOTE | 2022-08-23 19:22 | PM.HP ---
Providers/Chief Complaint Primary Care Provider: Coco Flores MD Chief Complaint: trouble walking/weak History of Present Illness Maria M Klein is a 77 year old female with History of dementia, type 2 diabetes, does not take any insulin, on oral antihyperglycemic agents, lives alone presented with chief complaint of worsening confusion. As per the family members she forgot to take her medications, she has been experiencing diarrhea on and off, no active emesis, fever, chest pain, shortness of breath. In the ER she has been diagnosed with DKA, patient wanted to leave A however family has convinced her to stay. Chest x-ray unremarkable Head CT unremarkable as well head CT consistent with age-related changes Review of Systems Const: Denies: fever(s) Eyes: Denies: change in vision ENMT: Denies: throat pain Card: Denies: chest pain Resp: Denies: dyspnea GI: Denies: abdominal pain : Denies: flank pain Musc: Denies: neck pain Skin/Breast: Denies: rash or skin pain Neuro: Denies: headache(s) Psych: Denies: anxiety Endo: Denies: polyuria Finn/Lymph: Denies: easy bruising All/Imm: Denies: urticaria Medications/Allergies Home Medications Medication Instructions Recorded Confirmed Last Taken Type aspirin 81 mg tablet,delayed 81 mg PO QAM 01/24/20 08/23/22 08/23/22 History release (Adult Aspirin Regimen) Ventolin HFA 90 mcg/actuation 2 puff inhalation Q6H PRN 02/08/21 08/23/22 Unknown Rx aerosol inhaler (albuterol sulfate) shortness of breath or wheezing 30 days #18 grams loratadine 10 mg tablet (Claritin) 10 mg PO DAILY 01/16/22 08/23/22 08/23/22 History blood sugar diagnostic (FreeStyle #100 ea 04/15/22 08/23/22 Unknown Rx Lite Strips) blood-glucose meter (FreeStyle #1 ea 04/15/22 08/23/22 Unknown Rx Lite Meter kit) metformin 500 mg tablet 500 mg PO BID 90 days #180 tabs 04/17/22 08/23/22 08/23/22 Rx citalopram 20 mg tablet 20 mg PO DAILY #30 tabs 05/27/22 08/23/22 08/23/22 Rx galantamine 24 mg 24 hr 24 mg PO QAM #90 caps 05/27/22 08/23/22 08/23/22 Rx capsule,extended release levetiracetam 500 mg 500 mg PO DAILY #90 tabs 05/27/22 08/23/22 08/23/22 Rx tablet,extended release 24 hr (Keppra XR) sitagliptin phosphate 100 mg tablet 100 mg PO DAILY #30 tabs 06/19/22 08/23/22 08/23/22 Rx tiotropium bromide 18 mcg capsule 1 cap inhalation DAILY #30 caps 06/19/22 08/23/22 08/23/22 Rx with inhalation device (Spiriva with HandiHaler) clopidogrel 75 mg tablet 75 mg PO QAM 90 days #90 tabs 06/21/22 08/23/22 08/23/22 Rx lisinopril 20 mg tablet 20 mg PO QAM 90 days #90 tabs 07/16/22 08/23/22 08/23/22 Rx alprazolam 0.5 mg tablet 0.5 mg PO BID PRN Anxiety 08/23/22 08/23/22 Unknown History amlodipine 2.5 mg tablet 2.5 mg PO BID 08/23/22 08/23/22 08/23/22 History atorvastatin 20 mg tablet 20 mg PO QPM 08/23/22 08/23/22 08/22/22 History glipizide 5 mg tablet 5 mg PO BID 08/23/22 08/23/22 08/23/22 History mirtazapine 30 mg tablet 30 mg PO QPM 08/23/22 08/23/22 08/22/22 History itqeaiqj-lwc-zrbac ac 400 1 tab PO DAILY 08/23/22 08/23/22 08/23/22 History mcg-calcium carb 500 mg-vit K1 20 mcg tablet (Women's 50 Plus Daily Formula) quetiapine 25 mg tablet 25 mg PO BID 08/23/22 08/23/22 08/23/22 History Allergies Allergy/AdvReac Type Severity Reaction Status Date / Time No Known Allergies Allergy Verified 08/23/22 16:39 PFSH Acute PFSH: Medical History (Updated 08/23/22 @ 20:50 by Wesley Uriostegui MD) Alzheimer disease Anxiety Depression Diabetes Generalized epilepsy History of stroke History of tobacco abuse Hypercholesteremia Hypertension Surgical History History of tonsillectomy History of total hysterectomy Social History Smoking and tobacco status: former smoker Quit status (tobacco): has quit using tobacco Year quit tobacco: 2019 2 PACK PER DAY X 58 Alcohol intake: never Vitals/I&O/Wt Last Vital Signs Temp 98.4 F 08/23/22 14:45 Pulse 109 H 08/23/22 14:45 Resp 17 08/23/22 14:45 BP 104/58 08/23/22 18:00 Pulse Ox 98 08/23/22 18:00 O2 Del Method 08/23/22 14:45 Weight last 48 hrs Weight 53.977 kg Physical Exam Narrative: Patient clinically looks dehydrated Abdomen soft Awake and alert Currently on room air Sinus tachycardia Clinically looks dehydrated Abdomen soft nontender no active signs of peritonitis S1, S2 Awake and alert however agitated She is wanting to leave family at the bedside Verbally redirectable GCS 15 Data 08/23/22 13:30 08/23/22 17:38 A&P Assessment and plan (1) DKA (diabetic ketoacidosis): (2) Anxiety: (3) Diabetes: Qualifiers: Diabetes mellitus type: type 2 Diabetes mellitus intermediate project manager insulin use: without usp use Diabetes mellitus complication status: with hyperglycemia Qualified Code(s): E11.65 - Type 2 diabetes mellitus with hyperglycemia (4) Chronic obstructive pulmonary disease: (5) Alzheimer's disease: (6) Generalized epilepsy: Plan DKA Metabolic acidosis Secondary to acute illness MIGUEL secondary to dehydration Pseudohyponatremia On oral antihyperglycemic agents at home has never used insulin Start DKA protocol Normal saline with 40 mg potassium No need of bicarb drip Admit to ICU Start insulin drip Check A1c level Patient forgot taking insulin that most likely is the cause of DKA No signs of UTI Hemodynamically stable History of dementia secondary to Alzheimer's, patient wanted to leave AMA from the ER however family convinced her to stay, she is currently on room air hemodynamically stable Continue IV fluids for dehydration Full code N.p.o. Patient lives alone, has history epilepsy, she has been continued on Keppra as per Dr. Lance Attestations Medical Necessity Statement*: More than 2 midnights anticipated Time Spent in Patient Care: 30 Coding Level of Care Code Acute Code for Chg Fwd Diagnoses DKA (diabetic ketoacidosis) E11.10 Anxiety F41.9 Diabetes E11.65 Diabetes mellitus type: type 2 Diabetes mellitus intermediate project manager insulin use: without usp use Diabetes mellitus complication status: with hyperglycemia Chronic obstructive pulmonary disease J44.9 Alzheimer's disease G30.9; F02.80 Generalized epilepsy G40.309
[2022-08-23] MEDS: sodium chloride 0.9% 1,000 ML 999 ML IV (20:31)
[2022-08-23 21:46] LABS: Glucose Point of Care > 600 mg/dL (70-110)
[2022-08-23] MEDS: heparin 5,000 unit/mL INJ 1 mL 5000 UNIT SUBCUT (22:38)
[2022-08-23] MEDS: sodium chlor 0.9% + KCl 20 mEq 20 MEQ/1,000 ML BAG 100 MEQ IV (22:45)
[2022-08-23] MEDS: pneumococcal (23 valent) SDV 0.5 mL IM (22:45)
[2022-08-23 22:54] LABS: Glucose 493 mg/dL (65-115)
[2022-08-23 23:03] LABS: Estmated Average Glucose 384
[2022-08-23] MEDS: quetiapine 25 mg Tablet PO (23:15)
[2022-08-24] VITALS (30 sets, daily range): BP systolic 82–168; BP diastolic 44–100; PULSE 72–117; RESP 15–38; TEMP 36.5–37; O2SAT 91–98
[2022-08-24 01:07] LABS: Glucose Point of Care > 600 mg/dL (70-110)
[2022-08-24 01:07] LABS: Glucose Point of Care 267 mg/dL (70-110)
[2022-08-24 02:37] LABS: Basophils % 0.2 %; Eosinophils % 0.2 %; Hematocrit 35.5 % (37.0-47.0); Hemoglobin 11.5 g/dL (11.5-15.3); Lymphocytes # 1.5 10^3/uL (0.8-4.8); Lymphocytes % 11.7 %; Mean Corpuscular HGB Conc 32.4 g/dL (30.0-36.0); Mean Corpuscular Hemoglobin 28.8 pg (28.0-34.0); Mean Platelet Volume 9.4 fL (7.4-10.4); Monocytes % 8.2 %; Neutrophils # 10.03 10^3/uL (1.8-7.7); Neutrophils % 79.2 %; Nucleated Red Blood Cells % 0 %; Platelet Count 377 10^3/cmm (130-400); Red Blood Count 3.99 10^6/uL (4.1-5.3); Red Cell Distribution Width 11.9 % (12.1-15.1); White Blood Count 12.7 10^3/uL (4.0-10.0)
[2022-08-24 03:00] LABS: Anion Gap 15.7 (5-19); Blood Urea Nitrogen 39 mg/dL (8-23); C Reactive Protein 4.4 mg/L (0.0-4.9); Calcium 9.8 mg/dL (8.5-10.5); Carbon Dioxide 26 mmol/L (22-29); Chloride 96 mmol/L (98-107); Glucose 150 mg/dL (65-115); Magnesium 2.2 mg/dL (1.7-2.3); Osmolality Calculated 290 mOsm/kg (285-295); Potassium 3.7 mmol/L (3.5-5.1); Sodium 134 mmol/L (136-145)
[2022-08-24] MEDS: potassium chloride ER 20 mEq Tablet 40 MEQ PO (03:49)
[2022-08-24] MEDS: insulin glargine 100 units/1 mL 20 UNIT SUBCUT (03:51)
[2022-08-24 03:59] LABS: Vitamin B12 2000 pg/mL (232-1245)
[2022-08-24 04:01] LABS: Glucose Point of Care 164 mg/dL (70-110)
[2022-08-24 04:01] LABS: Glucose Point of Care 118 mg/dL (70-110)
[2022-08-24 04:01] LABS: Glucose Point of Care 209 mg/dL (70-110)
--- NOTE | 2022-08-24 04:02 | PC.NURSE ---
Blood glucose 118, Potassium 3.7, Anion gap 15.7, Hgb A1c 15.0. Orders given to d/c insulin drip, d/c iv fluids, give 40meq Potassium PO, give 20 units lantus SQ now and change accu checks to ac & hs with moderate sliding scale. Start patient on consistent carb diet and allow patient to eat. Updated patient and daughter about plan of care, insulin drip, iv fluids dc'd, 20 units lantus given sq, and 40meq given po. Patient sitting in bed eating a chocolate pudding at present time.
[2022-08-24] MEDS: lisinopril 20 mg Tablet PO (06:14)
[2022-08-24] MEDS: aspirin 81 mg EC Tablet PO (06:14)
[2022-08-24] MEDS: clopidogrel 75 mg Tablet PO (06:14)
--- NOTE | 2022-08-24 06:52 | PC.NURSE ---
Assisted to BSC and back to bed. Oral care done.
[2022-08-24 07:09] LABS: Glucose Point of Care 199 mg/dL (70-110)
[2022-08-24] MEDS: levETIRAcetam 500 mg Tablet PO (08:14)
[2022-08-24] MEDS: quetiapine 25 mg Tablet PO ×2 (08:14→17:46)
[2022-08-24] MEDS: insulin lispro 100 unit/1 mL SUBCUT ×4 (08:15→21:01)
--- NOTE | 2022-08-24 09:03 | PC.NURSE ---
pt noted eating am breakfast with some aspiration noted at this time....caution while eating
[2022-08-24 09:54] LABS: Anion Gap 15.6 (5-19); Blood Urea Nitrogen 39 mg/dL (8-23); Calcium 9.4 mg/dL (8.5-10.5); Carbon Dioxide 25 mmol/L (22-29); Chloride 95 mmol/L (98-107); Glucose 312 mg/dL (65-115); Osmolality Calculated 293 mOsm/kg (285-295); Potassium 4.6 mmol/L (3.5-5.1); Sodium 131 mmol/L (136-145)
[2022-08-24] MEDS: heparin 5,000 unit/mL INJ 1 mL 5000 UNIT SUBCUT ×2 (10:01→21:01)
[2022-08-24] MEDS: ipratropium-albuterol 3 mL Neb INHALATION (10:33)
--- NOTE | 2022-08-24 11:52 | P.PN_ITS ---
Subjective Subjective: seen this am daughter at bedside anion gap 15 bridged to lantus at 4 am PT pending. daughter states pt been having frequent falls and lives alone at home has bruises on her knees and legs daughter interested in longterm placement Vitals/I&O/Wt Last Vital Signs Temp 97.7 F 08/24/22 07:00 Pulse 95 08/24/22 10:36 Resp 16 08/24/22 10:35 BP 168/71 08/24/22 10:00 Pulse Ox 92 08/24/22 10:35 O2 Del Method 08/24/22 10:35 08/23/22 08/24/22 08/24/22 22:59 06:59 14:59 Intake Total 165.298 / 735.241 9523.002 / 2500.002 Balance 165.298 / 698.060 5256.002 / 2500.002 Weight last 48 hrs Weight 56.971 kg Weight 53.977 kg Physical Exam Narrative: Abdomen soft Awake and alert Currently on room air RRR Abdomen soft nontender no active signs of peritonitis S1, S2 Awake and alert however agitated Verbally redirectable GCS 15 Wants to leave the hospital Slightly agitated. 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 insulin use: without nursing home use Diabetes mellitus complication status: with hyperglycemia Qualified Code(s): E11.65 - Type 2 diabetes mellitus with hyperglycemia (4) Chronic obstructive pulmonary disease: (5) Alzheimer's disease: (6) Generalized epilepsy: Plan DKA - resolved Metabolic acidosis Secondary to acute illness MIGUEL secondary to dehydration Pseudohyponatremia On oral antihyperglycemic agents at home has never used insulin Start DKA protocol Normal saline with 40 mg potassium No need of bicarb drip Admit to ICU Insulin drip turned off early am on lantus 20 daily medium dose ssi aic 15.1 on metformin and glipizide at home Frequent falls at home lives alone check PT/OT Hemodynamically stable History of dementia secondary to Alzheimer's, patient wanted to leave AMA from the ER however family convinced her to stay, she is currently on room air hemodynamically stable Continue IV fluids for dehydration Full code Carb consistent diet Daughter interested in longterm placement. Case management aware. Patient lives alone, has history epilepsy, she has been continued on Keppra as per Dr. Lance Attestations Medical Necessity Statement*: More than 2 midnights anticipated Coding Level of Care Code Acute Code for Chg Fwd Diagnoses DKA (diabetic ketoacidosis) E11.10 Anxiety F41.9 Diabetes E11.65 Diabetes mellitus type: type 2 Diabetes mellitus equipment operator intermodal yard insulin use: without equipment operator intermodal yard use Diabetes mellitus complication status: with hyperglycemia Chronic obstructive pulmonary disease J44.9 Alzheimer's disease G30.9; F02.80 Generalized epilepsy G40.309
[2022-08-24 12:19] LABS: Glucose Point of Care 482 mg/dL (70-110)
[2022-08-24] MEDS: loratadine 10 mg Tablet PO (12:48)
[2022-08-24] MEDS: sodium chloride 0.9% 1,000 ML 100 ML IV (12:55)
[2022-08-24 15:12] LABS: Glucose Point of Care 530 mg/dL (70-110)
[2022-08-24] MEDS: insulin lispro 100 unit/1 mL 10 UNIT SUBCUT (16:01)
[2022-08-24 18:10] LABS: Glucose Point of Care 447 mg/dL (70-110)
[2022-08-24 18:10] LABS: Glucose Point of Care 447 mg/dL (70-110)
--- NOTE | 2022-08-24 18:53 | PC.NURSE ---
Patient found in room with gown off and going through drawers. Patient redirected to bed, bed alarm turned on, education provided on use of call light. Patient reports things get fuzzy at night time.
[2022-08-24 20:29] LABS: Glucose Point of Care 392 mg/dL (70-110)
[2022-08-25] VITALS (23 sets, daily range): BP systolic 95–163; BP diastolic 53–93; PULSE 71–109; RESP 16–26; TEMP 36.4–37.1; O2SAT 90–99
[2022-08-25] MEDS: sodium chloride 0.9% 1,000 ML 100 ML IV (03:32)
[2022-08-25 04:06] LABS: Basophils % 0.2 %; Eosinophils % 0.4 %; Hematocrit 33.3 % (37.0-47.0); Hemoglobin 10.7 g/dL (11.5-15.3); Lymphocytes # 1.4 10^3/uL (0.8-4.8); Lymphocytes % 15.4 %; Mean Corpuscular HGB Conc 32.1 g/dL (30.0-36.0); Mean Corpuscular Hemoglobin 29.3 pg (28.0-34.0); Mean Corpuscular Volume 91.2 fl (81-99); Mean Platelet Volume 9.8 fL (7.4-10.4); Monocytes # 0.6 10^3/uL (0.2-0.9); Monocytes % 6.4 %; Neutrophils # 7.08 10^3/uL (1.8-7.7); Neutrophils % 77.2 %; Nucleated Red Blood Cells % 0 %; Platelet Count 310 10^3/cmm (130-400); Red Blood Count 3.65 10^6/uL (4.1-5.3); Red Cell Distribution Width 11.9 % (12.1-15.1); White Blood Count 9.2 10^3/uL (4.0-10.0)
[2022-08-25 04:19] LABS: Blood Urea Nitrogen 17 mg/dL (8-23); Carbon Dioxide 22 mmol/L (22-29); Chloride 96 mmol/L (98-107); Glucose 306 mg/dL (65-115); Osmolality Calculated 277 mOsm/kg (285-295); Sodium 127 mmol/L (136-145)
[2022-08-25 04:59] LABS: Glucose Point of Care 523 mg/dL (70-110)
[2022-08-25 04:59] LABS: Glucose Point of Care 477 mg/dL (70-110)
[2022-08-25] MEDS: lisinopril 20 mg Tablet PO (05:56)
[2022-08-25] MEDS: clopidogrel 75 mg Tablet PO (05:56)
[2022-08-25] MEDS: aspirin 81 mg EC Tablet PO (05:56)
[2022-08-25] MEDS: ipratropium-albuterol 3 mL Neb INHALATION (06:08)
[2022-08-25 08:21] LABS: Glucose Point of Care 333 mg/dL (70-110)
[2022-08-25] MEDS: quetiapine 25 mg Tablet PO ×2 (08:39→18:44)
[2022-08-25] MEDS: insulin lispro 100 unit/1 mL SUBCUT ×4 (08:39→20:37)
[2022-08-25] MEDS: levETIRAcetam 500 mg Tablet PO (08:39)
[2022-08-25] MEDS: loratadine 10 mg Tablet PO (08:39)
[2022-08-25] MEDS: heparin 5,000 unit/mL INJ 1 mL 5000 UNIT SUBCUT ×2 (08:44→21:02)
--- NOTE | 2022-08-25 08:52 | PM.PN ---
Subjective Subjective: Alert awake oriented this morning. Daughter at bedside. Exhibits impulsive behavior, tries to get out of bed unassisted, moves over to the bedside commode, tries to reach for objects in the room. Medications: Reviewed: Yes Vitals/I&O/Wt Last Vital Signs Temp 98.1 F 08/25/22 04:00 Pulse 91 08/25/22 06:08 Resp 16 08/25/22 06:08 BP 122/57 08/25/22 06:00 Pulse Ox 95 08/25/22 06:08 O2 Del Method 08/25/22 06:08 08/24/22 08/25/22 08/25/22 22:59 06:59 14:59 Intake Total 1300 / 4600.002 60 / 4660.002 Output Total 1275 / 1275 1250 / 2525 Balance 25 / 3325.002 -1190 / 2135.002 Weight last 48 hrs Weight 56.7 kg Weight 56.971 kg Weight 53.977 kg Physical Exam Narrative: General: No acute distress, AO x3, however exam behavior, forgetful. HEENT: PERRLA, pupils bilaterally equal and reactive, pallors not present Chest: Normal vesicular breath sounds, no added sounds, equal good air entry bilaterally CVS: S1-S2 regular, no murmurs, no tachycardia, no gallops, no rubs Abdomen: Soft, nontender, no organomegaly, bowel sounds present Neuro: No focal deficits, no facial deformity, AO x3, power 5/5 in all limbs Data 08/25/22 02:45 08/25/22 02:45 A&P Assessment and plan (1) DKA (diabetic ketoacidosis): (2) Anxiety: (3) Diabetes: Qualifiers: Diabetes mellitus complication status: with hyperglycemia Diabetes mellitus terminal gauger supervisor insulin use: without terminal gauger supervisor use Diabetes mellitus type: type 2 Qualified Code(s): E11.65 - Type 2 diabetes mellitus with hyperglycemia (4) Chronic obstructive pulmonary disease: (5) Alzheimer's disease: (6) Generalized epilepsy: Plan DKA - resolved Now resolved after being on insulin drip. Currently she is on high-dose insulin sliding scale. Over the last 24 hours total insulin requirements have been at 48 units. We will start 15 units of Lantus and continue the sliding scale. Will likely need to titrate Lantus further depending on how she does after the 15 units dose today. HbA1c at 15. Hyponatremia Attributed likely to dehydration. Currently appears to be euvolemic. Will discontinue IV fluids. Free fluid restriction to 1800 cc/h. Currently patient is drinking 3 to 4 L of fluid per day. Frequent falls at home Likely is related to advancing dementia. PT OT evaluation ordered. Per review of purchasing analyst note, there was concern for possible choking with drinking Glucerna. We will additionally obtain a speech evaluation. Full code Daughter interested in prison placement to best ensure patient's safety as she lives alone and has had multiple falls and has a history of seizure.. Awaiting therapy assessments for appropriate disposition planning. history epilepsy, continue keppra Hold lisinopril as hypotensive overnight with SBP 90s. Will resume amlodipine if needed Attestations Medical Necessity Statement*: Starting Lantus today physical therapy and speech therapy assessments today. Transfer out of ICU to floor. Pending appropriate disposition planning. Coding Level of Care Code Acute Code for [facility] Fwd Diagnoses DKA (diabetic ketoacidosis) E11.10 Anxiety F41.9 Diabetes E11.65 Diabetes mellitus complication status: with hyperglycemia Diabetes mellitus usp insulin use: without terminal gauger supervisor use Diabetes mellitus type: type 2 Chronic obstructive pulmonary disease J44.9 Alzheimer's disease G30.9; F02.80 Generalized epilepsy G40.309
[2022-08-25] MEDS: insulin glargine 100 units/1 mL 15 UNIT SUBCUT (10:59)
[2022-08-25 12:19] LABS: Glucose Point of Care 342 mg/dL (70-110)
--- NOTE | 2022-08-25 16:25 | PC.NURSE ---
[facility] called to give report. Report given to DANIELLA Davey. [place] thickened liquids, impulsivity, hgih fall risk, pt needs to sit up in chair for meals and discharge plans discussed.
--- NOTE | 2022-08-25 16:35 | PC.NURSE ---
Pt changed to her own pajamas. Then transferred to [facility] room 268. Family gathered belongings and transported them to room. Pt then oriented to room, call light. Pt in bed, exit alarm activated. Further erbal report given to DANIELLA Ward and DANIELLA Louise. High fall risk, needs someone with her for transfers, etc. Pt eats too fast, needs to sit up in chair for meals, [place] thickened liquids ordered . Pt on fluid restriction of 1800ml [id number]. She has had 1000 intake thus far this shift, 800ml remaining.
[2022-08-25] MEDS: amlodipine 5 mg Tablet 2.5 MG PO (18:43)
[2022-08-25 18:55] LABS: Glucose Point of Care 409 mg/dL (70-110)
[2022-08-25 20:11] LABS: Glucose Point of Care 295 mg/dL (70-110)
[2022-08-26] VITALS (9 sets, daily range): BP systolic 110–137; BP diastolic 65–76; PULSE 73–99; RESP 16–20; TEMP 36.5–36.9; O2SAT 94–96
[2022-08-26 04:58] LABS: Basophils % 0.6 %; Eosinophils # 0.1 10^3/uL (0.0-0.8); Eosinophils % 2.8 %; Hematocrit 36.5 % (37.0-47.0); Hemoglobin 11.8 g/dL (11.5-15.3); Lymphocytes # 1.2 10^3/uL (0.8-4.8); Lymphocytes % 22.9 %; Mean Corpuscular HGB Conc 32.3 g/dL (30.0-36.0); Mean Corpuscular Hemoglobin 29.4 pg (28.0-34.0); Mean Corpuscular Volume 90.8 fl (81-99); Mean Platelet Volume 9.4 fL (7.4-10.4); Monocytes # 0.5 10^3/uL (0.2-0.9); Monocytes % 8.9 %; Neutrophils # 3.25 10^3/uL (1.8-7.7); Neutrophils % 64.2 %; Nucleated Red Blood Cells % 0 %; Platelet Count 294 10^3/cmm (130-400); Red Blood Count 4.02 10^6/uL (4.1-5.3); Red Cell Distribution Width 12.1 % (12.1-15.1); White Blood Count 5.1 10^3/uL (4.0-10.0)
[2022-08-26] MEDS: clopidogrel 75 mg Tablet PO (05:00)
[2022-08-26] MEDS: aspirin 81 mg EC Tablet PO (05:00)
[2022-08-26 05:25] LABS: Alanine Aminotransferase 19 U/L (0-33); Albumin Level 3.1 g/dL (3.5-5.2); Alkaline Phosphatase 84 U/L (35-105); Anion Gap 11.7 (5-19); Aspartate Amino Transferase 19 U/L (0-32); Blood Urea Nitrogen 8 mg/dL (8-23); Calcium 8.2 mg/dL (8.5-10.5); Carbon Dioxide 24 mmol/L (22-29); Chloride 96 mmol/L (98-107); Globulin 2.7 g/dL (1.3-4.6); Glucose 225 mg/dL (65-115); Osmolality Calculated 271 mOsm/kg (285-295); Potassium 3.7 mmol/L (3.5-5.1); Sodium 128 mmol/L (136-145); Total Bilirubin 0.2 mg/dL (0.15-1.2); Total Protein 5.8 g/dL (6.6-8.7)
[2022-08-26 06:34] LABS: Glucose Point of Care 276 mg/dL (70-110)
[2022-08-26] MEDS: insulin glargine 100 units/1 mL 15 UNIT SUBCUT (08:45)
[2022-08-26] MEDS: levETIRAcetam 500 mg Tablet PO (08:46)
[2022-08-26] MEDS: loratadine 10 mg Tablet PO (08:46)
[2022-08-26] MEDS: amlodipine 5 mg Tablet 2.5 MG PO ×2 (08:46→18:00)
[2022-08-26] MEDS: insulin lispro 100 unit/1 mL SUBCUT ×4 (08:46→21:30)
[2022-08-26] MEDS: quetiapine 25 mg Tablet PO ×2 (08:46→18:00)
[2022-08-26] MEDS: heparin 5,000 unit/mL INJ 1 mL 5000 UNIT SUBCUT ×2 (08:47→21:30)
--- NOTE | 2022-08-26 09:08 | PC.SOCIAL ---
IMM Update pg 2 of IMM updated w/ patient and son in law. Copy provided and Copy dated, initialed, and placed in chart.
[2022-08-26 11:28] LABS: Glucose Point of Care 296 mg/dL (70-110)
--- NOTE | 2022-08-26 12:16 | PM.PN ---
Subjective Subjective: Patient is awake and alert Does not need one-to-one supervision Pleasant and cooperative Awaiting prison placement No overnight events No complaint of chest pain shortness of breath or nausea Vitals/I&O/Wt Last Vital Signs Temp 97.9 F 08/26/22 11:32 Pulse 95 08/26/22 11:32 Resp 18 08/26/22 11:32 BP 110/65 08/26/22 11:32 Pulse Ox 95 08/26/22 11:32 O2 Del Method 08/26/22 11:32 08/25/22 08/26/22 08/26/22 22:59 06:59 14:59 Intake Total 1600 / 2600 0 / 2600 240 / 240 Output Total 300 / 850 Balance 1300 / 1750 0 / 1750 240 / 240 Weight last 48 hrs Weight 59.783 kg Weight 56.7 kg Physical Exam Narrative: Patient is sitting at the bedside Pleasant and cooperative Euvolemic Awake and alert Follow command S1, S2 Abdomen soft No audible stridor or wheezing Doing well on room air No active signs of confusion Data 08/26/22 04:33 08/26/22 04:33 A&P Assessment and plan (1) DKA (diabetic ketoacidosis): (2) Anxiety: (3) Diabetes: Qualifiers: Diabetes mellitus complication status: with hyperglycemia Diabetes mellitus 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 owner operator truck driver insulin use: without intermodal owner operator truck driver use Diabetes mellitus type: type 2 Qualified Code(s): E11.65 - Type 2 diabetes mellitus with hyperglycemia (4) Chronic obstructive pulmonary disease: (5) Alzheimer's disease: (6) Hyponatremia: Plan DKA: Resolved Poorly controlled type 2 diabetes A1c is 15, she will need Lantus and sliding scale disContinue glipizide at 7 discharge She will need outpatient retinal exam and annual podiatry Frequent falls likely related to dementia 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, she has been drinking 3 to 4 L of fluid as per the staff We will monitor sodium for now Hyperglycemia noted, increase the dose of Lantus to 18 units Awaiting placement History of dementia no acute delirium Continue Keppra, quetiapine and galantamine History of seizure continue Keppra Attestations Medical Necessity Statement*: dc tomorrow Coding Level of Care Code 32064 Medical Decision Making Low Complexity Diagnoses DKA (diabetic ketoacidosis) E11.10 Anxiety F41.9 Diabetes E11.65 Diabetes mellitus complication status: with hyperglycemia Diabetes mellitus nursing home insulin use: without intermodal owner operator truck driver use Diabetes mellitus type: type 2 Chronic obstructive pulmonary disease J44.9 Alzheimer's disease G30.9; F02.80 Hyponatremia E87.1 Time Spent (min) 20
[2022-08-26 16:53] LABS: Glucose Point of Care 149 mg/dL (70-110)
--- NOTE | 2022-08-26 18:38 | PC.NURSE ---
patients DPOA does not want patient discharged home as home is reported to be an unsafe environment. Patients daughter would like the physician and social worker health services to have a meeting to be on the same page and determine if there is a way to make LTC placement possible through insurance.
[2022-08-26 21:06] LABS: Glucose Point of Care 199 mg/dL (70-110)
[2022-08-27 04:00] VITALS: BP 138/69; PULSE 90; RESP 117; TEMP 36.5; O2SAT 93
[2022-08-27] MEDS: aspirin 81 mg EC Tablet PO (06:02)
[2022-08-27] MEDS: clopidogrel 75 mg Tablet PO (06:02)
[2022-08-27 06:30] LABS: Glucose Point of Care 245 mg/dL (70-110)
[2022-08-27 06:35] LABS: Blood Urea Nitrogen 10 mg/dL (8-23); Calcium 8.1 mg/dL (8.5-10.5); Carbon Dioxide 22 mmol/L (22-29); Chloride 102 mmol/L (98-107); Glucose 230 mg/dL (65-115); Osmolality Calculated 284 mOsm/kg (285-295); Sodium 134 mmol/L (136-145)
[2022-08-27 06:37] LABS: Anion Gap 14.1 (5-19); Potassium 4.1 mmol/L (3.5-5.1)
[2022-08-27 08:00] VITALS: BP 149/73; PULSE 84; PULSE 99; RESP 16; RESP 18; TEMP 36.4; O2SAT 96
[2022-08-27] MEDS: levETIRAcetam 500 mg Tablet PO (09:12)
[2022-08-27] MEDS: quetiapine 25 mg Tablet PO (09:12)
[2022-08-27] MEDS: amlodipine 5 mg Tablet 2.5 MG PO (09:12)
[2022-08-27] MEDS: loratadine 10 mg Tablet PO (09:12)
[2022-08-27] MEDS: insulin lispro 100 unit/1 mL SUBCUT ×2 (09:13→12:56)
[2022-08-27] MEDS: insulin glargine 100 units/1 mL 18 UNIT SUBCUT (09:13)
[2022-08-27] MEDS: heparin 5,000 unit/mL INJ 1 mL 5000 UNIT SUBCUT (09:14)
--- NOTE | 2022-08-27 10:50 | P.DS_ITS ---
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 senior living use Diabetes mellitus complication status: with hyperglycemia Qualified Code(s): E11.65 - Type 2 diabetes mellitus with hyperglycemia (4) Chronic obstructive pulmonary disease: Status: Acute (5) Alzheimer's disease: Status: Acute (6) Hyponatremia: Status: Acute Reason for Visit Reason for Visit: trouble walking/weak Hospital Course Hospital Course 77-year female who was admitted for management evaluation of DKA, patient was not on insulin before her arrival, hemoglobin A1c around 15, patient has dementia, very poor attention span, after ICU DKA management she was transferred to [facility], where she was put on Lantus 18 to 20 units, she required one-to-one supervision because of her noncompliance however that was taken off, patient did not qualify for jail placement she has been ambulating on her own without any assistance, she does have Alzheimer's related dementia, she might need [facility] psych in future, her daughter would not be able to pay for her jail placement for now, she will be discharged home with home health services, she will get 20 units of Lantus, GFR is not reportable I would not add metformin at this point, Physical Exam Narrative: Pleasant cooperative Awake and alert Nonfocal neuro exam S1, S2 Abdomen soft Doing well on room air Discharge Data Studies Completed and Pending Completed Studies During Hospitalization Category Date Time Status CT head wo con* [id number] Stat Cat Scan 08/23/22 16:05 Completed XR chest 1V portable [id number] Stat Exams 08/23/22 16:07 Completed Radiology Impressions Head CT 08/23/22 16:05 IMPRESSION: 1. Negative for intracranial hemorrhage or mass effect. 2. Large amount of diffuse white matter disease likely reflecting chronic microvascular ischemic changes. 3. Bilateral chronic frontal lobe basal ganglia region lacunar type infarcts. Chest X-Ray 08/23/22 16:07 IMPRESSION: No acute findings. Laboratory Results WBC 5.1 10^3/uL (4.0-10.0) 08/26/22 04:33 RBC 4.02 10^6/uL (4.1-5.3) L 08/26/22 04:33 Hgb 11.8 g/dL (11.5-15.3) 08/26/22 04:33 Hct 36.5 % (37.0-47.0) L 08/26/22 04:33 MCV 90.8 fl (81-99) 08/26/22 04:33 MCH 29.4 pg (28.0-34.0) 08/26/22 04:33 MCHC 32.3 g/dL (30.0-36.0) 08/26/22 04:33 RDW 12.1 % (12.1-15.1) 08/26/22 04:33 Plt Count 294 10^3/cmm (130-400) 08/26/22 04:33 MPV 9.4 fL (7.4-10.4) 08/26/22 04:33 Neut % (Auto) 64.2 % 08/26/22 04:33 Lymph % (Auto) 22.9 % 08/26/22 04:33 [place] % (Auto) 8.9 % 08/26/22 04:33 Eos % (Auto) 2.8 % 08/26/22 04:33 Baso % (Auto) 0.6 % 08/26/22 04:33 Neut # (Auto) 3.25 10^3/uL (1.8-7.7) 08/26/22 04:33 Lymph # (Auto) 1.2 10^3/uL (0.8-4.8) 08/26/22 04:33 [place] # (Auto) 0.5 10^3/uL (0.2-0.9) 08/26/22 04:33 Eos # (Auto) 0.1 10^3/uL (0.0-0.8) 08/26/22 04:33 Baso # (Auto) 0.0 10^3/uL (0.0-0.1) 08/26/22 04:33 Nucleated RBC % (auto) 0 % 08/26/22 04:33 Nucleated RBCs # 0.0 /100WBC 08/26/22 04:33 Sodium 134 mmol/L (136-145) L 08/27/22 05:57 Potassium 4.1 mmol/L (3.5-5.1) 08/27/22 05:57 Chloride 102 mmol/L (98-107) 08/27/22 05:57 Carbon Dioxide 22 mmol/L (22-29) 08/27/22 05:57 Anion Gap 14.1 (5-19) 08/27/22 05:57 BUN 10 mg/dL (8-23) 08/27/22 05:57 Creatinine 0.5 mg/dL (0.5-0.9) 08/27/22 05:57 GFR Calculation Not Reportable 08/27/22 05:57 Glucose 230 mg/dL (65-115) H 08/27/22 05:57 POC Glucose 245 mg/dL (70-110) H 08/27/22 06:22 Estimat Average Glucose 384 08/23/22 13:30 Hemoglobin A1c 15.0 % (4.0-6.0) H 08/23/22 13:30 Calculated Osmolality 284 mOsm/kg (285-295) L 08/27/22 05:57 Lactic Acid 1.7 mmol/L (0.5-2.2) 08/23/22 15:30 Calcium 8.1 mg/dL (8.5-10.5) L 08/27/22 05:57 Magnesium 2.2 mg/dL (1.7-2.3) 08/24/22 02:22 Total Bilirubin 0.2 mg/dL (0.15-1.2) 08/26/22 04:33 AST 19 U/L (0-32) 08/26/22 04:33 ALT 19 U/L (0-33) 08/26/22 04:33 Alkaline Phosphatase 84 U/L (35-105) 08/26/22 04:33 C-Reactive Protein 4.4 mg/L (0.0-4.9) 08/24/22 02:22 Total Protein 5.8 g/dL (6.6-8.7) L 08/26/22 04:33 Albumin 3.1 g/dL (3.5-5.2) L 08/26/22 04:33 Globulin 2.7 g/dL (1.3-4.6) 08/26/22 04:33 Vitamin B12 2000 pg/mL (232-1245) H 08/23/22 17:38 Urine Color Cancelled 08/24/22 00:42 Urine Appearance Cancelled 08/24/22 00:42 Urine pH Cancelled 08/24/22 00:42 Ur Specific [place] Cancelled 08/24/22 00:42 Urine Protein Cancelled 08/24/22 00:42 Urine Glucose (UA) Cancelled 08/24/22 00:42 Urine Ketones Cancelled 08/24/22 00:42 Urine Blood Cancelled 08/24/22 00:42 Urine Nitrate Cancelled 08/24/22 00:42 Urine Bilirubin Cancelled 08/24/22 00:42 Prot Sulfosalicylic Acd Cancelled 08/24/22 00:42 Urine Urobilinogen Cancelled 08/24/22 00:42 Ur Leukocyte Esterase Cancelled 08/24/22 00:42 Serum Ketones Positive (Negative) H 08/23/22 15:30 Vitals Last Vital Signs Temp 97.6 F 08/27/22 08:00 Pulse 84 08/27/22 08:00 Resp 16 08/27/22 08:00 BP 149/73 08/27/22 08:00 Pulse Ox 96 08/27/22 08:00 O2 Del Method 08/27/22 08:00 Discharge Plan Discharge Patient Disposition: Home Condition: Stable Prescriptions: New (DME) lancet-gluc test strip-needles Combo Pack See Rx Instructions .Route Qty: 300 0RF Rx Instructions: As directed insulin glargine [Lantus Solostar U-100 Insulin] 100 unit/mL (3 mL) insulin pen 20 unit SUBCUT QPM Qty: 15 6RF insulin lispro [Humalog U-100 Insulin] 100 unit/mL solution 2 unit SUBCUT AC Qty: 10 5RF Continued aspirin [Adult Aspirin Regimen] 81 mg tablet,delayed release (DR/EC) 81 mg PO QAM levetiracetam [Keppra XR] 500 mg tablet extended release 24 hr 500 mg PO DAILY Qty: 90 3RF Rx Instructions: 340 be Please refill as a 90-day supply with 3 refills galantamine 24 mg capsule,ext rel. pellets 24 hr 24 mg PO QAM Qty: 90 5RF Rx Instructions: administer with breakfast 340B citalopram 20 mg tablet 20 mg PO DAILY Qty: 30 5RF (DME) FreeStyle Lite Strips Strip See Rx Instructions .Route Qty: 100 3RF Rx Instructions: to use once daily in freestyle meter 90 day supply (DME) blood-glucose meter [FreeStyle Lite Meter] Kit See Rx Instructions .Route Qty: 1 0RF Rx Instructions: use once daily to check blood sugar Spiriva with HandiHaler 18 mcg capsule, w/inhalation device 1 cap inhalation DAILY Qty: 30 5RF albuterol sulfate [Ventolin HFA] 90 mcg/actuation HFA aerosol inhaler 2 puff inhalation Q6H PRN (Reason: shortness of breath or wheezing) 30 Days Qty: 18 11RF clopidogrel 75 mg tablet 75 mg PO QAM 90 Days Qty: 90 3RF lisinopril 20 mg tablet 20 mg PO QAM 90 Days Qty: 90 2RF Women's 50 Plus Daily Formula 400 mcg-500 mg calcium-20 mcg Tablet 1 tab PO DAILY quetiapine 25 mg tablet 25 mg PO BID amlodipine 2.5 mg tablet 2.5 mg PO BID alprazolam 0.5 mg tablet 0.5 mg PO BID PRN (Reason: Anxiety) sitagliptin phosphate 100 mg tablet 100 mg PO DAILY Qty: 60 3RF Discontinued metformin 500 mg tablet 500 mg PO BID 90 Days Qty: 180 3RF Claritin 10 mg tablet 10 mg PO DAILY atorvastatin 20 mg tablet 20 mg PO QPM mirtazapine 30 mg tablet 30 mg PO QPM glipizide 5 mg tablet 5 mg PO BID Discharge Orders: Discharge Order (Routine); Ordered 08/27/22 Ordered By: Wesley Uriostegui Referrals: [facility] [place] [facility] ([facility]) [Outside] Coco Flores MD [Primary Care Provider] - 09/04/22 9:30 am Kingston Gonzales MD [Physician] - 2 weeks Discharge Diet: Diabetic Patient Instructions: Opioid Safety Activity Restrictions/Additional Instructions: Low-dose sliding scale Blood sugar is 60-1 10 no insulin needed 111 150 please take 2 units 151 to 200 4 units 201 to 250 6 units 2 51-300 8 units 301-350:: 10 units Discharge Attestations Time Spent in Discharge Care*: less than 30 min Quality Metrics Clinical Quality Measures [ No reported AMI, CVA or VTE this stay] Coding Level of Care Code Acute Code for Chg Fwd Diagnoses DKA (diabetic ketoacidosis) E11.10 Anxiety F41.9 Diabetes E11.65 Diabetes mellitus type: type 2 Diabetes mellitus senior living 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
[2022-08-27 11:32] VITALS: BP 113/72; PULSE 113; RESP 17; TEMP 36.5; O2SAT 95
[2022-08-27 11:49] LABS: Glucose Point of Care 285 mg/dL (70-110)
[2022-08-27] MEDS: ipratropium-albuterol 3 mL Neb INHALATION (11:53)
[2022-08-27 11:56] VITALS: PULSE 92; RESP 16; O2SAT 95
[2022-08-27 16:00] VITALS: BP 113/61; PULSE 83; RESP 16; TEMP 36.5; O2SAT 98
[2022-08-27 17:39] LABS: Glucose Point of Care 176 mg/dL (70-110)
[2022-08-27 18:59] VITALS: BP 113/61; PULSE 83; RESP 16; TEMP 36.5; O2SAT 98
== END 2022-08-27 19:47 | disposition home health service (06) | DRG 638 ==
LOC: ER 19:25 → ICU 19:44 → MEDSURG 08-25 16:33
PROVIDERS: Family Medicine; Internal Medicine; Student in an Organized Health Care Education/Training Program; Admitting Provider Internal Medicine; Emergency Provider Emergency Medicine; PCP Family Medicine; Visit Provider Internal Medicine
DX: E11.10 Type 2 diabetes mellitus with ketoacidosis without coma (principal); E87.1 Hypo-osmolality and hyponatremia; F02.84 Dementia in other diseases classified elsewhere, unspecified severity, with anxiety; N17.9 Acute kidney failure, unspecified; E11.65 Type 2 diabetes mellitus with hyperglycemia; J44.9 Chronic obstructive pulmonary disease, unspecified; G30.9 Alzheimer's disease, unspecified; G40.409 Other generalized epilepsy and epileptic syndromes, not intractable, without status epilepticus; I10 Essential (primary) hypertension; R29.6 Repeated falls; I95.9 Hypotension, unspecified; Z79.84 Long term (current) use of oral hypoglycemic drugs; Z79.82 Long term (current) use of aspirin; Z87.891 Personal history of nicotine dependence; Z86.73 Personal history of transient ischemic attack (TIA), and cerebral infarction without residual deficits; Z79.02 Long term (current) use of antithrombotics/antiplatelets
CPT/HCPCS: 36415; 36416; 70450; 71045; 80048; 80053; 81003; 82009; 82607; 82947; 82962; 83036; 83605; 83735; 85025; 86140; 90471; 90732; 92523; 92526; 92610; 94640; 96365; 96372; 97110; 97116; 97161; 99285; J1644; J1815; J3480; J7030; J7050

== ENCOUNTER 2022-12-23 12:39 | Outpatient (CLI) | payer MEDICARE, SELFPAY ==
--- NOTE | 2022-12-23 13:02 | XRR_ITS ---
PROCEDURE INFORMATION: Exam: XR Lumbosacral Spine Exam date and time: 12/23/2022 1:20 PM Age: 77 years old Clinical indication: Low back pain; Additional info: Worsening lumbar pain / bilateral TECHNIQUE: Imaging protocol: Radiologic exam of the lumbosacral spine. Views: 2 or 3 views. COMPARISON: No relevant prior studies available. FINDINGS: Bones/joints: Multilevel intervertebral disc space narrowing is seen corresponding to severe osteoarthritis No acute fracture. Normal alignment. Soft tissues: Calcified abdominal aorta without aneurysm XR/XR lumbar spine 2-3V* [id number] IMPRESSION: 1. Severe osteoarthritis 2. Otherwise No acute findings.
== END 2022-12-23 12:40 | disposition home or self-care (01) ==
PROVIDERS: PCP Family Medicine; Visit Provider Family Medicine
DX: M51.36 Other intervertebral disc degeneration, lumbar region (principal); M47.816 Spondylosis without myelopathy or radiculopathy, lumbar region
CPT/HCPCS: 72100

== ENCOUNTER 2023-01-10 11:32 | Emergency (ER) | payer MEDICARE, SELFPAY ==
[2023-01-10 11:40] VITALS: BP 133/71; PULSE 117; RESP 16; TEMP 36.3; O2SAT 94; BMI 21.7
--- NOTE | 2023-01-10 11:47 | ED_ITS ---
HPI - Overdose General: Chief Complaint: Overdose Stated Complaint: took too much medication Time Seen by Provider: 01/10/23 11:45 Source: patient Mode of arrival: ambulatory History of Present Illness: 77-year-old female with mild dementia lives at home alone she took her morning medicines as well as her evening medicines this morning. According to her daughter she taken a total of the following metformin 500 mg amlodipine 5 mg Seroquel 50 mg and glipizide 15 mg. She normally also takes insulin but only took a single dose of her insulin she is on detemir insulin 20 units each morning which she did take. She has been asymptomatic. No vomiting no diarrhea she is at her normal baseline per daughter who is at the bedside. No complaints of bowel or bladder dysfunction. No chest pain no abdominal pain. MD complaint: accidental overdose Onset (ago): minute(s) Review of Systems Const: Denies: fever(s), chills, body aches, change in appetite, fatigue or malaise ENMT: Denies: throat pain, ear or mastoid pain, nasal discharge or nasal congestion Card: Denies: chest pain, edema, dyspnea on exertion or orthopnea Resp: Denies: dyspnea, productive cough or non-productive cough GI: Denies: abdominal pain, nausea, vomiting, hematemesis, coffee ground emesis, diarrhea, constipation, bloating, hematochezia or melena : Denies: flank pain, difficulty voiding, dysuria, urinary frequency or urinary urgency Skin/Breast: Denies: rash or pruritus PFSH ED PFSH: Medical History Alzheimer disease Alzheimer's disease Anxiety Chronic obstructive pulmonary disease Depression Diabetes DKA (diabetic ketoacidosis) Generalized epilepsy History of stroke History of tobacco abuse Hypercholesteremia Hypertension Hyponatremia Surgical History History of tonsillectomy History of total hysterectomy Social History Smoking and tobacco status: former smoker Quit status (tobacco): has quit using tobacco Year quit tobacco: 2019 2 PACK PER DAY X 58 Alcohol intake: never Substance/Drug Use: never Physical Exam Const: COMMON NORMALS: no acute distress GENERAL APPEARANCE: cooperative and comfortable ORIENTATION/CONSCIOUSNESS: Yes awake HENMT: COMMON NORMALS: normocephalic, atraumatic and hearing grossly normal b ilaterally HEAD & SCALP: normocephalic and atraumatic Resp: COMMON NORMALS: normal respiratory effort, No retractions, No use of accessory muscles and clear to auscultation bilaterally AUSCULTATION: clear to auscultation bilaterally Cardio: COMMON NORMALS: regular rate, regular rhythm and No murmurs present (Cardio) RATE: regular rate RHYTHM: regular rhythm GI: COMMON NORMALS: Soft to palpation and No hepatosplenomegaly present AUSCULTATION: Yes normoactive bowel sounds PALPATION: Yes Soft to palpation, No Tenderness to palpation present (GI), No Guarding due to palpation present (GI) and Yes No hepatosplenomegaly present Extremity: COMMON NORMALS: normal to inspection, capillary refill normal, no clubbing, cyanosis or edema, no calf tenderness and no pedal edema Skin: COMMON NORMALS: no rashes or lesions noted GENERAL SKIN EXAM: no rashes or lesions noted Course Vital Signs: Vital signs: Vital Signs Temperature 97.4 F L 01/10/23 11:40 Pulse Rate 117 H 01/10/23 11:40 Respiratory Rate 16 01/10/23 11:40 Blood Pressure 133/71 01/10/23 11:40 Pulse Oximetry 94 01/10/23 11:40 Oxygen Delivery Me thod Room Air 01/10/23 11:40 MDM - Overdose Medical Decision Making Blood sugars actually elevated at this point. She only took a single dose of her insulin. Given the fact she is on insulin and glipizide is probably not going to cause significant amount if any hypoglycemia. The other medications may cause some sedation over not likely to cause any toxic or significant side effects. Her blood pressure is well controlled and is adequate. Encouraged him to monitor blood sugars every 2 hours the next 6 to 8 hours if any problems or changes in symptoms or persistent hypoglycemia return Medical Records I reviewed the patient's medical records. Lab Data Laboratory Results POC Glucose 279 mg/dL (70-110) H 01/10/23 12:01 Discharge Plan Discharge Patient Disposition: Home Clinical Impression: Accidental medication error, Diabetes mellitus, Dementia Condition: Stable Prescriptions: No Action aspirin [Adult Aspirin Regimen] 81 mg tablet,delayed release (DR/EC) 81 mg PO QAM levetiracetam [Keppra XR] 500 mg tablet extended release 24 hr 500 mg PO DAILY Qty: 90 3RF Rx Instructions: 340 be Please refill as a 90-day supply with 3 refills galantamine 24 mg capsule,ext rel. pellets 24 hr 24 mg PO QAM Qty: 90 5RF Rx Instructions: administer with breakfast 340B (DME) FreeStyle Lite Strips Strip See Rx Instructions .Route Qty: 100 3RF Rx Instructions: to use once daily in freestyle meter 90 day supply (DME) blood-glucose meter [FreeStyle Lite Meter] Kit See Rx Instructions .Route Qty: 1 0RF Rx Instructions: use once daily to check blood sugar albuterol sulfate [Ventolin HFA] 90 mcg/actuation HFA aerosol inhaler 2 puff inhalation Q6H PRN (Reason: shortness of breath or wheezing) 30 Days Qty: 18 11RF clopidogrel 75 mg tablet 75 mg PO QAM 90 Days Qty: 90 3RF lisinopril 20 mg tablet 20 mg PO QAM 90 Days Qty: 90 2RF quetiapine 25 mg tablet See Rx Instructions .ROUTE .COMPLEX Qty: 60 2RF Dose Instruction: TAKE 1 TABLET BY MOUTH TWICE DAILY Rx Instructions: TAKE 1 TABLET BY MOUTH TWICE DAILY alprazolam 0.5 mg tablet 0.5 mg PO BID PRN (Reason: Anxiety) Qty: 60 3RF Levemir FlexPen 100 unit/mL (3 mL) insulin pen 100 unit SUBCUT DAILY Qty: 15 3RF cyclobenzaprine 10 mg tablet 10 mg PO BID PRN (Reason: muscle spasm) Qty: 30 0RF celecoxib [Celebrex] 200 mg capsule 200 mg PO BID Qty: 60 2RF citalopram 20 mg tablet See Rx Instructions .ROUTE .COMPLEX Qty: 30 0RF Dose Instruction: TAKE 1 TABLET BY MOUTH EVERY DAY Rx Instructions: TAKE 1 TABLET BY MOUTH EVERY DAY Spiriva with HandiHaler 18 mcg capsule, w/inhalation device 1 cap inhalation DAILY Qty: 30 5RF hydrocodone-acetaminophen 5-325 mg tablet 1 tab PO Q12H PRN (Reason: pain) 20 Days Qty: 40 0RF Women's 50 Plus Daily Formula 400 mcg-500 mg calcium-20 mcg Tablet 1 tab PO DAILY amlodipine 2.5 mg tablet 2.5 mg PO BID (DME) lancet-gluc test strip-needles Combo Pack See Rx Instructions .Route Qty: 300 0RF Rx Instructions: As directed sitagliptin phosphate 100 mg tablet 100 mg PO DAILY Qty: 60 3RF Humalog U-100 Insulin 100 unit/mL solution 2 unit SUBCUT AC Qty: 10 5RF Discharge Orders: Discharge ED (Routine); Ordered 01/10/23 Ordered By: Edd Interiano Referrals: Coco Flores MD [Primary Care Provider] - Discharge Diet: Usual diet Discharge Activity: Increase activity as tolerated Patient Instructions: Opioid Safety, Pain Management Activity Restrictions/Additional Instructions: You were seen today after an accidental doubling of your medications this morning. Monitor your blood sugar every 2 hours for the next 6 to 8 hours. If you have any further problems or persistent low blood sugars return to the emergency room continue your current medication regimen as prescribed. Coding Level of Care Code ED Auto Service Instructor for Yolette Patton
[2023-01-10 12:05] LABS: Glucose Point of Care 279 mg/dL (70-110)
== END 2023-01-10 12:16 | disposition home or self-care (01) ==
PROVIDERS: Emergency Provider Family Medicine; PCP Family Medicine
DX: T38.3X1A Poisoning by insulin and oral hypoglycemic [antidiabetic] drugs, accidental (unintentional), initial encounter (principal); T46.1X1A Poisoning by calcium-channel blockers, accidental (unintentional), initial encounter; T43.591A Poisoning by other antipsychotics and neuroleptics, accidental (unintentional), initial encounter; E11.65 Type 2 diabetes mellitus with hyperglycemia; Z79.84 Long term (current) use of oral hypoglycemic drugs; Z79.4 Long term (current) use of insulin
CPT/HCPCS: 36416; 82962; 99282

== ENCOUNTER 2023-01-20 13:33 | Outpatient (CLI) | payer MEDICARE, SELFPAY ==
--- NOTE | 2023-01-20 13:45 | MR_ITS ---
WS: [id number] MRI LUMBAR SPINE NONCONTRAST HISTORY: M51.36 - Other intervertebral disc degeneration, lumbar spine. COMPARISON: No similar studies. TECHNIQUE: Sagittal and axial multisequence imaging is submitted. Thoracolumbar scoliosis. Increased thoracic kyphosis. Straightening of the normal lumbar lordosis. 2 mm retrolisthesis of L2 and L3. No fractures or marrow edema. Mild disc space narrowing and desiccation. Conus terminates normally at L1-2 disc level. L1-L2: Diffuse annular disc bulging. No high-grade stenosis. L2-L3: Moderate annular disc bulging with effacement of the ventral thecal sac. Mild encroachment int o the subarticular recesses. Minimal contact on the traversing L3 nerve roots. L3-L4: Mild annular disc bulging with a central and bilateral small disc protrusions. Mild encroachme nt upon the subarticular recesses. There is mild disc contact upon the traversing L4 nerve roots. L4-L5: Mild annular disc bulging with ligamentum flavum and facet arthritis. Mild disc encroachment i nto the subarticular recesses. Contact on the L5 traversing nerve roots. Mild foraminal narrowing. L5-S1: Mild asymmetric disc bulging. Very slight contact on the S1 nerve roots. RIGHT renal cyst 3.1 cm. MR/MR lumbar spine wo con* [id number] IMPRESSION: 1. Advanced thoracolumbar scoliosis and degenerative disc disease. 2. Mild straightening of the normal lumbar lordosis. 3. Mild disc encroachment upon the subarticular recesses from L2-3 through L4- 5 with disc contacting the traversing nerve root at each level. No high-grade s tenosis. 4. Mild bilateral foraminal narrowing at L4-5.
== END 2023-01-20 13:34 | disposition home or self-care (01) ==
PROVIDERS: PCP Family Medicine; Visit Provider Family Medicine
DX: M51.36 Other intervertebral disc degeneration, lumbar region (principal); M48.061 Spinal stenosis, lumbar region without neurogenic claudication
CPT/HCPCS: 72148

== ENCOUNTER → 2023-01-28 14:08 | Outpatient (BNVA) | payer MEDICARE, SELFPAY | PROVIDERS: PCP Family Medicine; Visit Provider Specialist | DX: G30.9 Alzheimer's disease, unspecified (principal); F02.80 Dementia in other diseases classified elsewhere, unspecified severity, without behavioral disturbance, psychotic disturbance, mood disturbance, and anxiety | CPT/HCPCS: 99213 ==

== ENCOUNTER 2023-02-07 16:29 | Inpatient (IN) | payer MEDICARE, SELFPAY ==
[2023-02-07] VITALS (13 sets, daily range): BP systolic 152–191; BP diastolic 71–102; PULSE 93–108; RESP 15–23; TEMP 36.4; O2SAT 83–97
--- NOTE | 2023-02-07 17:32 | XRR_ITS ---
PROCEDURE INFORMATION: Exam: XR Chest Exam date and time: 02/07/2023 6:06 PM Age: 77 years old Clinical indication: Dyspnea; Additional info: SOB TECHNIQUE: Imaging protocol: Radiologic exam of the chest. Views: 1 view. COMPARISON: CR XR chest 1V portable [id number] 08/23/2022 4:18 PM FINDINGS: Lungs: There are diffuse increased interstitial markings along with bilateral small patchy basilar infiltrates. Pleural spaces: There is a small left pleural effusion. No pneumothorax. Heart/Mediastinum: Unremarkable. No cardiomegaly. Bones/joints: Unremarkable. XR/XR chest 1V portable [id number] IMPRESSION: 1. There are diffuse increased interstitial markings along with bilateral small patchy basilar infiltrates. These findings were not present on the prior exam. 2. There is a small left pleural effusion.
[2023-02-07 17:48] LABS: ABG PCO2 43.9 mmHg (35-45); ABG PH Result 7.48 (7.35-7.45); Arterial Blood Gas Hematocrit 33.6 % (37-47); Base Excess ABG 7.9 mmol/L (-2.0-2.0); Blood Gas Allen Test Pos; Blood Gas Sample Site Radial, right; Blood Gas Sample Type Arterial; HCO3 ABG 32.3 mmol/L (22-26); HGB O2 Sat 95.3 % (95-100); Methemoglobin 0.6 % (0.4-1.5); Oxygen Device ROOM AIR; PO2 ABG 86.3 mmHg (80.0-100.0)
[2023-02-07] MEDS: ipratropium-albuterol 3 mL Neb INHALATION (17:53)
[2023-02-07 17:55] LABS: Basophils # 0.1 10^3/uL (0.0-0.1); Basophils % 0.6 %; Eosinophils # 0.1 10^3/uL (0.0-0.8); Eosinophils % 1.2 %; Hematocrit 46.1 % (37.0-47.0); Hemoglobin 14.5 g/dL (11.5-15.3); Lymphocytes # 0.7 10^3/uL (0.8-4.8); Lymphocytes % 7.9 %; Mean Corpuscular HGB Conc 31.5 g/dL (30.0-36.0); Mean Corpuscular Hemoglobin 29.4 pg (28.0-34.0); Mean Corpuscular Volume 93.5 fl (81-99); Mean Platelet Volume 9.2 fL (7.4-10.4); Monocytes # 0.5 10^3/uL (0.2-0.9); Monocytes % 5.2 %; Neutrophils # 7.33 10^3/uL (1.8-7.7); Neutrophils % 84.8 %; Nucleated Red Blood Cells % 0 %; Platelet Count 463 10^3/cmm (130-400); Red Blood Count 4.93 10^6/uL (4.1-5.3); Red Cell Distribution Width 15.6 % (12.1-15.1); White Blood Count 8.6 10^3/uL (4.0-10.0)
[2023-02-07 18:24] LABS: Lactic Sepsis W/Reflex 1.4 mmol/L (0.5-2.2)
[2023-02-07 18:40] LABS: Alanine Aminotransferase 34 U/L (0-33); Albumin Level 3.9 g/dL (3.5-5.2); Alkaline Phosphatase 224 U/L (35-105); Anion Gap 13.8 (5-19); Aspartate Amino Transferase 24 U/L (0-32); Blood Urea Nitrogen 23 mg/dL (8-23); Calcium 10.6 mg/dL (8.5-10.5); Carbon Dioxide 32 mmol/L (22-29); Chloride 97 mmol/L (98-107); Glucose 118 mg/dL (65-115); Magnesium 1.9 mg/dL (1.7-2.3); NT Pro B Type Natriuretic Pept 468 pg/mL (0-450); Osmolality Calculated 293 mOsm/kg (285-295); Potassium 3.8 mmol/L (3.5-5.1); Sodium 139 mmol/L (136-145); Total Bilirubin 0.2 mg/dL (0.15-1.2); Total Protein 6.9 g/dL (6.6-8.7)
--- NOTE | 2023-02-07 18:56 | PC.NURSE ---
Received report from DANIELLA Bell at this time
[2023-02-07] MEDS: piperacillin-tazobactam 3.375 GM in sodium chloride 0.9% (plus) 50 ML IV (19:06)
[2023-02-07] MEDS: FUROsemide 10 mg/mL SDV 4mL 40 MG IVP (19:47)
--- NOTE | 2023-02-07 19:54 | PM.HP ---
Providers/Chief Complaint Admitting Physician: Elpidio Cunningham MD Primary Care Provider: Coco Flores MD Chief Complaint: sob, diarrhea 2xweeks History of Present Illness Maria M Klein is a 77 year old female with dementia comes to the hospital with her daughter. She has had increasing shortness of breath over the last 2 to 3 weeks, getting worse. She has had some lower extremity edema. Cough is usually nonproductive. She has not been wheezing. She has had no fever. She has had no history of CHF. There have been no ill contacts. Daughter does report she has some coughing when she drinks fluids. She has some loose stool but has had for quite some time. Patient denies any chest discomfort. She has been sleeping more in the upright position. The emergency department had given her some Zosyn IV prior to me seeing her, a breathing treatment. I directed them over the phone before seeing the patient to give her dose of Lasix and perform a COVID PCR. Blood culture had already been drawn. Review of Systems General: Reports: 10 or more systems reviewed and unremarkable except in HPI and below Card: Reports: swelling of feet/ankles; Denies: chest pain Resp: Reports: dyspnea and non-productive cough GI: Denies: abdominal pain, nausea, vomiting or melena Medications/Allergies Home Medications Medication Instructions Recorded Confirmed Last Taken Type aspirin 81 mg tablet,delayed 81 mg PO QAM 01/24/20 01/28/23 08/23/22 History release (Adult Aspirin Regimen) Ventolin HFA 90 mcg/actuation 2 puff inhalation Q6H PRN 02/08/21 01/28/23 Unknown Rx aerosol inhaler (albuterol sulfate) shortness of breath or wheezing 30 days #18 grams blood sugar diagnostic (FreeStyle #100 ea 04/15/22 01/28/23 Unknown Rx Lite Strips) blood-glucose meter (FreeStyle #1 ea 04/15/22 01/28/23 Unknown Rx Lite Meter kit) clopidogrel 75 mg tablet 75 mg PO QAM 90 days #90 tabs 06/21/22 01/28/23 08/23/22 Rx lisinopril 20 mg tablet 20 mg PO QAM 90 days #90 tabs 07/16/22 01/28/23 08/23/22 Rx ythisbhs-wst-dlfpn ac 400 1 tab PO DAILY 08/23/22 01/28/23 08/23/22 History mcg-calcium carb 500 mg-vit K1 20 mcg tablet (Women's 50 Plus Daily Formula) insulin lispro 100 unit/mL 2 unit (0.02 mL) SUBCUT AC #10 mL 08/27/22 01/28/23 Unknown Rx subcutaneous solution (Humalog U-100 Insulin) lancet with blood glucose test #300 ea 08/27/22 01/28/23 Unknown Rx strips and pen needles combo pack alprazolam 0.5 mg tablet 0.5 mg PO BID PRN Anxiety #60 tabs 11/21/22 01/28/23 Unknown Rx insulin detemir U-100 100 unit/mL 100 unit SUBCUT DAILY #15 mL 11/29/22 01/28/23 Unknown Rx (3 mL) subcutaneous pen (Levemir FlexPen) tiotropium bromide 18 mcg capsule 1 cap inhalation DAILY #30 caps 01/06/23 01/28/23 Unknown Rx with inhalation device (Spiriva with HandiHaler) hydrocodone 5 mg-acetaminophen 325 1 tab PO Q12H PRN pain 30 days #60 01/13/23 01/28/23 Unknown Rx mg tablet tabs sitagliptin phosphate 100 mg tablet 50 mg PO DAILY #60 tabs 01/13/23 01/28/23 Unknown Rx amlodipine 2.5 mg tablet See Rx Instructions .Route 01/15/23 01/28/23 Unknown Rx .COMPLEX #180 tabs celecoxib 200 mg capsule (Celebrex) 200 mg PO BID #60 caps 01/27/23 01/28/23 Unknown Rx mirtazapine 15 mg tablet 15 mg PO DAILY rest/poor appetite 01/27/23 01/28/23 Unknown Rx #30 tabs citalopram 20 mg tablet 40 mg PO DAILY #180 tabs 01/28/23 01/28/23 Unknown Rx galantamine 24 mg 24 hr 24 mg PO QAM #90 caps 01/28/23 01/28/23 Unknown Rx capsule,extended release levetiracetam 500 mg 500 mg PO DAILY #90 tabs 01/28/23 01/28/23 Unknown Rx tablet,extended release 24 hr (Keppra XR) quetiapine 25 mg tablet See Rx Instructions .Route 01/28/23 01/28/23 Unknown Rx .COMPLEX #180 tabs Allergies Allergy/AdvReac Type Severity Reaction Status Date / Time No Known Allergies Allergy Verified 01/28/23 14:17 PFSH Acute PFSH: Medical History Alzheimer disease Alzheimer's disease Anxiety Chronic obstructive pulmonary disease Depression Diabetes DKA (diabetic ketoacidosis) Generalized epilepsy History of stroke History of tobacco abuse Hypercholesteremia Hypertension Hyponatremia Surgical History History of tonsillectomy History of total hysterectomy Social History Smoking and tobacco status: former smoker Quit status (tobacco): has quit using tobacco Year quit tobacco: 2019 2 PACK PER DAY X 58 Alcohol intake: never Substance/Drug Use: never Other PFSH information: Supplemental PFSH Information: Family history of alcoholism Vitals/I&O/Wt Last Vital Signs Temp 97.5 F L 02/07/23 17:08 Pulse 98 02/07/23 19:37 Resp 19 H 02/07/23 19:37 BP 173/102 02/07/23 19:37 Pulse Ox 90 02/07/23 19:37 O2 Del Method Nasal Cannula 02/07/23 19:37 O2 Flow Rate 4 02/07/23 19:37 02/07/23 02/07/23 02/07/23 06:59 14:59 22:59 Intake Total 50 / 50 Balance 50 / 50 Physical Exam Narrative: General exam is white female, initially on 4 L of oxygen, with some tachypnea and mild accessory muscle use. HEENT: Atraumatic and normocephalic. Oropharynx clear Neck is supple no lymphadenopathy or thyromegaly Cardiovascular regular rate and rhythm, heart sounds distant Lungs crackles bibasilar with diminished breath sounds. No wheezing Abdomen is soft positive bowel sounds with no obvious organomegaly exams deferred Extremities trace edema bilaterally Skin no rash Neuro no obvious focal deficits. Data 02/07/23 17:13 02/07/23 17:13 Other Labs: ABG demonstrates pH 7.48, PCO2 44, PO2 86. I believe this was done on at least 2 L of oxygen. It is incorrect and that it says the room air. LFTs are normal with the exception of ALT of 34 and alk phos of 224 Calcium slightly high at 10.6 BNP elevated at 468 Albumin normal Chest x-ray demonstrates interstitial infiltrate bilaterally. Cannot rule out CHF. Small left pleural effusion. This is per my read. Micro: Microbiology 02/07/23 18:45 Blood Culture - Preliminary Blood SPECIMEN COLLECTED 02/07/23 18:17 Blood Culture - Preliminary Blood SPECIMEN COLLECTED A&P Assessment and plan (1) Acute congestive heart failure: I believe the patient likely has acute congestive heart failure, likely diastolic. She has peripheral edema, markedly elevated blood pressure. Bilateral infiltrates, crackles on exam. Further testing is needed. Continue Lasix 40 mg IV every 12 hours Check echocardiogram Check EKG (2) Pneumonia: Cannot completely rule out pneumonia. She is already received a dose of Zosyn. Check COVID PCR Check procalcitonin Sputum culture Changed to Rocephin and Zithromax until further delineation of infiltrate can be made. As family reports occasional choking with drinking, will have physical therapy evaluate the patient. (3) Hypoxia: Wean oxygen as tolerated (4) Alzheimer disease: Significant dementia. Family is considering placing her in a residential care facility Plan History of seizure disorder. Continue Keppra Type 2 diabetes, consistent carb diet, sliding scale insulin Full code currently Lovenox for DVT prophylaxis Attestations Medical Necessity Statement*: Will require greater than 2 midnight stay for evaluation and treatment of acute congestive heart failure, possible pneumonia in this patient with hypoxemia Diagnoses Acute congestive heart failure I50.9 Pneumonia J18.9 Hypoxia R09.02 Alzheimer disease G30.9; F02.80 Time Spent (min) 45
--- NOTE | 2023-02-07 20:00 | ECG_ITS ---
[facility] Test Date: 2023-02-07 Pat Name: Maria M Klein Department: Room: 270 Gender: Female Clinical Specialist Vascular: : 1945 Requested By: Elpidio Ricci Order Number: [id number] Collin MD: Kamala East M.D. Measurements Intervals [place] Rate: 99 P: 57 NH: 181 QRS: 33 QRSD: 82 T: 61 QT: 356 QTc: 457 Interpretive Statements SINUS RHYTHM LEFT ATRIAL ENLARGEMENT [-0.15mV P-WAVE IN V1/V2] Compared to ECG 04/25/2021 18:10:48 Atrial abnormality now present Atrial flutter no longer present Electronically Signed On 02-08-2023 6:55:51 CDT by Kamala East M.D. [id number]
--- NOTE | 2023-02-07 20:28 | ED_ITS ---
HPI - SOB/Dyspnea General: Chief Complaint: Shortness of Breath/Dyspnea Stated Complaint: sob, diarrhea 2xweeks Time Seen by Provider: 02/07/23 17:24 History of Present Illness: HPI Narrative: 77-year-old female with complex medical history including COPD, diabetes, dementia, anxiety and hypertension. She presents emergency room with shortness of breath and cough for the past few days. Patient describes the cough as dry cough and denies coughing up blood or vomiting blood. Chest pain, nausea or vomiting. On present emergency room patient was found to be hypoxic but improved after she was placed on oxygen. Patient denies any recent foreign travel or sick contact. Associated symptoms: Deny abdominal pain, chest congestion, chest pain, fever(s), hemoptysis, lightheadedness, nausea, palpitations, syncope or vomiting Review of Systems General: Reports: 10 or more systems reviewed and unremarkable except in HPI and below Const: Denies: fever(s), chills, body aches or change in appetite Card: Reports: edema and dyspnea on exertion; Denies: chest pain, palpitations, irregular heart rhythm, swelling of feet/ankles, lightheadedness, syncope, leg pain with exertion or acrocyanosis Resp: Reports: dyspnea and non-productive cough; Denies: wheezing, stridor, pain on inspiration, change in phlegm color, hemoptysis or chest congestion GI: Denies: abdominal pain, nausea, vomiting or hematemesis PFS ED PFSH: Medical History Alzheimer disease Alzheimer's disease Anxiety Chronic obstructive pulmonary disease Depression Diabetes DKA (diabetic ketoacidosis) Generalized epilepsy History of stroke History of tobacco abuse Hypercholesteremia Hypertension Hyponatremia Surgical History History of tonsillectomy History of total hysterectomy Social History Smoking and tobacco status: former smoker Quit status (tobacco): has quit using tobacco Year quit tobacco: 2019 2 PACK PE R DAY X 58 Alcohol intake: never Substance/Drug Use: never Physical Exam Const: COMMON NORMALS: no acute distress, average body habitus, patient oriented x3, no limitations, healthy appearing, alert and well nourished Eye: COMMON NORMALS: Equal, round and reactive pupils present, EOMs intact bilaterally, conjunctivae normal, no scleral icterus, no papilledema, normal visual brenner by confrontation and fundi normal bilaterally CONJUNCTIVA: Yes conjunctivae normal PUPIL: Yes Equal, round and reactive pupils present DIRECT OPHTHALMOSCOPY: Yes no papilledema and Yes fundi normal bilaterally Neck/C-Spine: COMMON NORMALS: no JVD Chest: COMMONS NORMALS: normal inspection of the chest, normal palpation of entire chest wall, normal inspection of the breasts and normal palpation of the breasts Breast/axilla inspection: Yes normal inspection of the breasts BREAST/AXILLA PALPATION: Yes normal palpation of the breasts Resp: AUSCULTATION: rales, rhonchi, diminished lung sounds, no bronchial breath sounds, no bronchovesicular breath sounds, no egophony, no tactile fremitus and No rub present Cardio: COMMON NORMALS: no JVD, regular rate, regular rhythm, S1 normal heart sound present, S2 normal heart sound present, No gallops present (Cardio), No clicks present (Cardio), No murmurs present (Cardio), No rub (Cardio) and P eripheral pulses 2+ throughout RATE: regular rate RHYTHM: regular rhythm HEART SOUNDS: S1 normal heart sound present and S2 normal heart sound present PERIPHERAL PULSES: Peripheral pulses 2+ throughout GI: COMMON NORMALS: Normal to inspection, nondistended, normoactive bowel sounds present, Soft to palpation, non-tender, No hepatosplenomegaly present, no masses and no bruits PALPATION: Yes Soft to palpation and Yes No hepatosplenomegaly present Extremity: GENERAL: No calf tenderness, No cyanosis, No deformity, Yes edema, No hypertrophy, No mottling, No pallor and No palpable cord Neuro: COMMON NORMALS: patient oriented x3 SENSORIUM/ORIENTATION: Yes alert Course Vital Signs: Vital signs: Vital Signs Temperature 97.5 F L 02/07/23 20:43 Pulse Rate 108 H 02/07/23 20:43 Respiratory Rate 17 02/07/23 20:43 Blood Pressure 172/72 02/07/23 20:43 Pulse Oximetry 91 02/07/23 20:43 Oxygen Delivery Me thod Nasal Cannula 02/07/23 21:15 Oxygen Flow Rate 4 02/07/23 20:01 MDM - SOB/Dyspnea Medical Decision Making Patient made comfortable emergency room. Patient have extensive work-up done including labs, ABG, x-ray and EKG. Lena the lab findings and x-ray findings with both patient and family members. Patient with the hospitalist. Admitted for further evaluation and treatment. Differential Diagnosis Likely acute exacerbation of chronic obstructive airways disease, congestive heart failure, community acquired pneumonia, asthma with exacerbation and pulmonary embolism Lab Data 02/07/23 17:13 02/07/23 17:13 Labs/Radiology: Radiology Impressions Chest X-Ray 02/07/23 17:32 IMPRESSION: 1. There are diffuse increased interstitial markings along with bilateral small patchy basilar infiltrates. These findings were not present on the prior exam. 2. There is a small left pleural effusion. Laboratory Results WBC 8.6 10^3/uL (4.0-10.0) 02/07/23 17:13 RBC 4.93 10^6/uL (4.1-5.3) 02/07/23 17:13 Hgb 14.5 g/dL (11.5-15.3) 02/07/23 17:13 Hct 46.1 % (37.0-47.0) 02/07/23 17:13 MCV 93.5 fl (81-99) 02/07/23 17:13 MCH 29.4 pg (28.0-34.0) 02/07/23 17:13 MCHC 31.5 g/dL (30.0-36.0) 02/07/23 17:13 RDW 15.6 % (12.1-15.1) H 02/07/23 17:13 Plt Count 463 10^3/cmm (130-400) H 02/07/23 17:13 MPV 9.2 fL (7.4-10.4) 02/07/23 17:13 Neut % (Auto) 84.8 % 02/07/23 17:13 Lymph % (Auto) 7.9 % 02/07/23 17:13 Patrick % (Auto) 5.2 % 02/07/23 17:13 Eos % (Auto) 1.2 % 02/07/23 17:13 Baso % (Auto) 0.6 % 02/07/23 17:13 Neut # (Auto) 7.33 10^3/uL (1.8-7.7) 02/07/23 17:13 Lymph # (Auto) 0.7 10^3/uL (0.8-4.8) L 02/07/23 17:13 Patrick # (Auto) 0.5 10^3/uL (0.2-0.9) 02/07/23 17:13 Eos # (Auto) 0.1 10^3/uL (0.0-0.8) 02/07/23 17:13 Baso # (Auto) 0.1 10^3/uL (0.0-0.1) 02/07/23 17:13 Nucleated RBC % (auto) 0 % 02/07/23 17:13 Nucleated RBCs # 0.0 /100WBC 02/07/23 17:13 Specimen Type Arterial 02/07/23 17:36 Sample Site Radial, right 02/07/23 17:36 ABG pH 7.48 (7.35-7.45) H 02/07/23 17:36 ABG pCO2 43.9 mmHg (35-45) 02/07/23 17:36 ABG pO2 86.3 mmHg (80.0-100.0) 02/07/23 17:36 ABG HCO3 32.3 mmol/L (22-26) H 02/07/23 17:36 ABG Base Excess 7.9 mmol/L (-2.0-2.0) H 02/07/23 17:36 [place] Test Pos 02/07/23 17:36 Hematocrit 33.6 % (37-47) L 02/07/23 17:36 Hgb O2 Saturation 95.3 % (95-100) 02/07/23 17:36 Carboxyhemoglobin 2.0 %THgb (0.4-20.1) 02/07/23 17:36 Methemoglobin 0.6 % (0.4-1.5) 02/07/23 17:36 Total Hemoglobin 11.0 g/dL (12-16) L 02/07/23 17:36 O2 Delivery Device Room air 02/07/23 17:36 Military Logistics Specialist ID [id number] 02/07/23 17:36 Sodium 139 mmol/L (136-145) 02/07/23 17:13 Potassium 3.8 mmol/L (3.5-5.1) 02/07/23 17:13 Chloride 97 mmol/L (98-107) L 02/07/23 17:13 Carbon Dioxide 32 mmol/L (22-29) H 02/07/23 17:13 Anion Gap 13.8 (5-19) 02/07/23 17:13 BUN 23 mg/dL (8-23) 02/07/23 17:13 Creatinine 0.6 mg/dL (0.5-0.9) 02/07/23 17:13 GFR Calculation Not Reportable 02/07/23 17:13 Glucose 118 mg/dL (65-115) H 02/07/23 17:13 Calculated Osmolality 293 mOsm/kg (285-295) 02/07/23 17:13 Lactic Acid 1.4 mmol/L (0.5-2.2) 02/07/23 17:13 Calcium 10.6 mg/dL (8.5-10.5) H 02/07/23 17:13 Magnesium 1.9 mg/dL (1.7-2.3) 02/07/23 17:13 Total Bilirubin 0.2 mg/dL (0.15-1.2) 02/07/23 17:13 AST 24 U/L (0-32) 02/07/23 17:13 ALT 34 U/L (0-33) H 02/07/23 17:13 Alkaline Phosphatase 224 U/L (35-105) H 02/07/23 17:13 NT-Pro-B Natriuret Pep 468 pg/mL (0-450) H 02/07/23 17:13 Total Protein 6.9 g/dL (6.6-8.7) 02/07/23 17:13 Albumin 3.9 g/dL (3.5-5.2) 02/07/23 17:13 Globulin 3.0 g/dL (1.3-4.6) 02/07/23 17:13 Procalcitonin 0.07 ng/mL (0-0.5) 02/07/23 17:13 TSH 1.15 uIU/mL (0.27-4.20) 02/07/23 17:13 Coronavirus 229E (PCR) Not detected (NOT DETECT) 02/07/23 19:55 SARS-CoV-2 (PCR) Not detected (NOT DETECT) 02/07/23 19:55 Discharge Plan Discharge Patient Disposition: Admitted As Inpatient Admit Provider: Elpidio Cunningham Clinical Impression: Acute exacerbation of chronic obstructive airways disease, Congestive heart failure, Hypoxia, Pneumonia Condition: Stable Coding Level of Care Code ED Records Administrator for Yolette Patton
[2023-02-07] MEDS: hyDRALAzine 20 mg/mL INJ 1 mL 5 MG IVP (20:34)
[2023-02-07 20:42] LABS: Procalcitonin 0.07 ng/mL (0-0.5); Thyroid Stimulating Hormone 1.15 uIU/mL (0.27-4.20)
[2023-02-07 21:29] LABS: Glucose Point of Care 109 mg/dL (70-110)
[2023-02-07 22:05] LABS: Adenovirus Not Detected (NOT DETECT); Chlamydia Pneumoniae Not Detected (NOT DETECT); Coronavirus 229E,HKU1,NL63,OC4 Not Detected (NOT DETECT); Human Metapneumovirus Not Detected (NOT DETECT); Human Rhinovirus/Enterovirus Not Detected (NOT DETECT); Influenza A Not Detected (NOT DETECT); Influenza A H1 Not Detected (NOT DETECT); Influenza A H1-2009 Not Detected (NOT DETECT); Influenza A H3 Not Detected (NOT DETECT); Influenza B Not Detected (NOT DETECT); Mycoplasma Pneumoniae Not Detected (NOT DETECT); Parainfluenza Virus Type 1 Not Detected (NOT DETECT); Parainfluenza Virus Type 2 Not Detected (NOT DETECT); Parainfluenza Virus Type 3 Not Detected (NOT DETECT); Parainfluenza Virus Type 4 Not Detected (NOT DETECT); Respiratory Syncytial Virus A Not Detected (NOT DETECT); Respiratory Syncytial Virus B Not Detected (NOT DETECT); SARS-COV-2 Not Detected (NOT DETECT)
[2023-02-07] MEDS: cefTRIAXone 1,000 MG in sodium chloride 0.9% (plus) 50 ML 100 MG IV (22:43)
[2023-02-07] MEDS: HYDROcodone-acetaminophen 5-325 mg Tablet 1 TAB PO (22:44)
[2023-02-07] MEDS: quetiapine 25 mg Tablet PO (22:44)
[2023-02-07] MEDS: enoxaparin 40 mg/0.4 mL Syringe SUBCUT (22:44)
[2023-02-07] MEDS: azithromycin 500 MG in sodium chloride 0.9% 250 ML 250 MG IV (23:29)
[2023-02-08] VITALS (14 sets, daily range): BP systolic 141–170; BP diastolic 65–85; PULSE 94–110; RESP 16–24; TEMP 36.4–37; O2SAT 92–98
[2023-02-08] MEDS: ipratropium-albuterol 3 mL Neb INHALATION ×5 (03:08→21:24)
[2023-02-08 04:31] LABS: Basophils # 0.1 10^3/uL (0.0-0.1); Basophils % 0.7 %; Eosinophils # 0.1 10^3/uL (0.0-0.8); Eosinophils % 0.7 %; Hematocrit 40.8 % (37.0-47.0); Hemoglobin 12.6 g/dL (11.5-15.3); Lymphocytes # 0.7 10^3/uL (0.8-4.8); Lymphocytes % 5.5 %; Mean Corpuscular HGB Conc 30.9 g/dL (30.0-36.0); Mean Corpuscular Hemoglobin 29.5 pg (28.0-34.0); Mean Corpuscular Volume 95.6 fl (81-99); Mean Platelet Volume 9.1 fL (7.4-10.4); Monocytes # 0.6 10^3/uL (0.2-0.9); Monocytes % 5.2 %; Neutrophils # 10.69 10^3/uL (1.8-7.7); Neutrophils % 87.6 %; Nucleated Red Blood Cells % 0 %; Platelet Count 355 10^3/cmm (130-400); Red Blood Count 4.27 10^6/uL (4.1-5.3); Red Cell Distribution Width 15.4 % (12.1-15.1); White Blood Count 12.2 10^3/uL (4.0-10.0)
[2023-02-08 04:47] LABS: Alanine Aminotransferase 31 U/L (0-33); Albumin Level 3.2 g/dL (3.5-5.2); Alkaline Phosphatase 188 U/L (35-105); Aspartate Amino Transferase 23 U/L (0-32); Blood Urea Nitrogen 18 mg/dL (8-23); Calcium 9.3 mg/dL (8.5-10.5); Carbon Dioxide 31 mmol/L (22-29); Chloride 95 mmol/L (98-107); Globulin 3.3 g/dL (1.3-4.6); Glucose 126 mg/dL (65-115); Magnesium 1.5 mg/dL (1.7-2.3); Osmolality Calculated 283 mOsm/kg (285-295); Sodium 135 mmol/L (136-145); Total Bilirubin 0.2 mg/dL (0.15-1.2); Total Protein 6.5 g/dL (6.6-8.7)
[2023-02-08 04:51] LABS: Anion Gap 12.3 (5-19); Potassium 3.3 mmol/L (3.5-5.1)
[2023-02-08] MEDS: magnesium sulfate premix 2 GM/50 ML PIGGYBACK IV (05:34)
[2023-02-08] MEDS: lisinopril 20 mg Tablet PO (05:34)
[2023-02-08] MEDS: potassium chloride ER 20 mEq Tablet 40 MEQ PO (05:34)
[2023-02-08] MEDS: aspirin 81 mg EC Tablet PO (05:35)
[2023-02-08] MEDS: clopidogrel 75 mg Tablet PO (05:35)
[2023-02-08] MEDS: FUROsemide 10 mg/mL SDV 4mL 40 MG IVP ×2 (06:25→18:14)
[2023-02-08 07:06] LABS: Glucose Point of Care 148 mg/dL (70-110)
[2023-02-08] MEDS: budesonide 0.5 mg/2 mL Neb INHALATION ×2 (08:25→21:24)
[2023-02-08] MEDS: citalopram 20 mg Tablet 40 MG PO (09:10)
[2023-02-08] MEDS: mirtazapine 15 mg Tablet PO (09:10)
[2023-02-08] MEDS: HYDROcodone-acetaminophen 5-325 mg Tablet 1 TAB PO ×2 (09:11→21:23)
[2023-02-08] MEDS: levETIRAcetam 500 mg Tablet 250 MG PO ×2 (09:11→18:13)
[2023-02-08] MEDS: quetiapine 25 mg Tablet PO ×2 (09:11→18:12)
[2023-02-08] MEDS: insulin lispro 100 unit/1 mL SUBCUT ×3 (09:13→18:14)
[2023-02-08 10:22] LABS: Urine Appearance Clear (CLEAR); Urine Color Yellow (Yellow)
[2023-02-08 10:23] LABS: Bilirubin Urine Neg (Negative); Blood Urine 2+ (Negative); Glucose Urine UA Norm (Normal); Ketones Urine Negative (Negative); Leukocyte Esterase Urine Negative (Negative); Nitrate Urine Negative (Negative); Protein Urine Neg (Negative); RBC Urine 0-4 /hpf (0-2); Specific Gravity, Urine 1.015 (1.005-1.030); Squamous Epithelial Cell Urine 0-4 /hpf (0-5); Urobilinogen Urine Norm (Negative); pH Urine 5 (5-7)
[2023-02-08 10:24] LABS: Hyaline Casts Urine RARE /lpf
[2023-02-08 10:25] LABS: Add Urine Culture? No
[2023-02-08 12:05] LABS: Glucose Point of Care 203 mg/dL (70-110)
--- NOTE | 2023-02-08 15:57 | PM.PN ---
Subjective Subjective: Patient was seen and examined this morning shortness of breath has improved, bilateral lower extremity swelling has significantly gone down as per the patient, currently she does not have any significant bilateral lower extremities, she is saturating well on 3-4 Ls supplemental oxygen.According to the patient she is making significant urine.Has been afebrile overnight,Blood cultures have been drawn, 2D echo has been done. Medications: Medication Review Details: Generic Name Dose Route Start Last Admin Trade Name Freq PRN Reason Stop Dose Admin Hydrocodone Bitart /Acetaminophen 1 tab 02/07/23 21:41 02/08/23 09:11 Hydrocodone-Acet aminophen 5-325 Mg Tablet PO 1 tab Q12H PRN Administration pain Albuterol/Ipratrop ium 3 ml 02/07/23 20:43 02/08/23 14:36 Ipratropium-Albu terol 3 Ml Neb INHALATION 3 ml Q6H HERMAN Administration Aspirin 81 mg 02/08/23 06:00 02/08/23 05:35 Aspirin 81 Mg Ec Tablet PO 81 mg QAM HERMAN Administration Budesonide 0.5 mg 02/08/23 09:00 02/08/23 08:25 Budesonide 0.5 M g/2 Ml Neb INHALATION 0.5 mg BID HERMAN Administration Citalopram Hydrobr omide 40 mg 02/08/23 09:00 02/08/23 09:10 Citalopram 20 Mg Tablet PO 40 mg DAILY HERMAN Administration Clopidogrel Bisulf ate 75 mg 02/08/23 06:00 02/08/23 05:35 Clopidogrel 75 M g Tablet PO 75 mg QAM HERMAN Administration Enoxaparin Sodium 40 mg 02/07/23 20:43 02/07/23 22:44 Enoxaparin 40 Mg /0.4 Ml Syringe SUBCUT 40 mg Q24H HERMAN Administration Furosemide 40 mg 02/08/23 07:00 02/08/23 06:25 Furosemide 10 Mg /Ml Sdv 4ml IVP 40 mg Q12H HERMAN Administration Ceftriaxone Sodium 1,000 mg/ 50 mls @ 100 mls/ hr 02/07/23 20:43 02/07/23 23:33 Sodium Chloride IV Infused Q24H HERMAN Infusion Protocol Azithromycin 500 m g/ Sodium 250 mls @ 250 mls /hr 02/07/23 20:43 02/08/23 00:52 Chloride IV Infused Q24H HERMAN Infusion Protocol Insulin Human Lisp ro 0 unit 02/07/23 21:00 02/08/23 12:09 Insulin Lispro 1 00 Unit/1 Ml SUBCUT 4 unit WM&BEDTIME HERMAN Administration Protocol Levetiracetam 250 mg 02/08/23 09:00 02/08/23 09:11 Levetiracetam 50 0 Mg Tablet PO 250 mg BID HERMAN Administration Lisinopril 20 mg 02/08/23 06:00 02/08/23 05:34 Lisinopril 20 Mg Tablet PO 20 mg QAM HERMAN Administration Mirtazapine 15 mg 02/08/23 09:00 02/08/23 09:10 Mirtazapine 15 M g Tablet PO 15 mg DAILY HERMAN Administration Non-Formulary Medi cation 24 mg 02/08/23 06:00 02/08/23 06:31 Galantamine PO Not Given QAM HERMAN Quetiapine Fumarat e 25 mg 02/07/23 20:43 02/08/23 09:11 Quetiapine 25 Mg Tablet PO 25 mg BID HERMAN Administration Vitals/I&O/Wt Last Vital Signs Temp 97.8 F 02/08/23 11:16 Pulse 104 H 02/08/23 13:28 Resp 17 02/08/23 13:28 BP 167/85 02/08/23 11:16 Pulse Ox 95 02/08/23 13:28 O2 Del Method Nasal Cannula 02/08/23 13:28 O2 Flow Rate 3 02/08/23 13:28 02/08/23 02/08/23 02/08/23 06:59 14:59 22:59 Intake Total 350 / 400 Output Total 100 / 100 Balance 350 / 400 -100 / -100 Physical Exam HENMT: COMMON NORMALS: normocephalic and atraumatic HEAD & SCALP: normocephalic and atraumatic Resp: OTHER: Left upper lung field anteriorly crackles present, fine bilateral basal crackles present. Cardio: COMMON NORMALS: regular rate, regular rhythm, S1 normal heart sound present, S2 normal heart sound present, No gallops present (Cardio), No murmurs present (Cardio), No rub (Cardio) and Peripheral pulses 2+ throughout RATE: regular rate RHYTHM: regular rhythm HEART SOUNDS: S1 normal heart sound present and S2 normal heart sound present PERIPHERAL PULSES: Peripheral pulses 2+ throughout GI: COMMON NORMALS: Normal to inspection, nondistended, normoactive bowel sounds present, Soft to palpation, non-tender, No hepatosplenomegaly present and no masses AUSCULTATION: Yes normoactive bowel sounds PALPATION: Yes Soft to palpation and Yes No hepatosplenomegaly present RECTAL EXAM: deferred Extremity: COMMON NORMALS: no clubbing, cyanosis or edema and no pedal edema Data 02/08/23 04:16 02/08/23 04:16 Micro: Microbiology 02/07/23 18:45 Blood Culture - Preliminary Blood SPECIMEN COLLECTED 02/07/23 18:17 Blood Culture - Preliminary Blood SPECIMEN COLLECTED A&P Assessment and plan (1) Acute congestive heart failure: Patient came in with chief complaint of shortness of breath, bilateral lower extremity swelling, has crackles on exam, no JVD. proBNP 468. X-ray chest has shown: Increased interstitial marking likely secondary to edema, has also shown patchy basilar infiltrates. Follow 2D echo. Continue Lasix 40 IV twice daily Monitor intake output Daily weight property assessment monitor Keep potassium greater than 4 magnesium greater than 2 (2) Pneumonia: Follow blood culture Sputum Gram stain and culture if possible COVID PCR negative Procalcitonin:0.07 Continue ceftriaxone and Rocephin (3) Hypoxia: Wean oxygen as tolerated (4) Alzheimer disease: Significant dementia. Family is considering placing her in a residential care facility Plan History of seizure disorder. Continue Keppra Type 2 diabetes, consistent carb diet, sliding scale insulin Full code currently Lovenox for DVT prophylaxis Attestations Medical Necessity Statement*: Needs to be in hospital for management of heart failure and pneumonia, for IV diuresis and need for IV antibiotics. Coding Level of Care Code Acute Code for g Fwd Diagnoses Acute congestive heart failure I50.9 Pneumonia J18.9 Hypoxia R09.02 Alzheimer disease G30.9; F02.80
[2023-02-08] MEDS: acetaminophen 325 mg Tablet 650 MG PO (16:04)
[2023-02-08 17:01] LABS: Glucose Point of Care 224 mg/dL (70-110)
[2023-02-08] MEDS: enoxaparin 40 mg/0.4 mL Syringe SUBCUT (20:04)
[2023-02-08] MEDS: azithromycin 500 MG in sodium chloride 0.9% 250 ML 250 MG IV (20:04)
[2023-02-08 20:35] LABS: Glucose Point of Care 92 mg/dL (70-110)
--- NOTE | 2023-02-08 20:43 | USCV_ITS ---
Maria M Klein Age: 77 Gender: F : 1945 Exam Date: 02/08/2023 14:56 Ordering Phys: Elpidio Cunningham MD Technologist: Cody Enriquez [place] [facility] [place]: chest pain BP: 134 / 73 HR: 105 Rhythm: Sinus Technical Quality: Adequate MEASUREMENTS (Male / Female) Normal Values 2D ECHO LV Ejection Fraction MOD 2C 60.7 % LV Ejection Fraction 2C AL 59.9 % IVC Diameter 1.4 cm DOPPLER AV Peak Velocity 137.0 cm/s LVOT Peak Velocity 128.0 cm/s MV Area PHT 5.0 cm squared Mitral E to A Ratio 0.7 MV E' Velocity 50.0 cm/s Mitral E to MV E' Ratio 13.6 Mitral E to LV E' Lateral Ratio 10.4 Mitral E to LV E' Septal Ratio 19.9 FINDINGS Left Ventricle Grossly normal left ventricular size and systolic function. Left ventricular ejection fraction is estimated at 60 %. No diagnosticregional wall motion abnormality. Grade I diastolic dysfunction (abnormal relaxation filling pattern), normal to mildly elevated filling pressures. Abnormal septal motion consistent with conduction abnormality. Right Ventricle Normal right ventricular size and systolic function. Right Atrium Right atrium not well visualized. Left Atrium Left atrium not well visualized. Mitral Valve Mildly thickened mitral valve. No mitral valve stenosis. Aortic Valve Aortic valve not well visualized. No aortic valve stenosis. No aortic valve regurgitation. Tricuspid Valve Structurally normal tricuspid valve. Pulmonic Valve Pulmonic valve not well visualized. Pericardium No pericardial effusion. Aorta Aorta not well visualized. IVC Inferior vena cava not visualized. Normal IVC dimension with > 50% respiratory change of the inferior vena cava. CONCLUSIONS 1. This is a technically difficult study. 2. Grossly normal left ventricular size and systolic function. Left ventricular ejection fraction is estimated at 60 %. No diagnostic regional wall motion abnormality. Grade I diastolic dysfunction (abnormal relaxation filling pattern), normal to mildly elevated filling pressures. 3. Direct comparison to previous study from 04/19/2014 is not possible due to technically difficult study. Kamala East MD (Electronically Signed) Final Date: 08 February 2023 18:38 S
[2023-02-08] MEDS: cefTRIAXone 1,000 MG in sodium chloride 0.9% (plus) 50 ML 100 MG IV (21:23)
[2023-02-09] VITALS (12 sets, daily range): BP systolic 113–186; BP diastolic 65–84; PULSE 97–118; RESP 15–22; TEMP 36.2–36.9; O2SAT 92–99
[2023-02-09] MEDS: ipratropium-albuterol 3 mL Neb INHALATION ×4 (02:20→19:40)
[2023-02-09] MEDS: lidocaine 5% Patch 1 PATCH TOPICAL ×2 (03:37→15:17)
[2023-02-09] MEDS: acetaminophen 325 mg Tablet 650 MG PO ×2 (03:38→20:11)
[2023-02-09] MEDS: lisinopril 20 mg Tablet PO (05:30)
[2023-02-09] MEDS: clopidogrel 75 mg Tablet PO (05:30)
[2023-02-09] MEDS: aspirin 81 mg EC Tablet PO (05:30)
[2023-02-09] MEDS: FUROsemide 10 mg/mL SDV 4mL 40 MG IVP (06:57)
[2023-02-09 06:59] LABS: Glucose Point of Care 181 mg/dL (70-110)
[2023-02-09] MEDS: levETIRAcetam 500 mg Tablet 250 MG PO ×2 (08:19→17:11)
[2023-02-09] MEDS: mirtazapine 15 mg Tablet PO (08:20)
[2023-02-09] MEDS: insulin lispro 100 unit/1 mL SUBCUT ×4 (08:20→21:27)
[2023-02-09] MEDS: quetiapine 25 mg Tablet PO ×2 (08:20→17:11)
[2023-02-09] MEDS: citalopram 20 mg Tablet 40 MG PO (08:25)
[2023-02-09] MEDS: HYDROcodone-acetaminophen 5-325 mg Tablet 1 TAB PO (09:23)
[2023-02-09] MEDS: amlodipine 5 mg Tablet PO (09:23)
--- NOTE | 2023-02-09 10:23 | P.PN_ITS ---
Subjective Subjective: Patient was seen and examined this morning shortness of breath has improved, bilateral lower extremity swelling has improved, hypokalemia has been corrected. Medications: Medication Review Details: Generic Name Dose Route Start Last Admin Trade Name Freq PRN Reason Stop Dose Admin Hydrocodone Bitart /Acetaminophen 1 tab 02/07/23 21:41 02/08/23 09:11 Hydrocodone-Acet aminophen 5-325 Mg Tablet PO 1 tab Q12H PRN Administration pain Albuterol/Ipratrop ium 3 ml 02/07/23 20:43 02/08/23 14:36 Ipratropium-Albu terol 3 Ml Neb INHALATION 3 ml Q6H HERMAN Administration Aspirin 81 mg 02/08/23 06:00 02/08/23 05:35 Aspirin 81 Mg Ec Tablet PO 81 mg QAM HERMAN Administration Budesonide 0.5 mg 02/08/23 09:00 02/08/23 08:25 Budesonide 0.5 M g/2 Ml Neb INHALATION 0.5 mg BID HERMNA Administration Citalopram Hydrobr omide 40 mg 02/08/23 09:00 02/08/23 09:10 Citalopram 20 Mg Tablet PO 40 mg DAILY HERMAN Administration Clopidogrel Bisulf ate 75 mg 02/08/23 06:00 02/08/23 05:35 Clopidogrel 75 M g Tablet PO 75 mg QAM HERMAN Administration Enoxaparin Sodium 40 mg 02/07/23 20:43 02/07/23 22:44 Enoxaparin 40 Mg /0.4 Ml Syringe SUBCUT 40 mg Q24H HERMAN Administration Furosemide 40 mg 02/08/23 07:00 02/08/23 06:25 Furosemide 10 Mg /Ml Sdv 4ml IVP 40 mg Q12H HERMAN Administration Ceftriaxone Sodium 1,000 mg/ 50 mls @ 100 mls/ hr 02/07/23 20:43 02/07/23 23:33 Sodium Chloride IV Infused Q24H HERMAN Infusion Protocol Azithromycin 500 m g/ Sodium 250 mls @ 250 mls /hr 02/07/23 20:43 02/08/23 00:52 Chloride IV Infused Q24H HERMAN Infusion Protocol Insulin Human Lisp ro 0 unit 02/07/23 21:00 02/08/23 12:09 Insulin Lispro 1 00 Unit/1 Ml SUBCUT 4 unit WM&BEDTIME HERMAN Administration Protocol Levetiracetam 250 mg 02/08/23 09:00 02/08/23 09:11 Levetiracetam 50 0 Mg Tablet PO 250 mg BID HERMAN Administration Lisinopril 20 mg 02/08/23 06:00 02/08/23 05:34 Lisinopril 20 Mg Tablet PO 20 mg QAM HERMAN Administration Mirtazapine 15 mg 02/08/23 09:00 02/08/23 09:10 Mirtazapine 15 M g Tablet PO 15 mg DAILY HERMAN Administration Non-Formulary Medi cation 24 mg 02/08/23 06:00 02/08/23 06:31 Galantamine PO Not Given QAM HERMAN Quetiapine Fumarat e 25 mg 02/07/23 20:43 02/08/23 09:11 Quetiapine 25 Mg Tablet PO 25 mg BID HERMAN Administration Vitals/I&O/Wt Last Vital Signs Temp 98.3 F 02/09/23 08:00 Pulse 104 H 02/09/23 08:00 Resp 16 02/09/23 08:00 BP 149/79 02/09/23 08:00 Pulse Ox 93 02/09/23 08:00 O2 Del Method Nasal Cannula 02/09/23 02:20 O2 Flow Rate 3 02/09/23 08:00 02/08/23 02/09/23 02/09/23 22:59 06:59 14:59 Intake Total 780 / 780 480 / 480 Output Total 400 / 500 500 / 1000 Balance 380 / 280 -500 / -220 480 / 480 Weight last 48 hrs Weight 50.439 kg Physical Exam HENMT: COMMON NORMALS: normocephalic and atraumatic HEAD & SCALP: normocephalic and atraumatic Resp: OTHER: Left upper lung field anteriorly crackles present, fine bilateral basal crackles present. Cardio: COMMON NORMALS: regular rate, regular rhythm, S1 normal heart sound present, S2 normal heart sound present, No gallops present (Cardio), No murmurs present (Cardio), No rub (Cardio) and Peripheral pulses 2+ throughout RATE: regular rate RHYTHM: regular rhythm HEART SOUNDS: S1 normal heart sound present and S2 normal heart sound present PERIPHERAL PULSES: Peripheral pulses 2+ throughout GI: COMMON NORMALS: Normal to inspection, nondistended, normoactive bowel sounds present, Soft to palpation, non-tender, No hepatosplenomegaly present and no masses AUSCULTATION: Yes normoactive bowel sounds PALPATION: Yes Soft to palpation and Yes No hepatosplenomegaly present RECTAL EXAM: deferred Extremity: COMMON NORMALS: no clubbing, cyanosis or edema and no pedal edema Data 02/09/23 11:03 02/09/23 11:03 Micro: Microbiology 02/07/23 18:45 Blood Culture - Preliminary Blood NEGATIVE TO DATE 02/07/23 18:17 Blood Culture - Preliminary Blood NEGATIVE TO DATE A&P Assessment and plan (1) Acute congestive heart failure: Patient came in with chief complaint of shortness of breath, bilateral lower extremity swelling, has crackles on exam, no JVD. proBNP 468. X-ray chest has shown: Increased interstitial marking likely secondary to edema, has also shown patchy basilar infiltrates. 2D echo.Grossly normal left ventricular size and systolic function.?Left candie tricular ejection fraction is estimated at 60 %. No diagnostic regional wall motion abnormality. Grade I diastolic ?dysfunction (abnormal relaxation filling pattern), normal to mildly elevated filling pressures. Was on Lasix 40 IV twice daily, has been switched to Lasix IV 40 daily. 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 Family is considering placing her in a residential care facility Plan History of seizure disorder. 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 Coding Level of Care Code Acute Code for [facility] Diagnoses Acute congestive heart failure I50.9 Pneumonia J18.9 Hypoxia R09.02 Alzheimer disease G30.9; F02.80
[2023-02-09 12:02] LABS: Glucose Point of Care 287 mg/dL (70-110)
[2023-02-09 12:04] LABS: Basophils % 0.3 %; Eosinophils # 0.1 10^3/uL (0.0-0.8); Eosinophils % 0.4 %; Hematocrit 40.6 % (37.0-47.0); Hemoglobin 12.6 g/dL (11.5-15.3); Lymphocytes # 0.7 10^3/uL (0.8-4.8); Lymphocytes % 5.7 %; Mean Corpuscular Hemoglobin 29.4 pg (28.0-34.0); Mean Corpuscular Volume 94.9 fl (81-99); Mean Platelet Volume 9.3 fL (7.4-10.4); Monocytes # 0.6 10^3/uL (0.2-0.9); Monocytes % 4.9 %; Neutrophils % 88.4 %; Nucleated Red Blood Cells % 0 %; Platelet Count 349 10^3/cmm (130-400); Red Blood Count 4.28 10^6/uL (4.1-5.3); Red Cell Distribution Width 15.5 % (12.1-15.1); White Blood Count 11.4 10^3/uL (4.0-10.0)
[2023-02-09 12:32] LABS: Alanine Aminotransferase 32 U/L (0-33); Albumin Level 3.8 g/dL (3.5-5.2); Alkaline Phosphatase 202 U/L (35-105); Anion Gap 16.3 (5-19); Aspartate Amino Transferase 25 U/L (0-32); Blood Urea Nitrogen 15 mg/dL (8-23); Calcium 8.9 mg/dL (8.5-10.5); Carbon Dioxide 32 mmol/L (22-29); Chloride 95 mmol/L (98-107); Globulin 2.7 g/dL (1.3-4.6); Glucose 211 mg/dL (65-115); Osmolality Calculated 297 mOsm/kg (285-295); Potassium 3.3 mmol/L (3.5-5.1); Sodium 140 mmol/L (136-145); Total Bilirubin 0.3 mg/dL (0.15-1.2); Total Protein 6.5 g/dL (6.6-8.7)
[2023-02-09] MEDS: lidocaine 1% 5 ML in potassium chloride premix 100 ML 26.25 ML IV (15:19)
[2023-02-09 16:50] LABS: Glucose Point of Care 161 mg/dL (70-110)
[2023-02-09] MEDS: budesonide 0.5 mg/2 mL Neb INHALATION (19:40)
[2023-02-09] MEDS: ropinirole 0.25 mg Tablet 0.5 MG PO (20:08)
[2023-02-09] MEDS: azithromycin 500 MG in sodium chloride 0.9% 250 ML 250 MG IV (20:08)
[2023-02-09] MEDS: enoxaparin 40 mg/0.4 mL Syringe SUBCUT (20:09)
[2023-02-09 20:57] LABS: Glucose Point of Care 353 mg/dL (70-110)
[2023-02-09] MEDS: cefTRIAXone 1,000 MG in sodium chloride 0.9% (plus) 50 ML 100 MG IV (21:27)
[2023-02-10] VITALS (15 sets, daily range): BP systolic 119–177; BP diastolic 70–82; PULSE 68–117; RESP 16–24; TEMP 36.3–36.6; O2SAT 85–98
[2023-02-10] MEDS: ipratropium-albuterol 3 mL Neb INHALATION ×4 (02:03→19:38)
[2023-02-10] MEDS: HYDROcodone-acetaminophen 5-325 mg Tablet 1 TAB PO (03:55)
[2023-02-10 05:17] LABS: Basophils # 0.1 10^3/uL (0.0-0.1); Basophils % 0.6 %; Eosinophils # 0.1 10^3/uL (0.0-0.8); Hemoglobin 11.5 g/dL (11.5-15.3); Lymphocytes # 0.6 10^3/uL (0.8-4.8); Lymphocytes % 5.7 %; Mean Corpuscular HGB Conc 31.1 g/dL (30.0-36.0); Mean Corpuscular Hemoglobin 29.9 pg (28.0-34.0); Mean Corpuscular Volume 96.4 fl (81-99); Mean Platelet Volume 9.2 fL (7.4-10.4); Monocytes # 0.6 10^3/uL (0.2-0.9); Monocytes % 6.3 %; Neutrophils # 8.44 10^3/uL (1.8-7.7); Neutrophils % 85.9 %; Nucleated Red Blood Cells % 0 %; Platelet Count 327 10^3/cmm (130-400); Red Blood Count 3.84 10^6/uL (4.1-5.3); Red Cell Distribution Width 15.5 % (12.1-15.1); White Blood Count 9.8 10^3/uL (4.0-10.0)
[2023-02-10 05:37] LABS: Alanine Aminotransferase 26 U/L (0-33); Albumin Level 3.3 g/dL (3.5-5.2); Alkaline Phosphatase 169 U/L (35-105); Anion Gap 13.6 (5-19); Aspartate Amino Transferase 20 U/L (0-32); Blood Urea Nitrogen 17 mg/dL (8-23); Calcium 8.5 mg/dL (8.5-10.5); Carbon Dioxide 28 mmol/L (22-29); Chloride 99 mmol/L (98-107); Globulin 2.4 g/dL (1.3-4.6); Glucose 135 mg/dL (65-115); Magnesium 1.7 mg/dL (1.7-2.3); Osmolality Calculated 288 mOsm/kg (285-295); Potassium 3.6 mmol/L (3.5-5.1); Sodium 137 mmol/L (136-145); Total Bilirubin 0.3 mg/dL (0.15-1.2); Total Protein 5.7 g/dL (6.6-8.7)
[2023-02-10] MEDS: aspirin 81 mg EC Tablet PO (05:44)
[2023-02-10] MEDS: lisinopril 20 mg Tablet PO (05:44)
[2023-02-10] MEDS: clopidogrel 75 mg Tablet PO (05:44)
[2023-02-10] MEDS: FUROsemide 10 mg/mL SDV 4mL 40 MG IVP (06:53)
[2023-02-10 06:55] LABS: Glucose Point of Care 160 mg/dL (70-110)
[2023-02-10] MEDS: budesonide 0.5 mg/2 mL Neb INHALATION ×2 (07:40→19:38)
[2023-02-10] MEDS: amlodipine 5 mg Tablet PO (08:07)
[2023-02-10] MEDS: levETIRAcetam 500 mg Tablet 250 MG PO ×2 (08:07→17:29)
[2023-02-10] MEDS: quetiapine 25 mg Tablet PO ×2 (08:07→17:29)
[2023-02-10] MEDS: insulin lispro 100 unit/1 mL SUBCUT ×4 (08:07→21:24)
[2023-02-10] MEDS: mirtazapine 15 mg Tablet PO (08:07)
[2023-02-10 11:45] LABS: Glucose Point of Care 230 mg/dL (70-110)
[2023-02-10] MEDS: lidocaine 5% Patch 1 PATCH TOPICAL (12:01)
--- NOTE | 2023-02-10 12:54 | PC.SOCIAL ---
IMM Update pg 2 of IMM updated and reviewed w/ patient and daughter uEla. Copy provided and copy dated, initialed and placed in chart.
[2023-02-10 16:58] LABS: Glucose Point of Care 163 mg/dL (70-110)
--- NOTE | 2023-02-10 17:04 | PM.PN ---
Subjective Subjective: Patient states that she feels clinically improving today. Denies any dyspnea. Currently on 2 L/min supplemental O2. Hemodynamically stable. Lower extremity edema is nearly resolved. Medications: Reviewed: Yes Medication Review Details: Generic Name Dose Route Start Last Admin Trade Name Freq PRN Reason Stop Dose Admin Hydrocodone Bitart /Acetaminophen 1 tab 02/07/23 21:41 02/08/23 09:11 Hydrocodone-Acet aminophen 5-325 Mg Tablet PO 1 tab Q12H PRN Administration pain Albuterol/Ipratrop ium 3 ml 02/07/23 20:43 02/08/23 14:36 Ipratropium-Albu terol 3 Ml Neb INHALATION 3 ml Q6H HERMAN Administration Aspirin 81 mg 02/08/23 06:00 02/08/23 05:35 Aspirin 81 Mg Ec Tablet PO 81 mg QAM HERMAN Administration Budesonide 0.5 mg 02/08/23 09:00 02/08/23 08:25 Budesonide 0.5 M g/2 Ml Neb INHALATION 0.5 mg BID HERMAN Administration Citalopram Hydrobr omide 40 mg 02/08/23 09:00 02/08/23 09:10 Citalopram 20 Mg Tablet PO 40 mg DAILY HERMAN Administration Clopidogrel Bisulf ate 75 mg 02/08/23 06:00 02/08/23 05:35 Clopidogrel 75 M g Tablet PO 75 mg QAM HERMAN Administration Enoxaparin Sodium 40 mg 02/07/23 20:43 02/07/23 22:44 Enoxaparin 40 Mg /0.4 Ml Syringe SUBCUT 40 mg Q24H HERMAN Administration Furosemide 40 mg 02/08/23 07:00 02/08/23 06:25 Furosemide 10 Mg /Ml Sdv 4ml IVP 40 mg Q12H HERMAN Administration Ceftriaxone Sodium 1,000 mg/ 50 mls @ 100 mls/ hr 02/07/23 20:43 02/07/23 23:33 Sodium Chloride IV Infused Q24H HERMAN Infusion Protocol Azithromycin 500 m g/ Sodium 250 mls @ 250 mls /hr 02/07/23 20:43 02/08/23 00:52 Chloride IV Infused Q24H HERMAN Infusion Protocol Insulin Human Lisp ro 0 unit 02/07/23 21:00 02/08/23 12:09 Insulin Lispro 1 00 Unit/1 Ml SUBCUT 4 unit WM&BEDTIME HERMAN Administration Protocol Levetiracetam 250 mg 02/08/23 09:00 02/08/23 09:11 Levetiracetam 50 0 Mg Tablet PO 250 mg BID HERMAN Administration Lisinopril 20 mg 02/08/23 06:00 02/08/23 05:34 Lisinopril 20 Mg Tablet PO 20 mg QAM HERMAN Administration Mirtazapine 15 mg 02/08/23 09:00 02/08/23 09:10 Mirtazapine 15 M g Tablet PO 15 mg DAILY HERMAN Administration Non-Formulary Medi cation 24 mg 02/08/23 06:00 02/08/23 06:31 Galantamine PO Not Given QAM HERMAN Quetiapine Fumarat e 25 mg 02/07/23 20:43 02/08/23 09:11 Quetiapine 25 Mg Tablet PO 25 mg BID HERMAN Administration Vitals/I&O/Wt Last Vital Signs Temp 97.4 F L 02/10/23 15:28 Pulse 105 H 02/10/23 15:28 Resp 16 02/10/23 15:28 BP 150/80 02/10/23 15:28 Pulse Ox 92 02/10/23 15:28 O2 Del Method Nasal Cannula 02/10/23 15:28 O2 Flow Rate 2 02/10/23 13:48 02/10/23 02/10/23 02/10/23 06:59 14:59 22:59 Intake Total 360 / 360 Balance 360 / 360 Weight last 48 hrs Weight 50.439 kg Physical Exam Narrative: General: No acute distress, AO x3 HEENT: PERRLA, pupils bilaterally equal and reactive, pallors not present Chest: Normal vesicular breath sounds, no added sounds, equal good air entry bilaterally CVS: S1-S2 regular, no murmurs, no tachycardia, no gallops, no rubs Abdomen: Soft, nontender, no organomegaly, bowel sounds present Neuro: No focal deficits, no facial deformity, AO x3, power 5/5 in all limbs Extremities: edema improving Data 02/10/23 04:36 02/10/23 04:36 Micro: Microbiology 02/09/23 03:43 Gram Stain - Final Sputum - Expectorated Sputum Sputum Culture - Preliminary A&P Assessment and plan (1) Acute congestive heart failure: Patient came in with chief complaint of shortness of breath, bilateral lower extremity swelling, has crackles on exam, no JVD. X-ray chest has shown: Increased interstitial marking likely secondary to edema, has also shown patchy basilar infiltrates. 2D echo.Grossly normal left ventricular size and systolic function.?Left ventricular ejection fraction is estimated at 60 %. No diagnostic regional wall motion abnormality. Grade I diastolic ?dysfunction (abnormal relaxation filling pattern), normal to mildly elevated filling pressures. 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 Family is considering placing her in a residential care facility Plan History of seizure disorder. 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
[2023-02-10 21:01] LABS: Glucose Point of Care 245 mg/dL (70-110)
[2023-02-10] MEDS: ropinirole 0.25 mg Tablet 0.5 MG PO (21:24)
[2023-02-10] MEDS: cefTRIAXone 1,000 MG in sodium chloride 0.9% (plus) 50 ML 100 MG IV (21:24)
[2023-02-10] MEDS: enoxaparin 40 mg/0.4 mL Syringe SUBCUT (21:24)
[2023-02-11] VITALS (7 sets, daily range): BP systolic 128–170; BP diastolic 67–76; PULSE 68–112; RESP 16–20; TEMP 36.4–37.3; O2SAT 92–97
[2023-02-11] MEDS: ipratropium-albuterol 3 mL Neb INHALATION ×2 (02:01→08:07)
[2023-02-11] MEDS: aspirin 81 mg EC Tablet PO (06:08)
[2023-02-11] MEDS: clopidogrel 75 mg Tablet PO (06:08)
[2023-02-11] MEDS: lisinopril 20 mg Tablet PO (06:08)
[2023-02-11] MEDS: HYDROcodone-acetaminophen 5-325 mg Tablet 1 TAB PO (06:10)
[2023-02-11 06:51] LABS: Glucose Point of Care 192 mg/dL (70-110)
[2023-02-11 07:36] LABS: Basophils # 0.1 10^3/uL (0.0-0.1); Basophils % 0.5 %; Eosinophils # 0.1 10^3/uL (0.0-0.8); Eosinophils % 1.1 %; Hemoglobin 12.1 g/dL (11.5-15.3); Lymphocytes # 0.5 10^3/uL (0.8-4.8); Lymphocytes % 4.6 %; Mean Corpuscular HGB Conc 30.3 g/dL (30.0-36.0); Mean Corpuscular Hemoglobin 28.9 pg (28.0-34.0); Mean Corpuscular Volume 95.5 fl (81-99); Mean Platelet Volume 8.9 fL (7.4-10.4); Monocytes # 0.5 10^3/uL (0.2-0.9); Monocytes % 4.5 %; Neutrophils # 10.17 10^3/uL (1.8-7.7); Nucleated Red Blood Cells % 0 %; Platelet Count 346 10^3/cmm (130-400); Red Blood Count 4.19 10^6/uL (4.1-5.3); Red Cell Distribution Width 15.1 % (12.1-15.1); White Blood Count 11.4 10^3/uL (4.0-10.0)
[2023-02-11] MEDS: budesonide 0.5 mg/2 mL Neb INHALATION (08:07)
[2023-02-11 08:08] LABS: Alanine Aminotransferase 30 U/L (0-33); Albumin Level 3.7 g/dL (3.5-5.2); Alkaline Phosphatase 191 U/L (35-105); Anion Gap 14.3 (5-19); Aspartate Amino Transferase 22 U/L (0-32); Blood Urea Nitrogen 16 mg/dL (8-23); Carbon Dioxide 30 mmol/L (22-29); Chloride 97 mmol/L (98-107); Globulin 2.7 g/dL (1.3-4.6); Glucose 194 mg/dL (65-115); Osmolality Calculated 292 mOsm/kg (285-295); Potassium 3.3 mmol/L (3.5-5.1); Sodium 138 mmol/L (136-145); Total Bilirubin 0.4 mg/dL (0.15-1.2); Total Protein 6.4 g/dL (6.6-8.7)
[2023-02-11] MEDS: quetiapine 25 mg Tablet PO (08:34)
[2023-02-11] MEDS: citalopram 20 mg Tablet PO (08:34)
[2023-02-11] MEDS: amlodipine 5 mg Tablet PO (08:34)
[2023-02-11] MEDS: levETIRAcetam 500 mg Tablet 250 MG PO (08:34)
[2023-02-11] MEDS: insulin lispro 100 unit/1 mL SUBCUT ×2 (08:34→13:14)
[2023-02-11] MEDS: FUROsemide 40 mg Tablet PO (08:34)
[2023-02-11] MEDS: mirtazapine 15 mg Tablet PO (08:34)
[2023-02-11 10:00] LABS: SARS Covid-2 Antigen Negative (Negative)
[2023-02-11 12:16] LABS: Glucose Point of Care 306 mg/dL (70-110)
--- NOTE | 2023-02-11 14:23 | PC.NURSE ---
Report given to DANIELLA Andrews at [facility] via phone at 2081.
--- NOTE | 2023-02-11 16:26 | P.DS_ITS ---
Discharge Providers Date of Admission: 02/07/23 20:14 Date of Discharge: February 11, 2023 Attending Provider at Admission: Elpidio Cunningham MD Attending Provider at Discharge: Portia Quinones MD Primary Care Provider: Coco Flores MD Diagnoses at Discharge Discharge Diagnosis (1) Acute congestive heart failure: Status: Acute (2) Pneumonia: Status: Acute (3) Hypoxia: Status: Acute (4) Alzheimer disease: Status: Acute Reason for Visit Reason for Visit: sob, diarrhea 2xweeks Hospital Course Hospital Course Maria M Klein is a 77 year old female with dementia who presented to the hospital with increasing shortness of breath over the last 2 to 3 weeks, getting worse.? She has had some lower extremity edema. Hospital course as follows: (1) Acute congestive heart failure: Patient came in with chief complaint of shortness of breath, bilateral lower extremity swelling, has crackles on exam, no JVD. X-ray chest has shown: Increased interstitial marking likely secondary to edema, has also shown patchy basilar infiltrates. 2D echo.Grossly normal left ventricular size and systolic function.?Left ventricular ejection fraction is estimated at 60 %. No diagnostic regional wall motion abnormality. Grade I diastolic ?dysfunction (abnormal relaxation filling pattern), normal to mildly elevated filling pressures. She received treatment with Lasix 40 IV twice daily, changed to po lasix today 40mg daily at discharge. (2) Pneumonia: CXR with bilateral small patchy basilar infiltrates She recieved treatment with Ceftraixone x 5 days and azithormycin x 3 days Blood culture: NTD COVID PCR negative (3) Hypoxia: Needing supplemental 02 at 2lpm (4) Alzheimer disease: Significant dementia.? Patient transitioned to SNF after discussion with family Physical Exam Narrative: General: No acute distress, AO x3 HEENT: PERRLA, pupils bilaterally equal and reactive, pallors not present Chest: Normal vesicular breath sounds, no added sounds, equal good air entry bilaterally CVS: S1-S2 regular, no murmurs, no tachycardia, no gallops, no rubs Abdomen: Soft, nontender, no organomegaly, bowel sounds present Neuro: No focal deficits, no facial deformity, AO x3, power 5/5 in all limbs Discharge Data Studies Completed and Pending Completed Studies During Hospitalization Category Date Time Status XR chest 1V portable [id number] Stat Exams 02/07/23 17:32 Completed CV. echo complete* [id number] Routine Ultrasound 02/08/23 20:43 Completed Pending at discharge Category Date Time Status Blood Culture Stat Lab 02/07/23 18:45 Results Radiology Impressions Chest X-Ray 02/07/23 17:32 IMPRESSION: 1. There are diffuse increased interstitial markings along with bilateral small patchy basilar infiltrates. These findings were not present on the prior exam. 2. There is a small left pleural effusion. Laboratory Results WBC 11.4 10^3/uL (4.0-10.0) H 02/11/23 07:20 RBC 4.19 10^6/uL (4.1-5.3) 02/11/23 07:20 Hgb 12.1 g/dL (11.5-15.3) 02/11/23 07:20 Hct 40.0 % (37.0-47.0) 02/11/23 07:20 MCV 95.5 fl (81-99) 02/11/23 07:20 MCH 28.9 pg (28.0-34.0) 02/11/23 07:20 MCHC 30.3 g/dL (30.0-36.0) 02/11/23 07:20 RDW 15.1 % (12.1-15.1) 02/11/23 07:20 Plt Count 346 10^3/cmm (130-400) 02/11/23 07:20 MPV 8.9 fL (7.4-10.4) 02/11/23 07:20 Neut % (Auto) 89.0 % 02/11/23 07:20 Lymph % (Auto) 4.6 % 02/11/23 07:20 [place] % (Auto) 4.5 % 02/11/23 07:20 Eos % (Auto) 1.1 % 02/11/23 07:20 Baso % (Auto) 0.5 % 02/11/23 07:20 Neut # (Auto) 10.17 10^3/uL (1.8-7.7) H 02/11/23 07:20 Lymph # (Auto) 0.5 10^3/uL (0.8-4.8) L 02/11/23 07:20 [place] # (Auto) 0.5 10^3/uL (0.2-0.9) 02/11/23 07:20 Eos # (Auto) 0.1 10^3/uL (0.0-0.8) 02/11/23 07:20 Baso # (Auto) 0.1 10^3/uL (0.0-0.1) 02/11/23 07:20 Nucleated RBC % (auto) 0 % 02/11/23 07:20 Nucleated RBCs # 0.0 /100WBC 02/11/23 07:20 Specimen Type Arterial 02/07/23 17:36 Sample Site Radial, right 02/07/23 17:36 ABG pH 7.48 (7.35-7.45) H 02/07/23 17:36 ABG pCO2 43.9 mmHg (35-45) 02/07/23 17:36 ABG pO2 86.3 mmHg (80.0-100.0) 02/07/23 17:36 ABG HCO3 32.3 mmol/L (22-26) H 02/07/23 17:36 ABG Base Excess 7.9 mmol/L (-2.0-2.0) H 02/07/23 17:36 [place] Test Pos 02/07/23 17:36 Hematocrit 33.6 % (37-47) L 02/07/23 17:36 Hgb O2 Saturation 95.3 % (95-100) 02/07/23 17:36 Carboxyhemoglobin 2.0 %THgb (0.4-20.1) 02/07/23 17:36 Methemoglobin 0.6 % (0.4-1.5) 02/07/23 17:36 Total Hemoglobin 11.0 g/dL (12-16) L 02/07/23 17:36 O2 Delivery Device Room air 02/07/23 17:36 Management Analyst ID [id number] 02/07/23 17:36 Sodium 138 mmol/L (136-145) 02/11/23 07:20 Potassium 3.3 mmol/L (3.5-5.1) L 02/11/23 07:20 Chloride 97 mmol/L (98-107) L 02/11/23 07:20 Carbon Dioxide 30 mmol/L (22-29) H 02/11/23 07:20 Anion Gap 14.3 (5-19) 02/11/23 07:20 BUN 16 mg/dL (8-23) 02/11/23 07:20 Creatinine 0.5 mg/dL (0.5-0.9) 02/11/23 07:20 GFR Calculation Not Reportable 02/11/23 07:20 Glucose 194 mg/dL (65-115) H 02/11/23 07:20 POC Glucose 306 mg/dL (70-110) H 02/11/23 12:12 Calculated Osmolality 292 mOsm/kg (285-295) 02/11/23 07:20 Lactic Acid 1.4 mmol/L (0.5-2.2) 02/07/23 17:13 Calcium 9.0 mg/dL (8.5-10.5) 02/11/23 07:20 Magnesium 1.7 mg/dL (1.7-2.3) 02/10/23 04:36 Total Bilirubin 0.4 mg/dL (0.15-1.2) 02/11/23 07:20 AST 22 U/L (0-32) 02/11/23 07:20 ALT 30 U/L (0-33) 02/11/23 07:20 Alkaline Phosphatase 191 U/L (35-105) H 02/11/23 07:20 NT-Pro-B Natriuret Pep 468 pg/mL (0-450) H 02/07/23 17:13 Total Protein 6.4 g/dL (6.6-8.7) L 02/11/23 07:20 Albumin 3.7 g/dL (3.5-5.2) 02/11/23 07:20 Globulin 2.7 g/dL (1.3-4.6) 02/11/23 07:20 Procalcitonin 0.07 ng/mL (0-0.5) 02/07/23 17:13 TSH 1.15 uIU/mL (0.27-4.20) 02/07/23 17:13 Urine Color Yellow (Yellow) 02/08/23 09:23 Urine Appearance Clear (CLEAR) 02/08/23 09:23 Urine pH 5 (5-7) 02/08/23 09:23 Ur Specific [place] 1.015 (1.005-1.030) 02/08/23 09:23 Urine Protein Neg (Negative) 02/08/23 09:23 Urine Glucose (UA) Norm (Normal) 02/08/23 09:23 Urine Ketones Negative (Negative) 02/08/23 09:23 Urine Blood 2+ (Negative) H 02/08/23 09:23 Urine Nitrate Negative (Negative) 02/08/23 09:23 Urine Bilirubin Neg (Negative) 02/08/23 09:23 Urine Urobilinogen Norm mg/dL (Negative) 02/08/23 09:23 Ur Leukocyte Esterase Negative (Negative) 02/08/23 09:23 Urine RBC 0-4 /hpf (0-2) H 02/08/23 09:23 Urine WBC None /hpf (0-5) 02/08/23 09:23 Ur Squamous Epith Cells 0-4 /hpf (0-5) H 02/08/23 09:23 Amorphous Sediment Not Reportable 02/08/23 09:23 Urine Bacteria None /hpf (NONE) 02/08/23 09:23 Hyaline Casts Rare /lpf 02/08/23 09:23 Coronavirus 229E (PCR) Not detected (NOT DETECT) 02/07/23 19:55 SARS-CoV-2 (PCR) Not detected (NOT DETECT) 02/07/23 19:55 SARS-CoV-2 Ag (Rapid) Negative (Negative) 02/11/23 07:56 Vitals Last Vital Signs Temp 98.5 F 02/11/23 11:43 Pulse 109 H 02/11/23 11:43 Resp 18 02/11/23 11:43 BP 154/71 02/11/23 11:43 Pulse Ox 92 02/11/23 11:43 O2 Del Method Nasal Cannula 02/11/23 11:43 O2 Flow Rate 2 02/11/23 08:07 Discharge Plan Discharge Patient Disposition: Xfer SNF Condition: Stable Prescriptions: New furosemide 40 mg Tablet 40 mg PO DAILY@0800 30 Days Qty: 30 0RF Continued aspirin [Adult Aspirin Regimen] 81 mg tablet,delayed release (DR/EC) 81 mg PO QAM (DME) FreeStyle Lite Strips Strip See Rx Instructions .Route Qty: 100 3RF Rx Instructions: to use once daily in freestyle meter 90 day supply (DME) blood-glucose meter [FreeStyle Lite Meter] Kit See Rx Instructions .Route Qty: 1 0RF Rx Instructions: use once daily to check blood sugar citalopram 20 mg tablet 40 mg PO DAILY Qty: 180 3RF Rx Instructions: Instructed by Dr. Flores on 02/06/23 to hold for several days then decrease dose to 20mg daily galantamine 24 mg capsule,ext rel. pellets 24 hr 24 mg PO QAM Qty: 90 3RF Rx Instructions: administer with breakfast 340B levetiracetam [Keppra XR] 500 mg tablet extended release 24 hr 500 mg PO DAILY Qty: 90 3RF Rx Instructions: 340 be Please refill as a 90-day supply with 3 refills quetiapine 25 mg tablet See Rx Instructions .ROUTE .COMPLEX Qty: 180 3RF Dose Instruction: TAKE 1 TABLET BY MOUTH TWICE DAILY Rx Instructions: TAKE 1 TABLET BY MOUTH TWICE DAILY sitagliptin phosphate 100 mg tablet 50 mg PO DAILY Qty: 60 3RF albuterol sulfate [Ventolin HFA] 90 mcg/actuation HFA aerosol inhaler 2 puff inhalation Q6H PRN (Reason: shortness of breath or wheezing) 30 Days Qty: 18 11RF clopidogrel 75 mg tablet 75 mg PO QAM 90 Days Qty: 90 3RF lisinopril 20 mg tablet 20 mg PO QAM 90 Days Qty: 90 2RF alprazolam 0.5 mg tablet 0.5 mg PO BID PRN (Reason: Anxiety) Qty: 60 3RF Levemir FlexPen 100 unit/mL (3 mL) insulin pen 100 unit SUBCUT DAILY Qty: 15 3RF Spiriva with HandiHaler 18 mcg capsule, w/inhalation device 1 cap inhalation DAILY Qty: 30 5RF hydrocodone-acetaminophen 5-325 mg tablet 1 tab PO Q12H PRN (Reason: pain) 30 Days Qty: 60 0RF celecoxib [Celebrex] 200 mg capsule 200 mg PO BID Qty: 60 2RF mirtazapine 15 mg tablet 15 mg PO DAILY Qty: 30 1RF Women's 50 Plus Daily Formula 400 mcg-500 mg calcium-20 mcg Tablet 1 tab PO DAILY (DME) lancet-gluc test strip-needles Combo Pack See Rx Instructions .Route Qty: 300 0RF Rx Instructions: As directed insulin lispro [Humalog U-100 Insulin] 100 unit/mL solution 2 unit SUBCUT AC Qty: 10 5RF amlodipine 2.5 mg tablet 2.5 mg PO BID Discharge Orders: Discharge Order (Routine); Ordered 02/11/23 Ordered By: Portia Quinones Other Ambulatory Orders: DME: Hospital Bed (Order) Location: None Selected Ordered By: Donald Yates Referrals: [facility] [Outside] Coco Flores MD [Primary Care Provider] - Discharge Diet: Usual diet Discharge Activity: Resume usual activity Patient Instructions: Opioid Safety Discharge Attestations Time Spent in Discharge Care*: greater than 30 min Quality Metrics Clinical Quality Measures [ No reported AMI, CVA or VTE this stay] Coding Level of Care Code Acute Code for [facility] Diagnoses Acute congestive heart failure I50.9 Pneumonia J18.9 Hypoxia R09.02 Alzheimer disease G30.9; F02.80
== END 2023-02-11 14:56 | disposition skilled nursing facility (03) | DRG 291 ==
LOC: ER 19:35 → MEDSURG 20:15
PROVIDERS: Internal Medicine; Admitting Provider Internal Medicine; Emergency Provider Family Medicine; PCP Family Medicine; Visit Provider Student in an Organized Health Care Education/Training Program
DX: I11.0 Hypertensive heart disease with heart failure (principal); I50.31 Acute diastolic (congestive) heart failure; J18.9 Pneumonia, unspecified organism; J44.0 Chronic obstructive pulmonary disease with (acute) lower respiratory infection; G30.9 Alzheimer's disease, unspecified; F02.80 Dementia in other diseases classified elsewhere, unspecified severity, without behavioral disturbance, psychotic disturbance, mood disturbance, and anxiety; Z79.82 Long term (current) use of aspirin; Z79.51 Long term (current) use of inhaled steroids; Z79.02 Long term (current) use of antithrombotics/antiplatelets; Z79.4 Long term (current) use of insulin; F41.9 Anxiety disorder, unspecified; F32.A Depression, unspecified; E11.9 Type 2 diabetes mellitus without complications; G40.409 Other generalized epilepsy and epileptic syndromes, not intractable, without status epilepticus; Z86.73 Personal history of transient ischemic attack (TIA), and cerebral infarction without residual deficits; Z87.891 Personal history of nicotine dependence; E78.00 Pure hypercholesterolemia, unspecified; E87.6 Hypokalemia
CPT/HCPCS: 36415; 36416; 36600; 71045; 80053; 81001; 82805; 82962; 83605; 83735; 83880; 84145; 84443; 85025; 87040; 87070; 87205; 87426; 87635; 92523; 92526; 92610; 93005; 93306; 94640; 96365; 96372; 96375; 97161; 97165; 97530; 97535; 99285; J0360; J0456; J0696; J1650; J1815; J1940; J2543; J3475; J3480; J7050; J7626; Q3014

== ENCOUNTER 2023-02-20 10:09 | Inpatient (IN) | payer MEDICARE, SELFPAY ==
[2023-02-20] VITALS (51 sets, daily range): BP systolic 79–145; BP diastolic 49–98; PULSE 68–119; RESP 1–30; TEMP 36.6; O2SAT 90–100
--- NOTE | 2023-02-20 10:13 | ECG_ITS ---
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 Measurements Intervals [place] Rate: 118 P: 61 NV: 166 QRS: 59 QRSD: 81 T: 41 QT: 304 QTc: 427 Interpretive Statements SINUS TACHYCARDIA POSSIBLE LEFT ATRIAL ENLARGEMENT [-0.1mV P-WAVE IN V1/V2] MINIMAL ST DEPRESSION [0.025+ mV ST DEPRESSION] ABNORMAL RHYTHM ECG Compared to ECG 02/07/2023 20:12:09 ST (T wave) deviation now present Sinus rhythm no longer present Electronically Signed On 02-20-2023 16:08:26 CDT by Darwin Rosas M.D. [email or web address]
--- NOTE | 2023-02-20 10:16 | CT_ITS ---
WS: [id number] CT HEAD NONCONTRAST HISTORY: AMS TECHNIQUE: Contiguous axial imaging performed through the brain in 2.5 mm imaging. Bone and soft tiss ue windows. Sagittal and coronal reformats reviewed. All CT scans at [facility] use at least one of these dose optimization techniques: automated exposure control; mA and/or kV adjustment per pa tient size (includes targeted exams where dose is matched to clinical indication); or iterative recon struction. DLP: 1051.34 mGy.cm COMPARISON: 08/23/2022 No acute intracranial hemorrhage, midline shift or mass effect. Mild atrophy. There is extensive confluent low attenuation throughout the white matter with additiona l bilateral basal ganglia lacunar infarcts. Findings are all stable as compared to the most recent ex aminations. Ventricles: Normal size with no hydrocephalus. Paranasal sinuses: As visualized are clear. Mastoid air cells: Well pneumatized. Calvarium and scalp: Skull is intact with no soft tissue edema or swelling. CT/CT head wo con* [id number] IMPRESSION: 1. No acute intracranial hemorrhage or edema. 2. Advanced small vessel ischemic changes throughout the white matter with janey ateral lacunar infarcts. No interval change.
--- NOTE | 2023-02-20 10:16 | XR_ITS ---
WS: [id number] PORTABLE CHEST HISTORY: dyspnea/cough COMPARISON: 02/07/2023 Bilateral interstitial thickening and pulmonary opacifications. Greater areas of opacification in the lower RIGHT lung. These have progressed since 02/07/2023. Small bilateral pleural effusions. Cardiac size: Normal. Mediastinum/Aorta: Mild atherosclerosis aorta. Mild widening of the mediastinum due to pulmonary eder estion. No osseous abnormality seen. XR/XR chest 1V portable [id number] IMPRESSION: 1. Findings most consistent with pulmonary edema. Superimposed pneumonia in th e RIGHT lower lobe is not excluded due to increasing consolidation. 2. Small bilateral pleural effusions.
[2023-02-20 10:20] LABS: ABG PCO2 63.8 mmHg (35-45); ABG PH Result 7.26 (7.35-7.45); Alveolar-Arterial Oxygen Gradi 47.6 mmHg (5-10); Arterial Blood Gas Hematocrit 37.1 % (37-47); Blood Gas Allen Test Pos; Blood Gas Operator Identificat MONRO; Blood Gas Sample Site Radial, right; Blood Gas Sample Type Arterial; Carboxyhemoglobin 1.8 %THgb (0.4-20.1); HCO3 ABG 28.4 mmol/L (22-26); HGB O2 Sat 98.5 % (95-100); Ionized Calcium Level - ABG 1.4 mmol/L (1.1-1.4); Methemoglobin 0.5 % (0.4-1.5); Oxygen Device NRB; Oxygen Saturation ABG > 100.0; Potassium Level - ABG 5.1 mmol/L (3.5-5.0); Total Hemoglobin 12.1 g/dL (12-16)
[2023-02-20] MEDS: sodium chloride 0.9% 500 ML IV (11:14)
--- NOTE | 2023-02-20 11:23 | PC.PHAR ---
[facility] MED LIST
[2023-02-20 11:24] LABS: Basophils % 0.2 %; Eosinophils % 0.1 %; Hematocrit 37.9 % (37.0-47.0); Hemoglobin 11.4 g/dL (11.5-15.3); Lymphocytes # 0.3 10^3/uL (0.8-4.8); Mean Corpuscular HGB Conc 30.1 g/dL (30.0-36.0); Mean Corpuscular Hemoglobin 30.4 pg (28.0-34.0); Mean Corpuscular Volume 101.1 fl (81-99); Mean Platelet Volume 9.3 fL (7.4-10.4); Monocytes # 0.4 10^3/uL (0.2-0.9); Monocytes % 2.6 %; Neutrophils # 13.99 10^3/uL (1.8-7.7); Neutrophils % 94.5 %; Nucleated Red Blood Cells % 0 %; Platelet Count 411 10^3/cmm (130-400); Red Blood Count 3.75 10^6/uL (4.1-5.3); Red Cell Distribution Width 14.7 % (12.1-15.1); White Blood Count 14.8 10^3/uL (4.0-10.0)
[2023-02-20 11:33] LABS: Add Urine Microscopic? NO; Charge for UA Resulting for Rev
[2023-02-20 11:37] LABS: Ketone (Acetest) Serum Positive (Negative)
[2023-02-20 11:37] LABS: Bilirubin Urine Neg (Negative); Blood Urine Neg (Negative); Glucose Urine UA Norm (Normal); Ketones Urine Negative (Negative); Leukocyte Esterase Urine Negative (Negative); Nitrate Urine Negative (Negative); Protein Urine Neg (Negative); Specific Gravity, Urine 1.025 (1.005-1.030); Urine Appearance Clear (CLEAR); Urine Color Dark yellow (Yellow); Urobilinogen Urine Norm (Negative); pH Urine 5 (5-7)
[2023-02-20 11:41] LABS: Lactic Sepsis W/Reflex 0.9 mmol/L (0.5-2.2)
[2023-02-20 11:55] LABS: Alanine Aminotransferase 73 U/L (0-33); Albumin Level 3.2 g/dL (3.5-5.2); Alkaline Phosphatase 262 U/L (35-105); Anion Gap 16.2 (5-19); Aspartate Amino Transferase 60 U/L (0-32); Blood Urea Nitrogen 41 mg/dL (8-23); Calcium 8.9 mg/dL (8.5-10.5); Carbon Dioxide 26 mmol/L (22-29); Chloride 103 mmol/L (98-107); Creatine Phosphokinase 144 U/L (26-192); Globulin 2.4 g/dL (1.3-4.6); Glucose 186 mg/dL (65-115); Lipase 86 U/L (13-60); NT Pro B Type Natriuretic Pept 29072 pg/mL (0-450); Osmolality Calculated 305 mOsm/kg (285-295); Potassium 5.2 mmol/L (3.5-5.1); Sodium 140 mmol/L (136-145); Total Bilirubin 0.2 mg/dL (0.15-1.2); Total Protein 5.6 g/dL (6.6-8.7); Troponin(5th) Baseline 175 ng/L (0-10)
--- NOTE | 2023-02-20 12:26 | ECG_ITS ---
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 Measurements Intervals [place] Rate: 104 P: 61 NJ: 171 QRS: 60 QRSD: 80 T: 39 QT: 314 QTc: 414 Interpretive Statements SINUS TACHYCARDIA LEFT ATRIAL ENLARGEMENT [-0.15mV P-WAVE IN V1/V2] POSSIBLE ANTERIOR MYOCARDIAL INFARCTION , OF INDETERMINATE AGE [30 ms Q WAVE IN V3/V4, OR R < 0.2 mV IN V4] Compared to ECG 02/20/2023 10:13:33 Myocardial infarct finding now present ST (T wave) deviation no longer present Electronically Signed On 02-20-2023 16:07:59 CDT by Darwin Rosas M.D. [id number]
--- NOTE | 2023-02-20 12:40 | ED_ITS ---
HPI - Altered Mental Status General: Chief Complaint: Altered Mental Status Stated Complaint: sob Time Seen by Provider: 02/20/23 10:16 Source: family and EMS Mode of arrival: EMS History of Present Illness: MD complaint: altered mental status and confusion [facility] ED PFSH: Medical History Alzheimer disease Alzheimer's disease Anxiety Chronic obstructive pulmonary disease Depression Diabetes DKA (diabetic ketoacidosis) Generalized epilepsy History of stroke History of tobacco abuse Hypercholesteremia Hypertension Hyponatremia Surgical History History of tonsillectomy History of total hysterectomy Social History Smoking and tobacco status: former smoker Quit status (tobacco): has quit using tobacco Year quit tobacco: 2019 2 PACK PER DAY X 58 Alcohol intake: never Substance/Drug Use: never Course Vital Signs: Vital signs: Vital Signs Temperature 98.4 F 02/24/23 08:15 Pulse Rate 0 L 02/24/23 20:45 Respiratory Rate 0 L 02/24/23 20:45 Blood Pressure 52/37 02/24/23 20:30 Pulse Oximetry 0 L 02/24/23 20:45 Oxygen Delivery Me thod Room Air 02/24/23 20:30 Oxygen Flow Rate 6 02/24/23 03:30 Fraction of Inspir ed Oxygen 30 02/24/23 12:00 MDM - Altered Mental Status Lab Data 02/24/23 03:25 02/24/23 03:[address] 02/20/23 10:16 IMPRESSION: 1. No acute intracranial hemorrhage or edema. 2. Advanced small vessel ischemic changes throughout the white matter with bilateral lacunar infarcts. No interval change. Chest CTA 02/21/23 09:11 IMPRESSION: 1. No central or proximal pulmonary artery emboli. 2. Moderate bilateral layering pleural effusions. 3. Multifocal pulmonary opacifications and spiculated nodules. Differential includes pneumonia, septic emboli and metastatic disease. Recommend follow-up chest CT with IV contrast after treatment for patient's acute presentation. 4. Diffuse soft tissue anasarca. 5. Soft tissue mass centered in the expected location of the celiac axis, pancreatic head and proximal body. Mass measures 6.1 x 4.4 cm. Differential i ncludes lymphadenopathy and pancreatic mass. Recommend follow-up CT abdomen and pelvis with IV and oral contrast as patient's condition permits. Recommend delay of at least 24 hours before additional IV contrast is given. Chest X-Ray 02/23/23 06:00 IMPRESSION: 1. Pulmonary vascular congestion. 2. Interval worsening of bilateral pleuroparenchymal disease. Abdomen/Pelvis CT 02/23/23 07:52 IMPRESSION: 1. Moderate to large bilateral pleural effusions with compressive atelectasis. 2. Multiple pulmonary nodules of varying size worrisome for metastatic disease. Inflammatory/infectious etiologies could give a similar appearance such as septic emboli. 3. A small volume of intra-abdominal ascites is present. 4. Fluid prominence in the colon with dilated small and large bowel loops could indicate prominent secretions due to infectious/inflammatory enteritis/colitis. 5. Cholelithiasis is present without cholecystitis. No gallbladder wall thickening or pericholecystic fluid collection. COMMENTS: Consistent with the [employer]'s Incidental Findings Committee white paper (J Am Jordi Radiol 2018): Any incidental renal lesion less than 1 cm or classified as too small to characterize, or any incidental cystic renal lesion characterized as simple-appearing, is likely benign. No follow-up imaging is recommended for these lesions per consensus recommendations based on imaging criteria. Laboratory Results WBC 14.8 10^3/uL (4.0-10.0) H 02/20/23 11:17 RBC 3.75 10^6/uL (4.1-5.3) L 02/20/23 11:17 Hgb 11.4 g/dL (11.5-15.3) L 02/20/23 11:17 Hct 37.9 % (37.0-47.0) 02/20/23 11:17 MCV 101.1 fl (81-99) H 02/20/23 11:17 MCH 30.4 pg (28.0-34.0) 02/20/23 11:17 MCHC 30.1 g/dL (30.0-36.0) 02/20/23 11:17 RDW 14.7 % (12.1-15.1) 02/20/23 11:17 Plt Count 411 10^3/cmm (130-400) H 02/20/23 11:17 MPV 9.3 fL (7.4-10.4) 02/20/23 11:17 Neut % (Auto) 94.5 % 02/20/23 11:17 Lymph % (Auto) 2.0 % 02/20/23 11:17 Ballard % (Auto) 2.6 % 02/20/23 11:17 Eos % (Auto) 0.1 % 02/20/23 11:17 Baso % (Auto) 0.2 % 02/20/23 11:17 Neut # (Auto) 13.99 10^3/uL (1.8-7.7) H 02/20/23 11:17 Lymph # (Auto) 0.3 10^3/uL (0.8-4.8) L 02/20/23 11:17 Ballard # (Auto) 0.4 10^3/uL (0.2-0.9) 02/20/23 11:17 Eos # (Auto) 0.0 10^3/uL (0.0-0.8) 02/20/23 11:17 Baso # (Auto) 0.0 10^3/uL (0.0-0.1) 02/20/23 11:17 Nucleated RBC % (auto) 0 % 02/20/23 11:17 Nucleated RBCs # 0.0 /100WBC 02/20/23 11:17 D-Dimer 6.42 ug/mIFEU (0-0.59) H 02/20/23 11:17 Specimen Type Arterial 02/20/23 13:02 Sample Site Radial, right 02/20/23 13:02 ABG pH 7.27 (7.35-7.45) L 02/20/23 13:02 ABG pCO2 60.7 mmHg (35-45) H* 02/20/23 13:02 ABG pO2 84.6 mmHg (80.0-100.0) 02/20/23 13:02 ABG HCO3 28.1 mmol/L (22-26) H 02/20/23 13:02 ABG O2 Saturation > 100.0 02/20/23 10:06 ABG Base Excess 0.2 mmol/L (-2.0-2.0) 02/20/23 13:02 [place] Test Pos 02/20/23 13:02 A-a O2 Gradient 47.6 mmHg (5-10) H 02/20/23 10:06 Hematocrit 35.4 % (37-47) L 02/20/23 13:02 Hgb O2 Saturation 98.5 % (95-100) 02/20/23 10:06 Carboxyhemoglobin 1.8 %THgb (0.4-20.1) 02/20/23 10:06 Methemoglobin 0.5 % (0.4-1.5) 02/20/23 10:06 Total Hemoglobin 12.1 g/dL (12-16) 02/20/23 10:06 Sodium 140.0 mmol/L (131-143) 02/20/23 10:06 Potassium 5.1 mmol/L (3.5-5.0) H 02/20/23 10:06 Glucose 180.0 mg/dL (70-115) H 02/20/23 10:06 Ionized Calcium 1.4 mmol/L (1.1-1.4) 02/20/23 10:06 O2 Delivery Device Bipap 02/20/23 13:02 O2 Liters/Min 15.0 % 02/20/23 10:06 FiO2 35.0 % 02/20/23 13:02 Rubber Roller Grinder Operator ID [place] 02/20/23 13:02 Sodium 140 mmol/L (136-145) 02/20/23 11:17 Potassium 5.2 mmol/L (3.5-5.1) H 02/20/23 11:17 Chloride 103 mmol/L (98-107) 02/20/23 11:17 Carbon Dioxide 26 mmol/L (22-29) 02/20/23 11:17 Anion Gap 16.2 (5-19) 02/20/23 11:17 BUN 41 mg/dL (8-23) H 02/20/23 11:17 Creatinine 1.6 mg/dL (0.5-0.9) H 02/20/23 11:17 GFR Calculation Not Reportable 02/20/23 11:17 Glucose 186 mg/dL (65-115) H 02/20/23 11:17 Calculated Osmolality 305 mOsm/kg (285-295) H 02/20/23 11:17 Lactic Acid 0.9 mmol/L (0.5-2.2) 02/20/23 11:17 Calcium 8.9 mg/dL (8.5-10.5) 02/20/23 11:17 Magnesium 2.0 mg/dL (1.7-2.3) 02/20/23 11:17 Total Bilirubin 0.2 mg/dL (0.15-1.2) 02/20/23 11:17 AST 60 U/L (0-32) H 02/20/23 11:17 ALT 73 U/L (0-33) H 02/20/23 11:17 Alkaline Phosphatase 262 U/L (35-105) H 02/20/23 11:17 Creatine Kinase 144 U/L (26-192) 02/20/23 11:17 Troponin T Baseline 175 ng/L (0-10) H* 02/20/23 11:17 Troponin T 120 Minute 166.1 ng/L (0-10) H 02/20/23 13:14 Delta Troponin T -8.9 ABS# (0-10) L 02/20/23 13:14 NT-Pro-B Natriuret Pep 44775 pg/mL (0-450) H 02/20/23 11:17 Total Protein 5.6 g/dL (6.6-8.7) L 02/20/23 11:17 Albumin 3.2 g/dL (3.5-5.2) L 02/20/23 11:17 Globulin 2.4 g/dL (1.3-4.6) 02/20/23 11:17 Lipase 86 U/L (13-60) H 02/20/23 11:17 Vitamin B12 1790 pg/mL (232-1245) H 02/20/23 13:14 Procalcitonin 0.18 ng/mL (0-0.5) 02/20/23 11:17 Urine Color Dark yellow (Yellow) 02/20/23 11:25 Urine Appearance Clear (CLEAR) 02/20/23 11:25 Urine pH 5 (5-7) 02/20/23 11:25 Ur Specific [place] 1.025 (1.005-1.030) 02/20/23 11:25 Urine Protein Neg (Negative) 02/20/23 11:25 Urine Glucose (UA) Norm (Normal) 02/20/23 11:25 Urine Ketones Negative (Negative) 02/20/23 11:25 Urine Blood Neg (Negative) 02/20/23 11:25 Urine Nitrate Negative (Negative) 02/20/23 11:25 Urine Bilirubin Neg (Negative) 02/20/23 11:25 Urine Urobilinogen Norm mg/dL (Negative) 02/20/23 11:25 Ur Leukocyte Esterase Negative (Negative) 02/20/23 11:25 Serum Ketones Positive (Negative) H 02/20/23 11:17 Discharge Plan Discharge Patient Disposition: Admitted As Inpatient Admit Provider: Wesley Uriostegui Condition: Stable Coding Level of Care Code ED Administrator Of Home Health for Yolette Patton
[2023-02-20 13:14] LABS: ABG PH Result 7.27 (7.35-7.45); Arterial Blood Gas Hematocrit 35.4 % (37-47); Base Excess ABG 0.2 mmol/L (-2.0-2.0); Blood Gas Allen Test Pos; Blood Gas Operator Identificat MONRO; Blood Gas Sample Site Radial, right; Blood Gas Sample Type Arterial; HCO3 ABG 28.1 mmol/L (22-26); Oxygen Device BIPAP; PO2 ABG 84.6 mmHg (80.0-100.0)
[2023-02-20 13:15] LABS: ABG PCO2 60.7 mmHg (35-45)
[2023-02-20] MEDS: levofloxacin-dextrose 5 % 750 MG/150 ML PREMIX 100 MG IV (13:20)
[2023-02-20] MEDS: FUROsemide 10 mg/mL SDV 4mL 40 MG IVP ×2 (13:21→23:27)
[2023-02-20] MEDS: DOPamine drip 400 MG/250 ML PREMIX 9.95 MG IV (13:21)
--- NOTE | 2023-02-20 13:53 | P.HP_ITS ---
Providers/Chief Complaint Primary Care Provider: Coco Flores MD Chief Complaint: sob History of Present Illness Maria M Klein is a 77 year old female with history of preserved ejection fraction, chronic hypoxia required 3 L, most recent discharge from the hospital to [facility] presented with chief complaint of unresponsiveness. Daughter is at the bedside stating that the call at 9 AM when she was not responding to the phone call she asked nursing staff to check on her around 933 AM she was told that she is unresponsive she was sent to the hospital for further evaluation, in the ER she was diagnosed with cardiogenic shock she was put on dopamine, she was transferred to the ICU for management of cardiogenic sh ock. She also had acute hypercapnic respiratory failure. She was put on BiPAP. By the time I saw her in the ICU she was awake and alert and trying to rip off her mask, we discussed goals of care patient gave confusing answers, daughters were at the bedside, for now we will keep her full code, she is very anxious we had to put her on Precedex, PICC line was placed. And requesting another ABG patient able to move her extremities, no signs of stroke at all, clinically looks fluid overloaded Review of Systems General: Reports: ROS unobtainable due to medical condition Medications/Allergies Home Medications Medication Instructions Recorded Confirmed Last Taken Type aspirin 81 mg tablet,delayed 81 mg PO QAM 01/24/20 02/20/23 02/07/23 History release (Adult Aspirin Regimen) blood sugar diagnostic (FreeStyle #100 ea 04/15/22 02/20/23 Unknown Rx Lite Strips) blood-glucose meter (FreeStyle #1 ea 04/15/22 02/20/23 Unknown Rx Lite Meter kit) clopidogrel 75 mg tablet 75 mg PO QAM 90 days #90 tabs 06/21/22 02/20/2302/07 Rx lisinopril 20 mg tablet 20 mg PO QAM 90 days #90 tabs 07/16/22 02/20/23 02/07/23 Rx kpunbzpi-phy-qnquc ac 400 1 tab PO DAILY 08/23/22 02/20/23 02/07/23 History mcg-calcium carb 500 mg-vit K1 20 mcg tablet (Women's 50 Plus Daily Formula) lancet with blood glucose test #300 ea 08/27/22 02/20/23 Unknown Rx strips and pen needles combo pack alprazolam 0.5 mg tablet 0.5 mg PO BID PRN Anxiety #60 tabs 11/21/22 02/20/23 02/07/23 Rx tiotropium bromide 18 mcg capsule 1 cap inhalation DAILY #30 caps 01/06/23 02/20/23 02/07/23 Rx with inhalation device (Spiriva with HandiHaler) hydrocodone 5 mg-acetaminophen 325 1 tab PO Q12H PRN pain 30 days #60 01/13/23 02/20/23 02/07/23 Rx mg tablet tabs celecoxib 200 mg capsule (Celebrex) 200 mg PO BID #60 caps 01/27/23 02/20/23 02/07/23 Rx citalopram 20 mg tablet 40 mg PO DAILY #180 tabs 01/28/23 02/20/23 02/07/23 Rx galantamine 24 mg 24 hr 24 mg PO QAM #90 caps 01/28/23 02/20/23 02/07/23 Rx capsule,extended release levetiracetam 500 mg 500 mg PO DAILY #90 tabs 01/28/23 02/20/23 02/07/23 Rx tablet,extended release 24 hr (Keppra XR) amlodipine 2.5 mg tablet 2.5 mg PO BID 02/07/23 02/20/23 02/07/23 History furosemide 40 mg tablet 40 mg PO DAILY@0800 30 days #30 02/11/23 02/20/23 Unknown Rx tabs albuterol sulfate 2.5 mg/3 mL 2.5 mg inhalation Q4H PRN 02/20/23 02/20/23 Unknown History (0.083 %) solution for nebulization Shortness Of Breath bisacodyl 10 mg rectal suppository 10 mg TN DAILY PRN Constipation 02/20/23 02/20/23 Unknown History (Dulcolax (bisacodyl)) insulin detemir U-100 100 unit/mL 100 unit SUBCUT BEDTIME 02/20/23 02/20/23 U nknown History (3 mL) subcutaneous pen (Levemir FlexPen) insulin lispro 100 unit/mL 2 unit SUBCUT TID 02/20/23 02/20/23 Unknown History subcutaneous solution (Humalog U-100 Insulin) magnesium hydroxide 400 mg/5 mL 2,400 mg PO DAILY PRN Constipation 02/20/23 02/20/23 Unknown History oral suspension (Milk of Magnesia) mirtazapine 15 mg tablet 15 mg PO BEDTIME rest/poor appetite 02/20/23 02/20/23 Unknown History potassium chloride 20 mEq 20 meq PO DAILY 02/20/23 02/20/23 Unknown History tablet,extended release(part/cryst) quetiapine 25 mg tablet 25 mg PO BID 02/20/23 02/20/23 Unknown History sitagliptin phosphate 50 mg tablet 50 mg PO DAILY 02/20/23 02/20/23 Unknown History (Januvia) sodium phosphates 19 gram-7 118 ml TN DAILY PRN Constipation 02/20/23 02/20/23 Unknown History gram/118 mL enema (Fleet Enema) Allergies Allergy/AdvReac Type Severity Reaction Status Date / Time No Known Allergies Allergy Verified 01/28/23 14:17 PFSH Acute PFSH: Medical History Alzheimer disease Alzheimer's disease Anxiety Chronic obstructive pulmonary disease Depression Diabetes DKA (diabetic ketoacidosis) Generalized epilepsy History of stroke History of tobacco abuse Hypercholesteremia Hypertension Hyponatremia Surgical History History of tonsillectomy History of total hysterectomy Social History Smoking and tobacco status: former smoker Quit status (tobacco): has quit using tobacco Year quit tobacco: 2019 2 PACK PER DAY X 58 Alcohol intake: never Substance/Drug Use: never Vitals/I&O/Wt Last Vital Signs Temp 97.8 F 02/20/23 10:12 Pulse 116 H 02/20/23 10:19 Resp 13 02/20/23 10:19 BP 94/58 02/20/23 10:12 Pulse Ox 94 02/20/23 13:43 O2 Del Method BiPAP 02/20/23 10:19 FiO2 35 02/20/23 13:43 Weight last 48 hrs Weight 53.07 kg Physical Exam Narrative: Clinical signs of fluid overload Currently on BiPAP FiO2 30% Patient does not show any signs of stroke No asterixis Able to follow commands Awake and alert GCS 15 Daughters at the bedside S1, S2 heart rate around 80s Bilateral bedside with rhonchi and crackles Anxious Urinary Catheter Management: Martinez: Cath Placed During This Visit: yes Urinary Catheter Date of Insertion: 02/20/23 Urinary Catheter Time of Insertion: 13:44 Data 02/20/23 11:17 02/20/23 11:17 Micro: Microbiology 02/20/23 13:14 Blood Culture - Preliminary Blood SPECIMEN COLLECTED 02/20/23 13:17 Blood Culture - Preliminary Blood SPECIMEN COLLECTED A&P Assessment and plan (1) Acute congestive heart failure: (2) Acute exacerbation of chronic obstructive airways disease: (3) Congestive heart failure: (4) Hypoxia: (5) Pneumonia: (6) Acute hypercapnic respiratory failure: (7) Non-STEMI (non-ST elevated myocardial infarction): (8) MIGUEL (acute kidney injury): Plan Acute CHF exacerbation Cardiogenic shock Currently on Levophed Blood pressure improved Patient does not have any skin mottling MAP improved as well Patient recently had echo which showed preserved action fraction Start diuretics Acute hypercapnic respite failure Currently on BiPAP Repeat ABG If PCO2 and pH has improved I will give her a break from BiPAP let her eat and then put her back on BiPAP overnight If BiPAP fails next of will be intubation for however for now clinically she seems to be improving MIGUEL: Cardiorenal Anticipating improvement with diuresis Hyperkalemia: We will give Kayexalate, insulin D50 and calcium gluconate Non-STEMI: Start heparin drip community-acquired pneumonia I will start Zosyn and cefepime Patient is full code We will rediscuss in the morning when she is more awake and alert I will let her eat around 7:30 PM ABG seems to be getting better Daughter is medical DPOA, patient remains full code for now Attestations Medical Necessity Statement*: More than 2 midnights anticipate Coding Level of Care Code Critical Care >/= 30 minutes Critical care time (in minutes): 35 The high probability of a clinically significant, sudden or life threatening deterioration, as referenced in this documentation, required my full and direct attention, intervention and personal management. The critical care time shown is in addition to time spent performing any reported separately billable procedures and includes the following: [x] Data and vital sign review and interpretation [x ] Patient assessment, examination and intervention [x] Medication orders and management [x] Patient/Family updates as able [x] Care Coordination and Documentation. Diagnoses Acute congestive heart failure I50.9 Acute exacerbation of chronic obstructive airways disease J44.1 Congestive heart failure I50.9 Hypoxia R09.02 Pneumonia J18.9 Acute hypercapnic respiratory failure J96.02 Non-STEMI (non-ST elevated myocardial infarction) I21.4 MIGUEL (acute kidney injury) N17.9
[2023-02-20 13:58] LABS: Troponin 5 2HR Delta -8.9 ABS# (0-10)
[2023-02-20 14:00] LABS: Troponin 5 2HR 166.1 ng/L (0-10)
[2023-02-20 14:46] LABS: Procalcitonin 0.18 ng/mL (0-0.5)
[2023-02-20 14:52] LABS: D Dimer 6.42 ug/mIFEU (0-0.59)
--- NOTE | 2023-02-20 15:40 | PC.NURSE ---
Other belongings with family. Patient is wearing a heart shaped ring with yellow stone.
[2023-02-20] MEDS: cefepime 2,000 MG in sodium chloride 0.9% (plus) 50 ML 100 MG IV (16:00)
[2023-02-20] MEDS: dexmedetomidine 400 MCG in sodium chloride 0.9% (100 ml) 100 ML IV (16:37)
[2023-02-20] MEDS: ipratropium-albuterol 3 mL Neb INHALATION ×2 (16:37→19:50)
--- NOTE | 2023-02-20 16:57 | XRR_ITS ---
PROCEDURE INFORMATION: Exam: XR Chest Exam date and time: 02/20/2023 5:40 PM Age: 77 years old Clinical indication: Device placement; Picc; Additional info: Picc line placement, will call when ready. TECHNIQUE: Imaging protocol: Radiologic exam of the chest. Views: 1 view. COMPARISON: CR XR chest 1V portable [id number] 02/20/2023 10:44 AM FINDINGS: Tubes, catheters and devices: Right-sided PICC tip is in the superior vena cava. Lungs: Lung opacities appear less prominent possibly due to improved inspiration. Pleural spaces: Unremarkable. No pleural effusion. No pneumothorax. Heart/Mediastinum: Unremarkable. No cardiomegaly. Bones/joints: Unremarkable. XR/XR chest 1V portable [id number] IMPRESSION: 1. Right-sided PICC tip is in the superior vena cava. 2. Lung opacities appear less prominent possibly due to improved inspiration.
[2023-02-20] MEDS: piperacillin-tazobactam 3.375 GM in sodium chloride 0.9% (plus) 50 ML IV (17:45)
--- NOTE | 2023-02-20 18:03 | PC.NURSE ---
PICC Insertion: Consulted by house charge for PICC placement for vasopressors, IV abx and sedation. Upon arrival to room, focused assessment found patient unable to consent for procedure due to acute confusion. Discussed procedure with patient's daughter at bedside and obtained written consent. PICC education provided to patient's daughter at that time. Assessed RUE via ultrasound and determined basilic vein best target for cannulation due to size and lack of evidence of thrombus or stenosis. Using US guidance, MST and sterile technique, accessed vein x 2 sticks. 1st stick unable to advance wire. 2nd stick approximately 2cm proximal to 1st. Device then advanced without resistance. Positive blood return; flushed easily. Hemostasis achieved WNL; EBL <10mL. Device secured. Chest x-ray obtained to confirm PICC tip location in SVC. Patient tolerated as expected. Reported to primary nurse.
[2023-02-20 18:22] LABS: ABG PCO2 52.9 mmHg (35-45); Alveolar-Arterial Oxygen Gradi 8.9 mmHg (5-10); Arterial Blood Gas Hematocrit 34.2 % (37-47); Base Excess ABG -1.1 mmol/L (-2.0-2.0); Blood Gas Allen Test Pos; Blood Gas Operator Identificat MONRO; Blood Gas Sample Site Brachial, right; Blood Gas Sample Type Arterial; Carboxyhemoglobin 2.2 %THgb (0.4-20.1); HCO3 ABG 25.9 mmol/L (22-26); HGB O2 Sat 92.9 % (95-100); Ionized Calcium Level - ABG 1.3 mmol/L (1.1-1.4); Methemoglobin 0.7 % (0.4-1.5); Oxygen Device BIPAP; Oxygen Saturation ABG 95.7; PO2 ABG 79.5 mmHg (80.0-100.0); Potassium Level - ABG 5.1 mmol/L (3.5-5.0); Total Hemoglobin 11.2 g/dL (12-16)
[2023-02-20 18:58] LABS: Troponin 5 6HR Delta 5.6 ng/L (0-12)
[2023-02-20 19:01] LABS: Troponin 5 6HR 180.6 ng/L (0-10)
[2023-02-20] MEDS: FUROsemide 10 mg/mL SDV 2mL 20 MG IVP (19:13)
[2023-02-20] MEDS: calcium gluconate 0.9% NaCL 1 GM/50 ML PREMIX IV (19:19)
[2023-02-20] MEDS: heparin drip 25,000 UNIT/500 ML PREMIX 14 UNIT IV (19:29)
[2023-02-20] MEDS: dextrose 50% syringe 50 mL IVP (19:35)
[2023-02-20] MEDS: insulin regular-human 10 UNIT in SYRINGE 1 EACH 500 UNIT IVP (19:36)
[2023-02-20] MEDS: heparin 5,000 unit/mL INJ 1 mL IV (19:44)
[2023-02-20 19:54] LABS: Vitamin B12 1790 pg/mL (232-1245)
--- NOTE | 2023-02-20 22:11 | PC.NURSE ---
Started heparin gtt on patient at 193 (see mar) patient weight 53.07. patient weight rounded up on heparin protocol to 54 kg. Per protocol start heparin gtt at 700 units/ hr or 14ml/hr. verified with DANIELLA Khan. Later this RN was reviewing medications and noticed that gtt at 700unit/hr; 14ml/hr only equaled 13.19 units/kg/hr. RN brought this to attention on health and safety consultant. Protocol states 50 kg = 700 units/hr, 52kg = 750 units/hr, 54kg = 700 units/hr. net developer software engineer c immediately called pharmacist to come review protocol. Pharmacist arrived at bedside to review discrepancy. 2112 net developer software engineer c called building and construction manager Ally to inform about discrepancy. 2199 pharmacist arrived on unit to inform RN protocol was changed and to set put to 750 units/hr, 15ml/hr, or 14.13 units/kg/hr
[2023-02-20 23:00] LABS: Glucose Point of Care 177 mg/dL (70-110)
[2023-02-21] VITALS (97 sets, daily range): BP systolic 76–154; BP diastolic 41–107; PULSE 60–106; RESP 14–30; TEMP 37; O2SAT 87–99
[2023-02-21] MEDS: piperacillin-tazobactam 3.375 GM in sodium chloride 0.9% (plus) 50 ML IV ×3 (01:09→15:50)
[2023-02-21] MEDS: dexmedetomidine 400 MCG in sodium chloride 0.9% (100 ml) 100 ML 12.42 MCG IV ×3 (01:09→21:00)
[2023-02-21 02:06] LABS: Partial Thromboplastin Time 40.5 SECONDS (23.9-36.7)
[2023-02-21] MEDS: ipratropium-albuterol 3 mL Neb INHALATION ×3 (02:08→20:03)
[2023-02-21] MEDS: heparin 5,000 unit/mL INJ 1 mL IV (02:12)
[2023-02-21] MEDS: cefepime 2,000 MG in sodium chloride 0.9% (plus) 50 ML 100 MG IV (03:20)
[2023-02-21 04:26] LABS: Basophils % 0.3 %; Eosinophils % 0.2 %; Hemoglobin 10.3 g/dL (11.5-15.3); Lymphocytes # 0.4 10^3/uL (0.8-4.8); Lymphocytes % 3.9 %; Mean Corpuscular HGB Conc 30.3 g/dL (30.0-36.0); Mean Corpuscular Hemoglobin 30.1 pg (28.0-34.0); Mean Corpuscular Volume 99.4 fl (81-99); Mean Platelet Volume 9.8 fL (7.4-10.4); Monocytes # 0.6 10^3/uL (0.2-0.9); Monocytes % 5.6 %; Neutrophils # 10.09 10^3/uL (1.8-7.7); Neutrophils % 89.4 %; Nucleated Red Blood Cells % 0 %; Platelet Count 344 10^3/cmm (130-400); Red Blood Count 3.42 10^6/uL (4.1-5.3); Red Cell Distribution Width 14.6 % (12.1-15.1); White Blood Count 11.3 10^3/uL (4.0-10.0)
[2023-02-21 04:41] LABS: Blood Urea Nitrogen 49 mg/dL (8-23); C Reactive Protein 6.1 mg/L (0.0-4.9); Calcium 8.8 mg/dL (8.5-10.5); Carbon Dioxide 23 mmol/L (22-29); Chloride 104 mmol/L (98-107); Glucose 199 mg/dL (65-115); Magnesium 1.8 mg/dL (1.7-2.3); Osmolality Calculated 303 mOsm/kg (285-295); Phosphorus 3.8 mg/dL (2.5-4.5); Sodium 137 mmol/L (136-145)
[2023-02-21 05:34] LABS: ABG PCO2 44.8 mmHg (35-45); ABG PH Result 7.32 (7.35-7.45); Base Excess ABG -3.4 mmol/L (-2.0-2.0); Blood Gas Allen Test Pos; Blood Gas Operator Identificat JB; Blood Gas Sample Site Brachial, right; Blood Gas Sample Type Arterial; HCO3 ABG 22.8 mmol/L (22-26); Oxygen Device VENT; PO2 ABG 91.8 mmHg (80.0-100.0)
[2023-02-21] MEDS: aspirin 81 mg EC Tablet PO (08:20)
[2023-02-21] MEDS: FUROsemide 10 mg/mL SDV 4mL 40 MG IVP (08:20)
[2023-02-21] MEDS: clopidogrel 75 mg Tablet PO (08:20)
[2023-02-21 08:46] LABS: Partial Thromboplastin Time 88.1 SECONDS (23.9-36.7)
--- NOTE | 2023-02-21 08:56 | PC.NURSE ---
Heparin drip: PTT result 88.1, according to protocol, decrease infusion by 100units/hr. Pump running at 1150 units/ hr or 23ml/hr, decreased to 1050 units/hr or 21ml/hr. Verified with second RN.
--- NOTE | 2023-02-21 09:11 | USCV_ITS ---
Maria M Klein Age: 77 Gender: F : 1945 Exam Date: 02/21/2023 11:00 Ordering Phys: Wesley Uriostegui MD Technologist: IVETTE Exam Location: [facility] Indication: dvt PROCEDURES: The venous duplex Doppler examination of both lower extremities was performed in the standard fashion. FINDINGS: Normal 2-D Doppler and augmentation and compressibility throughout the lower extremity venous structures. Additional imaging through the proximal calf veins also reveals no thrombus. Limited evaluation of the greater saphenous vein is patent with no thrombus. CONCLUSIONS No DVT bilateral lower extremities. Dr. Alva Lancaster DO (Electronically Signed) Final Date: 21 February 2023 11:57 S
--- NOTE | 2023-02-21 09:11 | CT_ITS ---
WS: [id number] CT CHEST ANGIOGRAPHY WITH REFORMATS HISTORY: hypoxia TECHNIQUE: Contiguous axial images are obtained through the chest during arterial injection of intrav enous contrast. Images are reconstructed to evaluate the pulmonary arteries. MIP imaging also reviewe d. All CT scans at [facility] use at least one of these dose optimization techniques: automat ed exposure control; mA and/or kV adjustment per patient size (includes targeted exams where dose is matched to clinical indication); or iterative reconstruction. CONTRAST: Omnipaque 350; 100 mL IV. DLP: 354.87 mGy.cm COMPARISON: 04/26/2021 Moderately compromised exam due to motion artifact. Very good opacification of the pulmonary arteries. No central filling defects. There are no filling d efects in the lobar and proximal segmental arteries. Large bilateral pleural effusions and airspace d isease obscuring the distal segmental lower lobe pulmonary arteries. Moderate atherosclerosis aorta. Moderate-sized bilateral layering pleural effusions. Scattered multifocal opacifications throughout b oth lungs. Mild cardiomegaly. Mild RIGHT heart enlargement with tricuspid regurgitation into the hepa tic veins. Very mildly prominent mediastinal and hilar lymphoid tissue. Extensive soft tissue anasarca. Increased soft tissue in the upper abdomen surrounding the celiac axi s. There is an ill-defined mass measuring approximately 6.1 x 5.4 cm which may be pancreatic in origi n. LEFT renal hyperdense nodule at 1.3 cm. Probably a hemorrhagic nodule. Density is increased since CT/CT angio chest PE protcl [id number] IMPRESSION: 1. No central or proximal pulmonary artery emboli. 2. Moderate bilateral layering pleural effusions. 3. Multifocal pulmonary opacifications and spiculated nodules. Differential in cludes pneumonia, septic emboli and metastatic disease. Recommend follow-up lucio st CT with IV contrast after treatment for patient's acute presentation. 4. Diffuse soft tissue anasarca. 5. Soft tissue mass centered in the expected location of the celiac axis, panc reatic head and proximal body. Mass measures 6.1 x 4.4 cm. Differential include s lymphadenopathy and pancreatic mass. Recommend follow-up CT abdomen and pelvi s with IV and oral contrast as patient's condition permits. Recommend delay of at least 24 hours before additional IV contrast is given.
[2023-02-21] MEDS: iohexol 350 mg/mL 500 mL Btl (per mL) IV (10:36)
--- NOTE | 2023-02-21 12:22 | P.PN_ITS ---
Subjective Subjective: This morning pt is awake and alert Able to tolerate diet Heart rate around 80s Currently on Levophed at 2 mics On 3 L of oxygen Patient is stating that she feels much better today Her breathing is better No BM today More than a liter output No fever overnight D-dimer extremely high for her age 6.4 CTA chest finding today IMPRESSION: ? 1.? No central or proximal pulmonary artery emboli. 2.? Moderate bilateral layering pleural effusions. 3.? Multifocal pulmonary opacifications and spiculated nodules. Differential includes pneumonia, septic emboli and metastatic disease. Recommend follow-up chest CT with IV contrast after treatment for patient's acute presentation. 4.? Diffuse soft tissue anasarca. 5.? Soft tissue mass centered in the expected location of the celiac axis, panc reatic head and proximal body. Mass measures 6.1 x 4.4 cm. Differential includes lymphadenopathy and pancreatic mass. Recommend follow-up CT abdomen and pelvis with IV and oral contrast as patient's condition permits. Recommend delay of at least 24 hours before additional IV contrast is given. Vitals/I&O/Wt Last Vital Signs Temp 98.6 F 02/21/23 09:45 Pulse 73 02/21/23 12:00 Resp 28 H 02/21/23 12:00 BP 128/58 02/21/23 12:00 Pulse Ox 93 02/21/23 12:00 O2 Del Method Nasal Cannula 02/21/23 12:00 O2 Flow Rate 3 02/21/23 12:00 FiO2 35 02/21/23 06:00 02/20/23 02/21/23 02/21/23 22:59 06:59 14:59 Intake Total 506.141 / 1006.141 245.993 / 1252.134 725.845 / 725.845 Output Total 350 / 350 350 / 700 350 / 350 Balance 156.141 / 656.141 -104.007 / 552.134 375.845 / 375.845 Weight last 48 hrs Weight 53.07 kg Physical Exam Narrative: Patient is awake and alert Currently on 3 L of oxygen Signs of fluid overload present however improving Abdomen soft No audible stridor or wheezing present on lung auscultation GCS 15 Nonfocal neuro exam Lower extremity edema Short attention span Anxious appearing Urinary Catheter Management: Martinez: Cath Placed During This Visit: yes Reason for Continuing Indwelling Catheter: Accurate Measurement of Urinary Output in Critically Ill Patients Urinary Catheter Date of Insertion: 02/20/23 Urinary Catheter Time of Insertion: 13:44 Data 02/21/23 03:44 02/21/23 03:44 Micro: Microbiology 02/20/23 13:14 Blood Culture - Preliminary Blood SPECIMEN COLLECTED 02/20/23 13:17 Blood Culture - Preliminary Blood SPECIMEN COLLECTED A&P Assessment and plan (1) MIGUEL (acute kidney injury): (2) Non-STEMI (non-ST elevated myocardial infarction): (3) Acute hypercapnic respiratory failure: (4) Acute congestive heart failure: (5) Acute exacerbation of chronic obstructive airways disease: (6) Congestive heart failure: (7) Hypoxia: (8) Pneumonia: (9) Alzheimer disease: (10) Ex-smoker: (11) Diabetes: Qualifiers: Diabetes mellitus type: type 2 Diabetes mellitus chcf insulin use: without chcf use Diabetes mellitus complication status: with hyperglycemia Qualified Code(s): E11.65 - Type 2 diabetes mellitus with hyperglycemia (12) Pancreatic mass: (13) Pulmonary nodule: Plan Acute diastolic CHF exacerbation with cardiogenic shock: Blood pressure improved MAP improved as well non Adequate urine output with 40 IV Lasix, will change to 60mg IV Lasix every 12 hours Will repeat echo to see wall motion abnormality however recent echo showed preserved ejection fraction Currently requiring Levophed at 2 mics Non-STEMI: Currently on heparin drip ACS protocol Case discussed with Dr. Toro who recommended cardiac stress test on Friday considering the fact patient is chest pain-free troponin trending down High D-dimer: Concern for underlying occult malignancy, venous Doppler CTA did not show PE or DVT, spiculated lung nodule and pancreatic mass noted, she got IV contrast today I would not repeat her CT scan We will do CT scan of abdomen pelvis without contrast today MIGUEL: Anticipate improvement with diuresis: Likely cardiorenal in nature I would like her urine output to be about 100 mL/h Community-acquired pneumonia currently on Zosyn and cefepime for double antipseudomonal coverage Afebrile Acute hypoxic hypercapnic respite failure: Improved with BiPAP currently requiring 3 L Full code Cardiac diet on board May use BiPAP on as-needed basis Daughter is medical DPOA however patient seems to be at her baseline today Attestations Medical Necessity Statement*: Continue ICU management Diagnoses MIGUEL (acute kidney injury) N17.9 Non-STEMI (non-ST elevated myocardial infarction) I21.4 Acute hypercapnic respiratory failure J96.02 Acute congestive heart failure I50.9 Acute exacerbation of chronic obstructive airways disease J44.1 Congestive heart failure I50.9 Hypoxia R09.02 Pneumonia J18.9 Alzheimer disease G30.9; F02.80 Ex-smoker Z87.891 Diabetes E11.65 Diabetes mellitus type: type 2 Diabetes mellitus chcf insulin use: without chcf use Diabetes mellitus complication status: with hyperglycemia Pancreatic mass K86.89 Pulmonary nodule R91.1
[2023-02-21] MEDS: FUROsemide 10 mg/mL SDV 10mL 60 MG IVP (12:44)
--- NOTE | 2023-02-21 13:00 | USCV_ITS ---
Maria M Klein Age: 77 Gender: F : 1945 Exam Date: 02/21/2023 13:49 Ordering Phys: Wesley Uriostegui MD Technologist: IVETTE [place]am Location[place] [facility] [place]: nstemi BP: / HR: 69 Rhythm: Sinus Technical Quality: Adequate MEASUREMENTS (Male / Female) Normal Values 2D ECHO LV Diastolic Diameter PLAX 4.3 cm 4.2 - 5.9 / 3.9 - 5.3 cm LV Systolic Diameter PLAX 3.4 cm IVS Diastolic Thickness 0.6 cm 0.6 - 1.0 / 0.6 - 0.9 cm IVS Systolic Thickness 1.2 cm LVPW Diastolic Thickness 0.6 cm 0.6 - 1.0 / 0.6 - 0.9 cm LVPW Systolic Thickness 0.8 cm LV Ejection Fraction 2D Teich 46.0 % LV Ejection Fraction MOD 2C 49.2 % LV Ejection Fraction 2C AL 50.7 % FINDINGS Left Ventricle Normal left ventricular size and systolic function, EF 57 %. Mild left ventricular hypertrophy. Segmental wall motion analysis difficult because of the poor ultrasonic windows. However no gross abnormalities noted Right Ventricle The right ventricle is normal in size and function. Right Atrium The right atrium is normal in size. Left Atrium The left atrium is normal in size. Mitral Valve Thickened mitral valve. Mild mitral annular calcification. Aortic Valve Thickened aortic valve. Tricuspid Valve No gross abnormalities noted Pulmonic Valve Not visualized well Pericardium Normal pericardium without effusion. Aorta Normal ascending aorta dimension. IVC Normal inferior vena cava. CONCLUSIONS Normal left ventricular size and systolic function, EF 57 %. Mild left ventricular hypertrophy. Segmental wall motion analysis difficult because of the poor ultrasonic windows. However no gross wall motion abnormalities noted. Thickened mitral valve. Mild mitral annular calcification. Thickened aortic valve. There is no pericardial effusion. Comparison with the previous study is difficult because of the difference in the technical quality. Technically difficult study because of the poor ultrasonic window. Dr Jeff Toro MD [facility] (Electronically Signed) Final Date: 21 February 2023 14:51 S
[2023-02-21 13:29] LABS: Magnesium 1.7 mg/dL (1.7-2.3)
[2023-02-21 13:38] LABS: Carcinoembryonic Antigen 12.5 ng/mL (0.0-4.7)
[2023-02-21 14:13] LABS: Cancer Antigen 19 9 > 10000 U/mL (0-35)
[2023-02-21 15:39] LABS: Partial Thromboplastin Time 76.3 SECONDS (23.9-36.7)
--- NOTE | 2023-02-21 15:58 | PC.NURSE ---
Heparin drip: PTT 76.3 per protocol, Decreased rate to 20ml/hr or 1000units. Verified with second RN. See previous shift note and contact with pharmacy regarding titrations.
[2023-02-21] MEDS: magnesium oxide 400 mg tablet PO (17:25)
[2023-02-21] MEDS: budesonide 0.5 mg/2 mL Neb INHALATION (20:03)
[2023-02-21] MEDS: heparin drip 25,000 UNIT/500 ML PREMIX 20 UNIT IV (21:26)
[2023-02-21 21:32] LABS: Partial Thromboplastin Time 69.7 SECONDS (23.9-36.7)
--- NOTE | 2023-02-21 21:49 | PC.NURSE ---
Heparin Drip: 2105 ptt 69.7, no change per protocol.
[2023-02-22] VITALS (68 sets, daily range): BP systolic 85–162; BP diastolic 45–78; PULSE 64–121; RESP 15–39; TEMP 36.4–36.9; O2SAT 90–100
[2023-02-22] MEDS: piperacillin-tazobactam 3.375 GM in sodium chloride 0.9% (plus) 50 ML IV ×3 (00:04→17:31)
[2023-02-22] MEDS: FUROsemide 10 mg/mL SDV 10mL 60 MG IVP ×2 (00:05→17:31)
[2023-02-22] MEDS: ipratropium-albuterol 3 mL Neb INHALATION ×3 (02:28→13:57)
[2023-02-22 03:31] LABS: Basophils # 0.1 10^3/uL (0.0-0.1); Basophils % 0.4 %; Eosinophils # 0.2 10^3/uL (0.0-0.8); Eosinophils % 1.4 %; Hematocrit 35.2 % (37.0-47.0); Hemoglobin 10.9 g/dL (11.5-15.3); Lymphocytes # 0.6 10^3/uL (0.8-4.8); Mean Platelet Volume 9.7 fL (7.4-10.4); Monocytes # 1.1 10^3/uL (0.2-0.9); Monocytes % 7.8 %; Neutrophils # 12.23 10^3/uL (1.8-7.7); Neutrophils % 85.6 %; Nucleated Red Blood Cells % 0 %; Platelet Count 372 10^3/cmm (130-400); Red Blood Count 3.63 10^6/uL (4.1-5.3); Red Cell Distribution Width 14.6 % (12.1-15.1); White Blood Count 14.3 10^3/uL (4.0-10.0)
[2023-02-22 03:42] LABS: Partial Thromboplastin Time 70.8 SECONDS (23.9-36.7)
[2023-02-22 03:53] LABS: Alanine Aminotransferase 51 U/L (0-33); Albumin Level 3.2 g/dL (3.5-5.2); Alkaline Phosphatase 230 U/L (35-105); Aspartate Amino Transferase 34 U/L (0-32); Blood Urea Nitrogen 48 mg/dL (8-23); Calcium 8.8 mg/dL (8.5-10.5); Carbon Dioxide 26 mmol/L (22-29); Chloride 100 mmol/L (98-107); Globulin 2.6 g/dL (1.3-4.6); Glucose 221 mg/dL (65-115); Osmolality Calculated 305 mOsm/kg (285-295); Sodium 138 mmol/L (136-145); Total Bilirubin 0.3 mg/dL (0.15-1.2); Total Protein 5.8 g/dL (6.6-8.7)
[2023-02-22 04:04] LABS: Lipase 59 U/L (13-60)
[2023-02-22 04:09] LABS: Phosphorus 3.8 mg/dL (2.5-4.5); Procalcitonin 0.43 ng/mL (0-0.5)
[2023-02-22] MEDS: cefepime 1,000 MG in sodium chloride 0.9% (plus) 50 ML 100 MG IV (04:32)
--- NOTE | 2023-02-22 06:45 | PC.NURSE ---
8 second pause: Pt's HR went asystole on the monitor for 8 seconds. Strip printed and placed in chart. Dr. Maxwell called, new order for stat mag, okay to run off morning labs.
[2023-02-22 07:13] LABS: Magnesium 1.9 mg/dL (1.7-2.3)
[2023-02-22] MEDS: budesonide 0.5 mg/2 mL Neb INHALATION ×2 (08:13→19:22)
--- NOTE | 2023-02-22 08:19 | PC.NURSE ---
HR/SPO2 Patient's HR dropped in the 40s and sats in the 70s while patient getting cleaned up from having a bowel movement. 4LNC on and turned up to 6 LNC, patient returned to high hudson's position and RT called for breathing treatment. Patient refusing BiPAP at this time. HR 106, SPO2 92 after returning to sitting position.
[2023-02-22 09:47] LABS: Partial Thromboplastin Time 74.4 SECONDS (23.9-36.7)
[2023-02-22] MEDS: magnesium oxide 400 mg tablet PO ×2 (10:26→17:31)
[2023-02-22] MEDS: aspirin 81 mg EC Tablet PO (10:26)
[2023-02-22] MEDS: FUROsemide 10 mg/mL SDV 4mL 40 MG IVP (10:26)
[2023-02-22] MEDS: lidocaine 5% Patch 1 PATCH TOPICAL (10:26)
[2023-02-22] MEDS: clopidogrel 75 mg Tablet PO (10:26)
[2023-02-22 12:42] LABS: Glucose Point of Care 186 mg/dL (70-110)
[2023-02-22] MEDS: vancomycin 750 MG in sodium chloride 0.9% 250 ML 250 MG IV (12:45)
[2023-02-22] MEDS: citalopram 20 mg Tablet PO (12:45)
[2023-02-22] MEDS: morphine 4 mg/mL SDV 1 mL 1 MG IVP ×2 (12:46→17:46)
[2023-02-22] MEDS: FUROsemide 10 mg/mL SDV 2mL 20 MG IVP (12:46)
[2023-02-22] MEDS: insulin lispro 100 unit/1 mL SUBCUT ×2 (12:46→17:35)
--- NOTE | 2023-02-22 16:09 | P.PN_ITS ---
Subjective Subjective: Hospital course, labs appreciated. On examination patient lying comfortably in bed with BiPAP in place. Family members at bedside. Overnight patient had episode of sinus pauses up to 3 seconds. Today morning had a sinus pause again when patient was laid down flat and was turned to. Patient was symptomatic. Pallor. Currently on examination heart rate running in 100s, blood pressure at 130/80 mmHg, on BiPAP saturating more than 95%. Patient having shortness of breath on taking off of BiPAP. Blood work appreciated for leukocytosis of 14.3, hemoglobin of 10.9, BMP showing a creatinine of 1.7, elevated CEA, CA 19/9, CA125. Appreciate CTA chest results. Vitals/I&O/Wt Last Vital Signs Temp 97.7 F 02/22/23 13:00 Pulse 107 H 02/22/23 15:00 Resp 32 H 02/22/23 14:00 BP 116/55 02/22/23 15:00 Pulse Ox 95 02/22/23 15:00 O2 Del Method BiPAP 02/22/23 15:00 O2 Flow Rate 30 02/22/23 15:00 FiO2 30 02/22/23 14:24 02/22/23 02/22/23 02/22/23 06:59 14:59 22:59 Intake Total 412.171 / 2483.098 240 / 240 50 / 290 Output Total 1300 / 2700 700 / 700 Balance -887.829 / -216.902 -460 / -460 50 / -410 Physical Exam Narrative: General: No acute distress, AO x 1-2, slow to respond HEENT: PERRLA, pupils bilaterally equal and reactive Chest: Bilateral bronchial breath sounds with occasional rhonchi and coarse crackles, decreased air entry bilateral lower zone, on BiPAP CVS: S1-S2 regular, no murmurs, tachycardia, no gallops, no rubs Abdomen: Soft, nontender, no organomegaly, bowel sounds present but sluggish Neuro: No focal deficits, no facial deformity, moving all limbs Urinary Catheter Management: Martinez: Cath Placed During This Visit: yes Reason for Continuing Indwelling Catheter: Accurate Measurement of Urinary Output in Critically Ill Patients Urinary Catheter Date of Insertion: 02/20/23 Urinary Catheter Time of Insertion: 13:44 Data 02/22/23 02:57 02/22/23 02:57 Micro: Microbiology 02/20/23 13:14 Blood Culture - Preliminary Blood NEGATIVE TO DATE 02/20/23 13:17 Blood Culture - Preliminary Blood NEGATIVE TO DATE A&P Assessment and plan (1) Acute respiratory failure with hypoxia and hypercapnia: (2) Sinus pause: (3) Non-STEMI (non-ST elevated myocardial infarction): (4) Acute congestive heart failure: Qualifiers: Heart failure type: diastolic Qualified Code(s): I50.31 - Acute diastolic (congestive) heart failure (5) Pulmonary emboli: (6) Pneumonia: (7) Acute exacerbation of chronic obstructive airways disease: (8) MIGUEL (acute kidney injury): (9) Congestive heart failure: (10) Diabetes: Qualifiers: Diabetes mellitus type: type 2 Diabetes mellitus nursing home insulin use: without nursing home use Diabetes mellitus complication status: with hyperglycemia Qualified Code(s): E11.65 - Type 2 diabetes mellitus with hyperglycemia (11) Pancreatic mass: New diagnosis. Needs further work-up. Patient's creatinine elevated. Will do CTA abdomen pelvis or CT abdomen pelvis with contrast once patient clinically stable and creatinine stable. CEA, CA and 125, CA 19/9 elevated. High concerns for pancreatic malignancy for now. Discussed in detail with patient's DPOA at bedside. All the questions were answered. (12) Pulmonary nodule: (13) Ex-smoker: (14) Alzheimer disease: Plan 77-year-old female who was recently discharged admitted back to the hospital with concerns for cardiogenic shock and hypercapnic and hypoxic respiratory failure, non-ST elevation CT found to have high D-dimer with CTA showing concer ns for septic versus metastatic emboli, possible pancreatic mass and diffuse soft tissue anasarca, acute kidney injury. Cardiogenic shock: Resolved. Keep mean artery pressure 65. Levophed weaned off. Troponin cycled elevated. Recent echocardiogram showed an EF of 60% with grade 1 diastolic dysfunction. Repeat limited echocardiogram shows an EF of 57%, mild LVH, difficult to review RWMA. Patient not reliable historian given mild metabolic encephalopathy about chest pain. Acute congestive heart failure: Diastolic decompensated. Continue with IV Lasix 60 mg twice daily. Strict input output charting, daily weights. Pneumonia: Cannot rule out mild aspiration pneumonia. Patient does have leukocytosis along with shock on admission. Check MRSA swab. Follow-up blood cultures. Sputum culture when possible. For now continue with IV cefepime and vancomycin. Keep oxygen saturation over 90%. BiPAP as needed. High D-dimer: Appreciate CTA results with concerns for multiple small consolidation with possible of pneumonia, septic emboli versus pulmonary embolism versus metastatic disease in setting of new pancreatic mass. CEA, CA125, CA 19?19 elevated. For now continue with heparin drip. Sinus pause: Could be in setting of vasovagal as patient was being moved and was recently on Precedex. Hold off on Precedex. Continue to monitor on telemetry. If continues to have symptoms we will discuss further with cardiology. Currently with ongoing leukocytosis and as pneumonia is not ruled patient not a good candidate for permanent pacemaker implantation. Acute kidney injury: Check urine lites, urine creatinine, urine eosinophils. Strict and proper charting. Most likely in setting of cardiorenal syndrome. Goals of care discussion: Discussed in detail with patient's DPOA/daughters at bedside. We discussed that patient's cardiogenic shock is improving though she still has significant congestive heart failure leading to hypoxic respiratory failure and metabolic encephalopathy requiring continuous BiPAP ventilation, changing diet as per speech evaluation given metabolic encephalopathy, overnight sinus pauses and a possibility with a high likelihood of pancreatic malignancy and the possibility of thromboembolic versus metastatic disease in the lungs. We discussed unfortunately given advanced age and multiple comorbidities patient is fairly sick. Daughters verbalized understanding. For now would continue to keep patient full code. Will discuss further with family and get back to us. Full code. Advance diet as per speech evaluation. Protonix for PUD prophylaxis Heparin drip will suffice as DVT prophylaxis. Attestations Medical Necessity Statement*: Requires further hospitalization for management of acute hypoxic and hypercapnic respiratory failure in setting of congestive heart failure, pneumonia, sinus pause, thromboembolic versus metastatic disease of the lungs in setting of new pancreatic mass, acute kidney injury Coding Level of Care Code Critical Care >/= 30 minutes Critical care time (in minutes): 70 The high probability of a clinically significant, sudden or life threatening deterioration, as referenced in this documentation, required my full and direct attention, intervention and personal management. The critical care time shown is in addition to time spent performing any reported separately billable procedures and includes the following: [x] Data and vital sign review and interpretation [x ] Patient assessment, examination and intervention [x] Medication orders and management [x] Patient/Family updates as able [x] Care Coordination and Documentation. 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
[2023-02-22 16:17] LABS: Partial Thromboplastin Time 54.8 SECONDS (23.9-36.7)
[2023-02-22] MEDS: levalbuterol 0.63 mg/3 mL Neb INHALATION ×2 (16:55→19:26)
[2023-02-22] MEDS: ipratropium 0.5 mg/2.5 mL Neb INHALATION (16:55)
[2023-02-22] MEDS: quetiapine 25 mg Tablet PO (17:30)
[2023-02-22] MEDS: lactulose oral liq 20 gm/30 mL UDC PO (17:31)
[2023-02-22 18:57] LABS: Ammonia 68 umol/L (11-51)
[2023-02-22 19:19] LABS: Glucose Point of Care 201 mg/dL (70-110)
[2023-02-22 19:25] LABS: Blood Urea Nitrogen 48 mg/dL (8-23); Calcium 8.6 mg/dL (8.5-10.5); Carbon Dioxide 25 mmol/L (22-29); Chloride 101 mmol/L (98-107); Glucose 189 mg/dL (65-115); Osmolality Calculated 302 mOsm/kg (285-295); Sodium 137 mmol/L (136-145)
[2023-02-22 19:28] LABS: Anion Gap 14.8 (5-19); Potassium 3.8 mmol/L (3.5-5.1)
[2023-02-22 20:22] LABS: Glucose Point of Care 106 mg/dL (70-110)
[2023-02-22 20:40] LABS: Potassium, Radom Urine 28 mmol/L; Urine Creatinine 60 mg/dL (28-217); Urine Random Chloride 76 mmol/L; Urine Random Sodium 59 mmol/L
[2023-02-22] MEDS: mirtazapine 15 mg Tablet PO (20:47)
[2023-02-22 21:02] LABS: Eosinophil Urine No Eosinophils Seen; Urine Eosinophil Count 0 (0-0)
[2023-02-22 21:47] LABS: Partial Thromboplastin Time 36.4 SECONDS (23.9-36.7)
[2023-02-22] MEDS: heparin drip 25,000 UNIT/500 ML PREMIX 23 UNIT IV (22:21)
[2023-02-22] MEDS: heparin 5,000 unit/mL INJ 1 mL IV (22:30)
[2023-02-23] VITALS (104 sets, daily range): BP systolic 90–133; BP diastolic 39–77; PULSE 86–121; RESP 10–38; TEMP 35.8–37.2; O2SAT 70–100
[2023-02-23] MEDS: piperacillin-tazobactam 3.375 GM in sodium chloride 0.9% (plus) 50 ML IV ×3 (00:25→17:05)
[2023-02-23] MEDS: levalbuterol 0.63 mg/3 mL Neb INHALATION ×6 (02:51→23:09)
[2023-02-23] MEDS: ipratropium 0.5 mg/2.5 mL Neb INHALATION ×6 (02:51→23:09)
[2023-02-23] MEDS: ondansetron 2 mg/ML SDV 2 mL 4 MG IVP (02:59)
--- NOTE | 2023-02-23 03:04 | PC.NURSE ---
Addendum entered by Sandy Wayne RN 02/23/23 04:49: BIPAP reapplied @0440. Original Note: Low O2: @approximately 0300 pt became nauseated, BIPAP removed, NC applied @4L, SpO2 into the high 70's. RT @bedside. Pt recovered to 95% over several minutes after titrating oxygen up to 5L NC. Zofran given, see MAR . Pt is A&Ox3. 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 diminished lung sounds, labored breathing.
[2023-02-23 03:22] LABS: Basophils % 0.1 %; Eosinophils # 0.1 10^3/uL (0.0-0.8); Eosinophils % 0.4 %; Hematocrit 33.3 % (37.0-47.0); Lymphocytes # 0.4 10^3/uL (0.8-4.8); Lymphocytes % 2.9 %; Mean Corpuscular Hemoglobin 29.6 pg (28.0-34.0); Mean Corpuscular Volume 98.5 fl (81-99); Mean Platelet Volume 9.8 fL (7.4-10.4); Monocytes # 0.6 10^3/uL (0.2-0.9); Monocytes % 4.2 %; Neutrophils # 12.79 10^3/uL (1.8-7.7); Neutrophils % 91.8 %; Nucleated Red Blood Cells % 0 %; Platelet Count 285 10^3/cmm (130-400); Red Blood Count 3.38 10^6/uL (4.1-5.3); Red Cell Distribution Width 15.1 % (12.1-15.1)
[2023-02-23 03:41] LABS: Alanine Aminotransferase 44 U/L (0-33); Albumin Level 3.1 g/dL (3.5-5.2); Alkaline Phosphatase 212 U/L (35-105); Anion Gap 14.1 (5-19); Aspartate Amino Transferase 26 U/L (0-32); Blood Urea Nitrogen 47 mg/dL (8-23); Calcium 8.6 mg/dL (8.5-10.5); Carbon Dioxide 29 mmol/L (22-29); Chloride 104 mmol/L (98-107); Glucose 153 mg/dL (65-115); Osmolality Calculated 311 mOsm/kg (285-295); Potassium 4.1 mmol/L (3.5-5.1); Sodium 143 mmol/L (136-145); Total Bilirubin 0.2 mg/dL (0.15-1.2); Total Protein 6.1 g/dL (6.6-8.7)
[2023-02-23] MEDS: lactulose oral liq 20 gm/30 mL UDC PO ×2 (04:26→17:05)
[2023-02-23] MEDS: cefepime 1,000 MG in sodium chloride 0.9% (plus) 50 ML 100 MG IV (04:39)
[2023-02-23 04:43] LABS: Arterial Blood Gas Hematocrit 31.6 % (37-47); Base Excess ABG 0.3 mmol/L (-2.0-2.0); Blood Gas Allen Test Pos; Blood Gas Sample Site Radial, left; Blood Gas Sample Type Arterial; Carboxyhemoglobin 1.6 %THgb (0.4-20.1); HCO3 ABG 29.7 mmol/L (22-26); HGB O2 Sat 86.2 % (95-100); Ionized Calcium Level - ABG 1.3 mmol/L (1.1-1.4); Oxygen Device NC; Oxygen Saturation ABG 87.6; PO2 ABG 63.1 mmHg (80.0-100.0); Potassium Level - ABG 3.9 mmol/L (3.5-5.0); Total Hemoglobin 10.3 g/dL (12-16)
[2023-02-23 04:46] LABS: ABG PCO2 76.5 mmHg (35-45)
[2023-02-23 05:29] LABS: Partial Thromboplastin Time 90.1 SECONDS (23.9-36.7)
--- NOTE | 2023-02-23 06:00 | XRR_ITS ---
PROCEDURE INFORMATION: Exam: XR Chest Exam date and time: 02/23/2023 4:39 AM Age: 77 years old Clinical indication: Shortness of breath; Patient HX: F/u for pneumonia TECHNIQUE: Imaging protocol: Radiologic exam of the chest. Views: 1 view. Total images: 2 COMPARISON: CR (CHEST, ) 02/20/2023 5:40 PM FINDINGS: Tubes, catheters and devices: Right PICC line is noted with the tip in the SVC. Lungs: Pulmonary vascular congestion. Interval worsening of bilateral pleuroparenchymal disease. Pleural spaces: No pneumothorax. Heart/Mediastinum: Unremarkable. No cardiomegaly. Bones/joints: Diffuse osteopenia noted. Osseous structures are unchanged from the prior exam. XR/XR chest 1V portable [id number] IMPRESSION: 1. Pulmonary vascular congestion. 2. Interval worsening of bilateral pleuroparenchymal disease.
[2023-02-23] MEDS: budesonide 0.5 mg/2 mL Neb INHALATION ×2 (07:43→19:08)
--- NOTE | 2023-02-23 07:52 | CTR_ITS ---
PROCEDURE INFORMATION: Exam: CT Abdomen And Pelvis Without Contrast Exam date and time: 02/23/2023 10:55 AM Age: 77 years old Clinical indication: Other: Emir TECHNIQUE: Imaging protocol: Computed tomography of the abdomen and pelvis without contrast. Total images: 1 Radiation optimization: All CT scans at this facility use at least one of these dose optimization techniques: automated exposure control; mA and/or kV adjustment per patient size (includes targeted exams where dose is matched to clinical indication); or iterative reconstruction. REPORTING DATA: Count of CT and Cardiac NM exams in prior 12 months: This patient has received 3 known CTs and 0 known cardiac nuclear medicine studies in the 12 months prior to the current study. COMPARISON: MR lumbar spine wo con* [id number] 01/20/2023 2:17 PM RADIATION DOSE METRICS: Total DLP (mGy-cm): 385 FINDINGS: Lungs: Compressive atelectasis of the lungs. Multiple pulmonary nodules of varying size worrisome for metastatic disease. Inflammatory/infectious etiologies could give a similar appearance such as septic emboli. Pleural spaces: Moderate to large bilateral pleural effusions are present. Liver: Normal. No mass. Gallbladder and bile ducts: Cholelithiasis is present without cholecystitis. No gallbladder wall thickening or pericholecystic fluid collection. Pancreas: Normal. No ductal dilation. Spleen: Normal. No splenomegaly. Adrenal glands: Normal. No mass. Kidneys and ureters: 3.8 cm largest cyst noted in kidneys that have multiple simple renal cysts. No further evaluation required. Stomach and bowel: Fluid prominence in the colon with dilated small and large bowel loops could indicate prominent secretions due to infectious/inflammatory enteritis/colitis. Colonic diverticulosis is present without diverticulitis. Appendix: No evidence of appendicitis. Intraperitoneal space: A small volume of intra-abdominal ascites is present. Vasculature: Severe atherosclerotic disease is evident. Incidental phleboliths noted. Lymph nodes: Unremarkable. No enlarged lymph nodes. Urinary bladder: A Martinez catheter within urinary bladder. Reproductive: Prior hysterectomy noted. Bones/joints: Unremarkable. No acute fracture. Soft tissues: Unremarkable. CT/CT abdomen pelvis wo con [id number] IMPRESSION: 1. Moderate to large bilateral pleural effusions with compressive atelectasis. 2. Multiple pulmonary nodules of varying size worrisome for metastatic disease. Inflammatory/infectious etiologies could give a similar appearance such as septic emboli. 3. A small volume of intra-abdominal ascites is present. 4. Fluid prominence in the colon with dilated small and large bowel loops could indicate prominent secretions due to infectious/inflammatory enteritis/colitis. 5. Cholelithiasis is present without cholecystitis. No gallbladder wall thickening or pericholecystic fluid collection. COMMENTS: Consistent with the [employer]'s Incidental Findings Committee white paper (J Am Jordi Radiol 2018): Any incidental renal lesion less than 1 cm or classified as too small to characterize, or any incidental cystic renal lesion characterized as simple-appearing, is likely benign. No follow-up imaging is recommended for these lesions per consensus recommendations based on imaging criteria.
[2023-02-23 08:11] LABS: Glucose Point of Care 164 mg/dL (70-110)
[2023-02-23] MEDS: citalopram 20 mg Tablet PO (08:21)
[2023-02-23] MEDS: magnesium oxide 400 mg tablet PO (08:21)
[2023-02-23] MEDS: lidocaine 5% Patch 1 PATCH TOPICAL (08:21)
[2023-02-23] MEDS: aspirin 81 mg EC Tablet PO (08:21)
[2023-02-23] MEDS: quetiapine 25 mg Tablet PO ×2 (08:21→17:05)
[2023-02-23] MEDS: sodium chloride 0.9% 1,000 ML 50 ML IV (08:22)
[2023-02-23] MEDS: insulin lispro 100 unit/1 mL SUBCUT ×4 (08:23→21:03)
[2023-02-23 10:10] LABS: ABG PH Result 7.36 (7.35-7.45); Alveolar-Arterial Oxygen Gradi 10.3 mmHg (5-10); Arterial Blood Gas Hematocrit 30.8 % (37-47); Base Excess ABG 4.2 mmol/L (-2.0-2.0); Blood Gas Allen Test Pos; Blood Gas Operator Identificat MONRO; Blood Gas Sample Site Radial, right; Blood Gas Sample Type Arterial; Carboxyhemoglobin 2.1 %THgb (0.4-20.1); HCO3 ABG 30.6 mmol/L (22-26); Ionized Calcium Level - ABG 1.3 mmol/L (1.1-1.4); Methemoglobin 0.4 % (0.4-1.5); Oxygen Device BIPAP; Oxygen Saturation ABG 94.4; PO2 ABG 68.6 mmHg (80.0-100.0); Potassium Level - ABG 3.5 mmol/L (3.5-5.0)
[2023-02-23 11:39] LABS: Glucose Point of Care 144 mg/dL (70-110)
[2023-02-23] MEDS: vancomycin 750 MG in sodium chloride 0.9% 250 ML 250 MG IV (11:46)
[2023-02-23] MEDS: TRAMadol 50 mg Tablet PO (11:47)
[2023-02-23] MEDS: levETIRAcetam 500 mg Tablet 250 MG PO ×2 (11:49→17:04)
[2023-02-23 11:51] LABS: Bilirubin Urine Neg (Negative); Blood Urine 3+ (Negative); Glucose Urine UA Norm (Normal); Ketones Urine Negative (Negative); Nitrate Urine Negative (Negative); Protein Urine Neg (Negative); Urine Appearance Cloudy (CLEAR); Urine Color Yellow (Yellow); Urobilinogen Urine Norm (Negative); pH Urine 5 (5-7)
[2023-02-23 11:52] LABS: Add Urine Culture? Yes; Add Urine Microscopic? YES; Bacteria Urine 2+ /hpf; Leukocyte Esterase Urine 2+ (Negative); Squamous Epithelial Cell Urine 0-4 /hpf (0-5); WBC Urine 15-25 /hpf (0-5)
[2023-02-23 11:57] LABS: Partial Thromboplastin Time 41.3 SECONDS (23.9-36.7)
--- NOTE | 2023-02-23 12:23 | PC.SOCIAL ---
IMM update Imm updated with daugther at bedside. copy of page 2 provided. She verbalized understanding. copy in chart initialed, dated and timed.
[2023-02-23 13:47] LABS: Adenovirus Not Detected (NOT DETECT); Chlamydia Pneumoniae Not Detected (NOT DETECT); Coronavirus 229E,HKU1,NL63,OC4 Not Detected (NOT DETECT); Human Metapneumovirus Not Detected (NOT DETECT); Human Rhinovirus/Enterovirus Not Detected (NOT DETECT); Influenza A Not Detected (NOT DETECT); Influenza A H1 Not Detected (NOT DETECT); Influenza A H1-2009 Not Detected (NOT DETECT); Influenza A H3 Not Detected (NOT DETECT); Influenza B Not Detected (NOT DETECT); Mycoplasma Pneumoniae Not Detected (NOT DETECT); Parainfluenza Virus Type 1 Not Detected (NOT DETECT); Parainfluenza Virus Type 2 Not Detected (NOT DETECT); Parainfluenza Virus Type 3 Not Detected (NOT DETECT); Parainfluenza Virus Type 4 Not Detected (NOT DETECT); Respiratory Syncytial Virus A Not Detected (NOT DETECT); Respiratory Syncytial Virus B Not Detected (NOT DETECT); SARS-COV-2 Not Detected (NOT DETECT)
--- NOTE | 2023-02-23 15:22 | P.PN_ITS ---
Subjective Subjective: No acute events overnight. Today morning seen on AVAPS mode. Patient is laying comfortably in bed. Wakes up to verbal stimulus. On waking up is able to tell her name and names of her daughter who are at bedside. ABG appreciated today morning which was done on nasal cannula 4 L. Patient did have episode of nausea with possible vomiting at that point BiPAP was removed. Patient desaturated earlier today morning on 4 L oxygen supplementation hence AVAPS was placed. Document urine output of around 4 L since admission. In last 24 hours urine output of around 2700 cc. Blood work appreciated for persistent leukocytosis, stable hemoglobin, ABG earlier today morning showing a pH of 7.2, PCO2 76 with mild hypoxia, CMP showing creatinine of 1.7 Vitals/I&O/Wt Last Vital Signs Temp 97.8 F 02/23/23 12:30 Pulse 103 H 02/23/23 15:13 Resp 21 H 02/23/23 15:12 BP 116/59 02/23/23 12:30 Pulse Ox 98 02/23/23 15:13 O2 Del Method BiPAP 02/23/23 15:12 O2 Flow Rate 6 02/23/23 11:18 FiO2 40 02/23/23 15:13 02/23/23 02/23/23 02/23/23 06:59 14:59 22:59 Intake Total 369.817 / 1561.150 572.15 / 572.15 Output Total 325 / 1325 Balance 44.817 / 236.150 572.15 / 572.15 Physical Exam Narrative: General: No acute distress, AO x 1-2, slow to respond HEENT: PERRLA, pupils bilaterally equal and reactive Chest: Bilateral bronchial breath sounds with occasional rhonchi and coarse crackles, decreased air entry bilateral lower zone, on BiPAP CVS: S1-S2 regular, no murmurs, tachycardia, no gallops, no rubs Abdomen: Soft, nontender, no organomegaly, bowel sounds present but sluggish Neuro: No focal deficits, no facial deformity, moving all limbs Urinary Catheter Management: Martinez: Cath Placed During This Visit: yes Reason for Continuing Indwelling Catheter: Accurate Measurement of Urinary Output in Critically Ill Patients Urinary Catheter Date of Insertion: 02/20/23 Urinary Catheter Time of Insertion: 13:44 Data 02/23/23 03:07 02/23/23 03:07 Micro: Microbiology 08/05/23 17:15 MRSA Culture - Final Nose 02/22/23 17:15 Legionella Urinary Antigen - Final Unknown Source 02/22/23 17:15 Bacterial Antigens - Final Urine Kidney 02/23/23 00:52 Occult Blood (FIT) - Final Stool Routine Collection A&P Assessment and plan (1) Goals of care, counseling/discussion: (2) Non-STEMI (non-ST elevated myocardial infarction): (3) Acute congestive heart failure: Qualifiers: Heart failure type: diastolic Qualified Code(s): I50.31 - Acute diastolic (congestive) heart failure (4) Pneumonia: (5) Acute exacerbation of chronic obstructive airways disease: (6) MIGUEL (acute kidney injury): (7) Congestive heart failure: (8) Diabetes: Qualifiers: Diabetes mellitus type: type 2 Diabetes mellitus senior care insulin use: without computer terminal operator use Diabetes mellitus complication status: with hyperglycemia Qualified Code(s): E11.65 - Type 2 diabetes mellitus with hyperglycemia (9) Pancreatic mass: New diagnosis. Needs further work-up. Patient's creatinine elevated. Will do CTA abdomen pelvis or CT abdomen pelvis with contrast once patient clinically stable and creatinine stable. CEA, CA and 125, CA 19/9 elevated. High concerns for pancreatic malignancy for now. Discussed in detail with patient's DPOA at bedside. All the questions were answered. (10) Pulmonary nodule: (11) Ex-smoker: (12) Alzheimer disease: (13) Pleural effusion: Plan 77-year-old female who was recently discharged admitted back to the hospital with concerns for cardiogenic shock and hypercapnic and hypoxic respiratory failure, non-ST elevation DE found to have high D-dimer with CTA showing concerns for septic versus metastatic emboli, possible pancreatic mass and diffuse soft tissue anasarca, acute kidney injury. Acute hypercapnic and hypoxic respiratory failure: Most likely in setting of multiple pulmonary emboli bilaterally along with bilateral pleural effusion, possible pneumonia and diastolic congestive heart failure on admission. Currently patient is BiPAP dependent. Pulmicort twice daily, Xopenex, ipratropium every 4 hourly. Start on dexamethasone 6 mg IV daily after Solu-Medrol 125 mg one-time dose. Keep oxygen supplementation keeping saturation over 88%. Wean off BiPAP as possible. Maintain 3 to 4 hours of BiPAP free time f if possible. Acute congestive heart failure: Diastolic decompensated. Hold off on Lasix for now. Start on gentle IV hydration with normal saline at 50 cc/h while watching for fluid overload. Strict input output charting, daily weights. CT scan showing bilateral pleural effusion. We will plan for therapeutic ul trasound-guided thoracentesis as possible. Pneumonia: Cannot rule out mild aspiration pneumonia. Patient does have leukocytosis along with shock on admission. Sputum culture pending. MRSA swab negative. We will stop vancomycin. Also stop cefepime. Continue with Zosyn. High D-dimer: Appreciate CTA results with concerns for multiple small consolidation with possible of pneumonia, septic emboli versus pulmonary embolism versus metastatic disease in setting of new pancreatic mass. CEA, CA125, CA 19?19 elevated. For now continue with heparin drip. Cardiogenic shock: Resolved. Keep mean artery pressure 65. Levophed weaned off. Troponin cycled elevated. Recent echocardiogram showed an EF of 60% with grade 1 diastolic dysfunction. Repeat limited echocardiogram shows an EF of 57%, mild LVH, difficult to review RWMA. Patient not reliable historian given mild metabolic encephalopathy about chest pain. Sinus pause: Could be in setting of vasovagal as patient was being moved and was recently on Precedex. Hold off on Precedex. Continue to monitor on telemetry. If continues to have symptoms we will discuss further with cardiology. Currently with ongoing leukocytosis and as pneumonia is not ruled patient not a good candidate for permanent pacemaker implantation. Acute kidney injury: Appreciate urine lites. Persistent MIGUEL. Urine output slightly improved. Start on gentle IV hydration as above. CT abdomen pelvis to rule out obstructive nephropathy. Medical reconciliation done for nephrotoxic drugs. Goals of care discussion: Discussed in detail with patient's DPOA/daughters at [facility]. We discussed that patient's cardiogenic shock is improving though she still has significant congestive heart failure leading to hypoxic respiratory failure and metabolic encephalopathy requiring continuous BiPAP ventilation, changing diet as per speech evaluation given metabolic encephalopathy, overnight sinus pauses and a possibility with a high likelihood of pancreatic malignancy and the possibility of thromboembolic versus metastatic disease in the lungs. We discussed unfortunately given advanced age and multiple comorbidities patient is fairly sick. Daughters verbalized understanding. For now would continue to keep patient full code. Will discuss further with family and get back to us. Full code. Advance diet as per speech evaluation. Protonix for PUD prophylaxis Heparin drip will suffice as DVT prophylaxis. Attestations Medical Necessity Statement*: Requires further hospitalization for management of acute hypercapnic and hypoxic respiratory failure, bilateral pleural effusion with pulmonary emboli, diastolic heart failure, resolving cardiogenic shock, acute kidney injury Coding Level of Care Code Critical Care >/= 30 minutes Critical care time (in minutes): 80 The high probability of a clinically significant, sudden or life threatening deterioration, as referenced in this documentation, required my full and direct attention, intervention and personal management. The critical care time shown is in addition to time spent performing any reported separately billable procedures and includes the following: [x] Data and vital sign review and interpretation [x ] Patient assessment, examination and intervention [x] Medication orders and management [x] Patient/Family updates as able [x] Care Coordination and Docume ntation. Diagnoses Goals of care, counseling/discussion Z71.89 Non-STEMI (non-ST elevated myocardial infarction) I21.4 Acute congestive heart failure I50.31 Heart failure type: diastolic Pneumonia J18.9 Acute exacerbation of chronic obstructive airways disease J44.1 MIGUEL (acute kidney injury) N17.9 Congestive heart failure I50.9 Diabetes E11.65 Diabetes mellitus type: type 2 Diabetes mellitus senior care insulin use: without senior care use Diabetes mellitus complication status: with hyperglycemia Pancreatic mass K86.89 Pulmonary nodule R91.1 Ex-smoker Z87.891 Alzheimer disease G30.9; F02.80 Pleural effusion J90
[2023-02-23 16:52] LABS: Glucose Point of Care 196 mg/dL (70-110)
[2023-02-23] MEDS: dexamethasone 10 mg/mL INJ 6 MG IVP (17:05)
--- NOTE | 2023-02-23 18:17 | ECG_ITS ---
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 Measurements Intervals [place] Rate: 98 P: 70 KS: 162 QRS: 52 QRSD: 93 T: 31 QT: 340 QTc: 436 Interpretive Statements SINUS RHYTHM POSSIBLE LEFT ATRIAL ENLARGEMENT [-0.1mV P-WAVE IN V1/V2] POSSIBLE ANTERIOR MYOCARDIAL INFARCTION , OF INDETERMINATE AGE [30 ms Q WAVE IN V3/V4, OR R < 0.2 mV IN V4] Compared to ECG 02/20/2023 12:26:40 Sinus tachycardia no longer present Myocardial infarct finding still present Electronically Signed On 02-23-2023 19:55:12 CDT by Jeff Toro M.D. [email or web address]
[2023-02-23 18:20] LABS: ABG PH Result 7.23 (7.35-7.45); Alveolar-Arterial Oxygen Gradi 16.7 mmHg (5-10); Base Excess ABG 0.7 mmol/L (-2.0-2.0); Blood Gas Allen Test Pos; Blood Gas Operator Identificat MONRO; Blood Gas Sample Site Brachial, left; Blood Gas Sample Type Arterial; HCO3 ABG 29.1 mmol/L (22-26); HGB O2 Sat 90.2 % (95-100); Ionized Calcium Level - ABG 1.3 mmol/L (1.1-1.4); Methemoglobin 0.5 % (0.4-1.5); Oxygen Device BIPAP; Oxygen Saturation ABG 92.5; PO2 ABG 71.5 mmHg (80.0-100.0); Potassium Level - ABG 3.6 mmol/L (3.5-5.0); Total Hemoglobin 9.1 g/dL (12-16)
[2023-02-23 18:22] LABS: ABG PCO2 69.7 mmHg (35-45)
[2023-02-23] MEDS: sodium chloride 0.9% 500 ML 250 ML IV (18:40)
[2023-02-23] MEDS: albumin 25 G/100 ML BAG 60 G IV (19:55)
[2023-02-23 19:59] LABS: Partial Thromboplastin Time 117.5 SECONDS (23.9-36.7)
--- NOTE | 2023-02-23 20:04 | PC.NURSE ---
Dr. Salomon called unit @192. New order for Albumin infusion Q8HR starting NOW, BMP NOW, NO pain meds over night, and do not give Remeron/Xanax. See MAR for medication administration.
[2023-02-23 20:19] LABS: Anion Gap 13.4 (5-19); Blood Urea Nitrogen 57 mg/dL (8-23); Carbon Dioxide 23 mmol/L (22-29); Chloride 108 mmol/L (98-107); Glucose 167 mg/dL (65-115); Osmolality Calculated 312 mOsm/kg (285-295); Potassium 3.4 mmol/L (3.5-5.1); Sodium 141 mmol/L (136-145)
[2023-02-23 21:00] LABS: Glucose Point of Care 201 mg/dL (70-110)
[2023-02-24] VITALS (92 sets, daily range): BP systolic 52–120; BP diastolic 31–67; PULSE 0–109; RESP 0–33; TEMP 36.1–36.9; O2SAT 0–100
[2023-02-24] MEDS: heparin drip 25,000 UNIT/500 ML PREMIX 20 UNIT IV
[2023-02-24] MEDS: piperacillin-tazobactam 3.375 GM in sodium chloride 0.9% (plus) 50 ML IV ×2 (00:13→10:16)
[2023-02-24] MEDS: levalbuterol 0.63 mg/3 mL Neb INHALATION ×2 (02:59→07:13)
[2023-02-24] MEDS: ipratropium 0.5 mg/2.5 mL Neb INHALATION ×2 (02:59→07:13)
[2023-02-24 03:37] LABS: Hemoglobin 7.5 g/dL (11.5-15.3); Lymphocytes # 0.2 10^3/uL (0.8-4.8); Lymphocytes % 3.1 %; Mean Corpuscular HGB Conc 28.8 g/dL (30.0-36.0); Mean Corpuscular Hemoglobin 29.8 pg (28.0-34.0); Mean Corpuscular Volume 103.2 fl (81-99); Mean Platelet Volume 9.8 fL (7.4-10.4); Monocytes # 0.3 10^3/uL (0.2-0.9); Monocytes % 3.8 %; Neutrophils # 6.52 10^3/uL (1.8-7.7); Neutrophils % 92.7 %; Nucleated Red Blood Cells % 0 %; Platelet Count 220 10^3/cmm (130-400); Red Blood Count 2.52 10^6/uL (4.1-5.3); Red Cell Distribution Width 15.3 % (12.1-15.1)
[2023-02-24] MEDS: albumin 25 G/100 ML BAG 601 G IV (03:45)
--- NOTE | 2023-02-24 03:54 | PC.NURSE ---
BIPAP: Pt ripped BIPAP mask of @0322, stating I'm done, I'm done, I'm done. I don't want this. I don't want this. Don't do this do me . Oxymask @6L applied. Attempted to give pt a drink of water to clear mouth and promote comfort on the BIPAP. Pt would not close mouth around straw. Uncretain if pt can safely swallow at this time. Pt Less than 20 minutes later pt's work of breathing has notably increased. Accessory muscle use noted. Slightly blue in the face. SpO2 dropped to 88%. Pt is too short of breath to speak in a complete sentence. BIPAP reapplied. SpO2 recovered to 92%. Lactulose 20g not given. Pt can not tolerate being off BIPAP and may not be able to safely swallow at this time. Dr. Maxwell made aware. No new orders at this time.
[2023-02-24 04:03] LABS: Partial Thromboplastin Time 118.5 SECONDS (23.9-36.7)
[2023-02-24 04:04] LABS: Albumin Level 3.2 g/dL (3.5-5.2); Alkaline Phosphatase 152 U/L (35-105); Blood Urea Nitrogen 69 mg/dL (8-23); Calcium 7.8 mg/dL (8.5-10.5); Carbon Dioxide 28 mmol/L (22-29); Chloride 105 mmol/L (98-107); Globulin 2.1 g/dL (1.3-4.6); Glucose 178 mg/dL (65-115); Osmolality Calculated 321 mOsm/kg (285-295); Sodium 143 mmol/L (136-145); Total Bilirubin 0.2 mg/dL (0.15-1.2); Total Protein 5.3 g/dL (6.6-8.7)
[2023-02-24 05:48] LABS: Alanine Aminotransferase 29 U/L (0-33); Aspartate Amino Transferase 16 U/L (0-32)
[2023-02-24] MEDS: budesonide 0.5 mg/2 mL Neb INHALATION (07:13)
[2023-02-24 09:46] LABS: Partial Thromboplastin Time 84.6 SECONDS (23.9-36.7)
[2023-02-24 10:15] LABS: ABG PH Result 7.27 (7.35-7.45); Arterial Blood Gas Hematocrit 21.7 % (37-47); Base Excess ABG -1.4 mmol/L (-2.0-2.0); Blood Gas Allen Test Pos; Blood Gas Operator Identificat GD; Blood Gas Sample Site Radial, right; Blood Gas Sample Type Arterial; Carboxyhemoglobin 2.5 %THgb (0.4-20.1); HCO3 ABG 25.6 mmol/L (22-26); Ionized Calcium Level - ABG 1.2 mmol/L (1.1-1.4); Methemoglobin 0.5 % (0.4-1.5); Oxygen Device BIPAP; Oxygen Saturation ABG 91.8; PO2 ABG 61.2 mmHg (80.0-100.0); Potassium Level - ABG 3.9 mmol/L (3.5-5.0); Total Hemoglobin 7.1 g/dL (12-16)
[2023-02-24] MEDS: levETIRAcetam 500 mg Tablet 250 MG PO (10:17)
[2023-02-24] MEDS: citalopram 20 mg Tablet PO (10:17)
[2023-02-24] MEDS: quetiapine 25 mg Tablet PO (10:17)
[2023-02-24 11:13] LABS: Glucose Point of Care 225 mg/dL (70-110)
[2023-02-24] MEDS: morphine 4 mg/mL SDV 1 mL 1 MG IVP (12:04)
[2023-02-24] MEDS: morphine 4 mg/mL SDV 1 mL IVP ×4 (14:57→20:23)
--- NOTE | 2023-02-24 15:35 | PM.PN ---
Subjective Subjective: Overnight patient had a restless night. Today on examination patient is more disoriented, looking uncomfortable. Mean arterial pressure have maintained around 65 on fluids. Not on vasopressors. ABGs in the morning showed persistent respiratory acidosis on AVAPS with pH of 7.27, PCO2 56, PO2 of 61. Poor urine output in last 24 hours. Blood work today done shows no leukocytosis, hemoglobin down to 7.5, platelet of 220, CMP showing normal sodium and potassium along with BUN of 69 and creatinine 2.4. Patient's daughter, son-in-law and grandson present at bedside. Goals of care discussion done in detail. No further pauses on telemetry monitoring. Vitals/I&O/Wt Last Vital Signs Temp 98.4 F 02/24/23 08:15 Pulse 107 H 02/24/23 11:30 Resp 22 H 02/24/23 11:30 BP 83/43 02/24/23 11:30 Pulse Ox 91 02/24/23 11:30 O2 Del Method BiPAP 02/24/23 07:05 O2 Flow Rate 6 02/24/23 03:30 FiO2 30 02/24/23 12:00 02/24/23 02/24/23 02/24/23 06:59 14:59 22:59 Intake Total 239.793 / 2227.820 120 / 120 Output Total 100 / 250 Balance 139.793 / 1977.820 120 / 120 Physical Exam Narrative: General: AAO x1, confused, looking restless on nasal cannula HEENT: PERRLA, pupils bilaterally equal and reactive Chest: Bilateral bronchial breath sounds with occasional rhonchi and coarse crackles, decreased air entry bilateral lower zone, on BiPAP CVS: S1-S2 regular, no murmurs, tachycardia, no gallops, no rubs Abdomen: Soft, nontender, no organomegaly, bowel sounds present but sluggish Neuro: No focal deficits, no facial deformity, moving all limbs Urinary Catheter Management: Martinez: Cath Placed During This Visit: yes Reason for Continuing Indwelling Catheter: Accurate Measurement of Urinary Output in Critically Ill Patients Urinary Catheter Date of Insertion: 02/20/23 Urinary Catheter Time of Insertion: 13:44 Data 02/24/23 03:25 02/24/23 03:25 Micro: Microbiology 02/22/23 09:34 Urine Culture - Preliminary Urine,Clean Catch Yeast species 02/22/23 17:15 MRSA Culture - Final Nose A&P Assessment and plan (1) Goals of care, counseling/discussion: (2) Non-STEMI (non-ST elevated myocardial infarction): (3) Acute congestive heart failure: Qualifiers: Heart failure type: diastolic Qualified Code(s): I50.31 - Acute diastolic (congestive) heart failure (4) Pneumonia: (5) Acute exacerbation of chronic obstructive airways disease: (6) MIGUEL (acute kidney injury): (7) Congestive heart failure: (8) Diabetes: Qualifiers: Diabetes mellitus type: type 2 Diabetes mellitus penitentiary insulin use: without branch customer service representative use Diabetes mellitus complication status: with hyperglycemia Qualified Code(s): E11.65 - Type 2 diabetes mellitus with hyperglycemia (9) Pancreatic mass: New diagnosis. Needs further work-up. Patient's creatinine elevated. Will do CTA abdomen pelvis or CT abdomen pelvis with contrast once patient clinically stable and creatinine stable. CEA, CA and 125, CA 19/9 elevated. High concerns for pancreatic malignancy for now. Discussed in detail with patient's DPOA at bedside. All the questions were answered. (10) Pulmonary nodule: (11) Ex-smoker: (12) Alzheimer disease: (13) Pleural effusion: Plan 77-year-old female who was recently discharged admitted back to the hospital with concerns for cardiogenic shock and hypercapnic and hypoxic respiratory failure, non-ST elevation AR found to have high D-dimer with CTA showing concerns for septic versus metastatic emboli, possible pancreatic mass and diffuse soft tissue anasarca, acute kidney injury. Acute hypercapnic and hypoxic respiratory failure: Most likely in setting of multiple pulmonary emboli bilaterally along with bilateral pleural effusion, possible pneumonia and diastolic congestive heart failure on admission. Currently patient is BiPAP dependent. Pulmicort twice daily, Xopenex, ipratropium every 4 hourly. Start on dexamethasone 6 mg IV daily after Solu-Medrol 125 mg one-time dose. Keep oxygen supplementation keeping saturation over 88%. Wean off BiPAP as possible. Maintain 3 to 4 hours of BiPAP free time f if possible. Acute congestive heart failure: Diastolic decompensated. Hold off on Lasix for now. Start on gentle IV hydration with normal saline at 50 cc/h while watching for fluid overload. Strict input output charting, daily weights. CT scan showing bilateral pleural effusion. We will plan for therapeutic ultrasound-guided thoracentesis as possible. Pneumonia: Cannot rule out mild aspiration pneumonia. Patient does have leukocytosis along with shock on admission. Sputum culture pending. MRSA swab negative. We will stop vancomycin. Also stop cefepime. Continue with Zosyn. High D-dimer: Appreciate CTA results with concerns for multiple small consolidation with possible of pneumonia, septic emboli versus pulmonary embolism versus metastatic disease in setting of new pancreatic mass. CEA, CA125, CA 19?19 elevated. For now continue with heparin drip. Cardiogenic shock: Resolved. Keep mean artery pressure 65. Levophed weaned off. Troponin cycled elevated. Recent echocardiogram showed an EF of 60% with grade 1 diastolic dysfunction. Repeat limited echocardiogram shows an EF of 57%, mild LVH, difficult to review RWMA. Patient not reliable historian given mild metabolic encephalopathy about chest pain. Sinus pause: Could be in setting of vasovagal as patient was being moved and was recently on Precedex. Hold off on Precedex. Continue to monitor on telemetry. If continues to have symptoms we will discuss further with cardiology. Currently with ongoing leukocytosis and as pneumonia is not ruled patient not a good candidate for permanent pacemaker implantation. Acute kidney injury: Appreciate urine lites. Persistent MIGUEL. Urine output slightly improved. Start on gentle IV hydration as above. CT abdomen pelvis to rule out obstructive nephropathy. Medical reconciliation done for nephrotoxic drugs. Plan for the day today and originally was to start patient on IV fluids after [place] exam, continuing current antibiotics, follow blood culture results, possible thoracentesis. Repeating ABG later in the day and transition to nasal cannula as possible. Repeating labs and possible blood transfusion. Holding off on heparin for now for possible thoracentesis acute anemia. Goals of care discussion: Discussed in detail with patient's daughter at bedside. Also present is patient's son-in-law. We discussed that unfortunately patient does not seem to be improving and having persistent respiratory acidosis even though is on BiPAP, getting more confused, poor urine output along with worsening of renal functions. We discussed that patient possibly need a thoracentesis for better respiratory effort. Patient's family concerned about pain medications. We discussed that unfortunately at this point given her pain medication is making her more drowsy, decreased respiratory drive discussing worsening of hypercapnia and respiratory acidosis. Daughter verbalized understanding. As per daughter their main goal is to get patient back to baseline if possible. We did discuss that there is a high chance that patient would not get back to her baseline given the seriousness of the illness. As per the daughter for patient quality of life is more important than quantity of life. He would want to go ahead and start patient on comfort measures as the do not want patient to suffer. We did discuss comfort measures would mean cessation of any active treatment with IV antibiotics, steroids, frequent blood work, thoracentesis and the heart medical concentration would change more on comfort than getting her better and let nature takes its own course which could even mean that patient would . Daughter verbalized understanding and wants to go ahead with comfort measures. Comfort measures?DNR/DNI Advance diet as per speech evaluation. Protonix for PUD prophylaxis Heparin drip will suffice as DVT prophylaxis. Attestations Medical Necessity Statement*: Requires further hospitalization for comfort measures status only while safe discharge planning discharge. Coding Level of Care Code Critical Care >/= 30 minutes Critical care time (in minutes): 70 The high probability of a clinically significant, sudden or life threatening deterioration, as referenced in this documentation, required my full and direct attention, intervention and personal management. The critical care time shown is in addition to time spent performing any reported separately billable procedures and includes the following: [x] Data and vital sign review and interpretation [x] Patient assessment, examination and intervention [x] Medication orders and management [x] Patient/Family updates as able [x] Care Coordination and Documentation. Diagnoses Goals of care, counseling/discussion Z71.89 Non-STEMI (non-ST elevated myocardial infarction) I21.4 Acute congestive heart failure I50.31 Heart failure type: diastolic Pneumonia J18.9 Acute exacerbation of chronic obstructive airways disease J44.1 MIGUEL (acute kidney injury) N17.9 Congestive heart failure I50.9 Diabetes E11.65 Diabetes mellitus type: type 2 Diabetes mellitus branch customer service representative insulin use: without penitentiary use Diabetes mellitus complication status: with hyperglycemia Pancreatic mass K86.89 Pulmonary nodule R91.1 Ex-smoker Z87.891 Alzheimer disease G30.9; F02.80 Pleural effusion J90
[2023-02-24] MEDS: LORazepam 2 mg/mL INJ 1 mL IVP ×2 (16:11→20:02)
--- NOTE | 2023-02-24 19:29 | PC.NURSE ---
Spoke w/ family @bedside and daughter (Marta), family requested medication to keep her comfortable. Medication options reviewed. See MAR for medication administration.
[2023-02-24] MEDS: glycopyrrolate 0.2 mg/mL SDV 2 mL IV (20:24)
--- NOTE | 2023-02-24 21:05 | PC.NURSE ---
Addendum entered by Jennifer Buitrago RN 02/24/23 21:24: Patient expiration verified with this nurse. Original Note: TOD: 204102/24/23. Expiration verification w/ [address] Uriostegui called @2051. MTS called @2055. MTS released @2058 by Sindy Pacheco. Reference #[id number]. DaughterMarta (DPOA) requested body of Maria M Klein be delivered to [place], [place].
--- NOTE | 2023-02-24 21:11 | PC.NURSE ---
Saving Site: Zhang Kong called unit and released the body of Maria M Klein @2109.
--- NOTE | 2023-02-24 22:54 | PC.NURSE ---
Addendum entered by Sandy Wayne RN 02/24/23 23:29: Andrea renewals representative on unit @1019. Body of Maria M Klein left unit w/ Andrea renewals representative @5375. Original Note: Post-mortem care completed @2230. Andrea Home called @1767.
--- NOTE | 2023-02-25 16:55 | PM.DDS ---
Discharge Providers DDS Date of Admission: 02/20/23 13:30 Date Summary Completed: 02/25/23 Attending Provider at Admission: Wesley Uriostegui MD Time of : 20:42 Attending Provider at Discharge: Ozzie Salomon MD Primary Care Provider: Coco Flores MD DS Diagnoses Hospital Diagnoses (1) Goals of care, counseling/discussion: (2) Non-STEMI (non-ST elevated myocardial infarction): (3) Acute congestive heart failure: Qualifiers: Heart failure type: diastolic Qualified Code(s): I50.31 - Acute diastolic (congestive) heart failure (4) Pneumonia: (5) Acute exacerbation of chronic obstructive airways disease: (6) MIGUEL (acute kidney injury): (7) Congestive heart failure: (8) Diabetes: Qualifiers: Diabetes mellitus type: type 2 Diabetes mellitus assisted insulin use: without assisted use Diabetes mellitus complication status: with hyperglycemia Qualified Code(s): E11.65 - Type 2 diabetes mellitus with hyperglycemia (9) Pancreatic mass: (10) Pulmonary nodule: (11) Ex-smoker: (12) Alzheimer disease: (13) Pleural effusion: Reason for Visit Reason for Visit sob Brief History: History as per HPI: Maria M Klein is a 77 year old female with history of preserved ejection fraction, chronic hypoxia required 3 L, most recent discharge from the hospital to [facility] [place] presented with chief complaint of unresponsiveness.? Daughter is at the bedside stating that the call at 9 AM when she was not responding to the phone call she asked nursing staff to check on her around 933 AM she was told that she is unresponsive she was sent to the hospital for further evaluation, in the ER she was diagnosed with cardiogenic shock she was put on dopamine, she was transferred to the ICU for management of cardiogenic shock.? She also had acute hypercapnic respiratory failure.? She was put on BiPAP.? By the time I saw her in the ICU she was awake and alert and trying to rip off her mask, we discussed goals of care patient gave confusing answers, daughters were at the bedside, for now we will keep her full code, she is very anxious we had to put her on Precedex, PICC line was placed. And requesting another ABG patient able to move her extremities, no signs of stroke at all, clinically looks fluid overloaded Summary Date and Time of Date of : 02/24/23 Time of : 20:42 Summary Summary: Patient was admitted to the ICU for further evaluation and management of acute hypoxic and hypercapnic respiratory failure in setting of congestive heart failure, possible pulmonary embolism and COPD exacerbation. On admission CTA was done which was concerning for bilateral thromboembolic emboli versus septic emboli versus metastatic disease with concerns for possibility of malignancy with pancreatic mass. She was started on broad-spectrum antibiotics and anticoagulation with heparin. For hypercapnic and hypoxic respiratory failure patient was placed on BiPAP. Hospitalization was complicated by her having altered mental status in setting of sepsis, hypercapnia and hyperammonemia. Patient's renal function continued to get worsen. Given patient's advanced age, possibility of extensive malignancy with primary being pancreatic cancer with elevated CEA, CEA 125, CA 19/9, worsening renal function, septic emboli versus pulmonary embolism leading to hypercapnic respiratory failure and severe altered mental status multiple goals of care discussions were done with family members, patient's DPOA/daughter at bedside. Family decided for patient to be transitioned over to comfort care measures on 02/24. Patient on 02/24 at 8:42 PM at comfortable status with family at bedside. Additional Data Confirmation of as documented by pronouncing clinician: no pulse, no respirations and no heart sounds Family: at bedside Additional persons at bedside: nursing staff Attending/PCP notified?: I am attending Was code activated?: No Autopsy requested?: No Advance directives?: Yes Hospice patient?: Yes Discharge Plan Discharge Patient Disposition: At Medical Facility Condition: Stable Prescriptions: No Action aspirin [Adult Aspirin Regimen] 81 mg tablet,delayed release (DR/EC) 81 mg PO QAM (DME) FreeStyle Lite Strips Strip See Rx Instructions .Route Qty: 100 3RF Rx Instructions: to use once daily in freestyle meter 90 day supply (DME) blood-glucose meter [FreeStyle Lite Meter] Kit See Rx Instructions .Route Qty: 1 0RF Rx Instructions: use once daily to check blood sugar citalopram 20 mg tablet 40 mg PO DAILY Qty: 180 3RF Rx Instructions: Instructed by Dr. Flores on 02/06/23 to hold for several days then decrease dose to 20mg daily galantamine 24 mg capsule,ext rel. pellets 24 hr 24 mg PO QAM Qty: 90 3RF Rx Instructions: administer with breakfast 340B levetiracetam [Keppra XR] 500 mg tablet extended release 24 hr 500 mg PO DAILY Qty: 90 3RF Rx Instructions: 340 be Please refill as a 90-day supply with 3 refills clopidogrel 75 mg tablet 75 mg PO QAM 90 Days Qty: 90 3RF lisinopril 20 mg tablet 20 mg PO QAM 90 Days Qty: 90 2RF alprazolam 0.5 mg tablet 0.5 mg PO BID PRN (Reason: Anxiety) Qty: 60 3RF Spiriva with HandiHaler 18 mcg capsule, w/inhalation device 1 cap inhalation DAILY Qty: 30 5RF hydrocodone-acetaminophen 5-325 mg tablet 1 tab PO Q12H PRN (Reason: pain) 30 Days Qty: 60 0RF celecoxib [Celebrex] 200 mg capsule 200 mg PO BID Qty: 60 2RF Women's 50 Plus Daily Formula 400 mcg-500 mg calcium-20 mcg Tablet 1 tab PO DAILY (DME) lancet-gluc test strip-needles Combo Pack See Rx Instructions .Route Qty: 300 0RF Rx Instructions: As directed amlodipine 2.5 mg tablet 2.5 mg PO BID furosemide 40 mg Tablet 40 mg PO DAILY@0800 30 Days Qty: 30 0RF quetiapine 25 mg tablet 25 mg PO BID mirtazapine 15 mg tablet 15 mg PO BEDTIME Humalog U-100 Insulin 100 unit/mL solution 2 unit SUBCUT TID Levemir FlexPen 100 unit/mL (3 mL) insulin pen 100 unit SUBCUT BEDTIME albuterol sulfate 2.5 mg /3 mL (0.083 %) solution for nebulization 2.5 mg inhalation Q4H PRN (Reason: Shortness Of Breath) potassium chloride 20 mEq tablet,ER particles/crystals 20 meq PO DAILY Milk of Magnesia 400 mg/5 mL Suspension 2,400 mg PO DAILY PRN (Reason: Constipation) Dulcolax (bisacodyl) 10 mg Suppository 10 mg TN DAILY PRN (Reason: Constipation) Fleet Enema 19-7 gram/118 mL Enema 118 ml TN DAILY PRN (Reason: Constipation) Januvia 50 mg tablet 50 mg PO DAILY Probable Cause of Probable cause of : Pancreatic mass DS Attestations Time Spent in /Discharge Care*: greater than 30 min Quality - AMI: AMI present?: No Quality - Stroke: CVA present?: No Quality - VTE: VTE present?: Yes Coding Level of Care Code 75190 Total time (in minutes) for Discharge: 50 Diagnoses Goals of care, counseling/discussion Z71.89 Non-STEMI (non-ST elevated myocardial infarction) I21.4 Acute congestive heart failure I50.31 Heart failure type: diastolic Pneumonia J18.9 Acute exacerbation of chronic obstructive airways disease J44.1 MIGUEL (acute kidney injury) N17.9 Congestive heart failure I50.9 Diabetes E11.65 Diabetes mellitus type: type 2 Diabetes mellitus assisted insulin use: without assisted use Diabetes mellitus complication status: with hyperglycemia Pancreatic mass K86.89 Pulmonary nodule R91.1 Ex-smoker Z87.891 Alzheimer disease G30.9; F02.80 Pleural effusion J90
--- NOTE | 2023-03-02 08:01 | ED_ITS ---
HPI - General Adult General: Chief complaint: Altered Mental Status Stated complaint: sob Time Seen by Provider: 02/20/23 10:16 Source: family and EMS Mode of arrival: EMS History of Present Illness: 77-year-old female who presents to the emergency room with complaints of unresponsiveness. Patient was at a alf she is brought in by EMS had difficult time waking her up she is able to follow commands but does not give a ny verbal response she is in significant respiratory distress on arrival she was on 20 mask at 15 L. We switched her to BiPAP which did improve her oxygen saturations however she has some irritated by the BiPAP. She does not appear to have any focal neurologic deficits she cannot really contribute to her history at all. Onset (ago): hour(s) Severity: severe Relieving factors: none Exacerbating factors: none Review of Systems General: Reports: ROS unobtainable due to medical condition and ROS unobtaina ble due to mental status PFSH ED PFSH: Medical History Alzheimer disease Alzheimer's disease Anxiety Chronic obstructive pulmonary disease Depression Diabetes DKA (diabetic ketoacidosis) Generalized epilepsy History of stroke History of tobacco abuse Hypercholesteremia Hypertension Hyponatremia Surgical History History of tonsillectomy History of total hysterectomy Social History Smoking and tobacco status: former smoker Quit status (tobacco): has quit using tobacco Year quit tobacco: 2019 2 PACK PER DAY X 58 Alcohol intake: never Substance/Drug Use: never Physical Exam HENMT: COMMON NORMALS: normocephalic, atraumatic and hearing grossly normal bilaterally HEAD & SCALP: normocephalic and atraumatic Resp: EFFORT & INSPECTION: Yes abnormal respiratory pattern, Yes respiratory distress and Yes uses accessory muscles AUSCULTATION: crackles and diminished lung sounds Cardio: COMMON NORMALS: regular rhythm and No murmurs present (Cardio) RATE: tachycardic RHYTHM: regular rhythm GI: COMMON NORMALS: Soft to palpation and No hepatosplenomegaly present AUSCULTATION: Yes normoactive bowel sounds PALPATION: Yes Soft to palpation, No Tenderness to palpation present (GI), No Guarding due to palpation present (GI) and Yes No hepatosplenomegaly present Extremity: COMMON NORMALS: normal to inspection, capillary refill normal and no calf tenderness GENERAL: Yes edema Skin: COMMON NORMALS: no rashes or lesions noted GENERAL SKIN EXAM: no rashes or lesions noted Course Vital Signs: Vital signs: Vital Signs Temperature 98.4 F 02/24/23 08:15 Pulse Rate 0 L 02/24/23 20:45 Respiratory Rate 0 L 02/24/23 20:45 Blood Pressure 52/37 02/24/23 20:30 Pulse Oximetry 0 L 02/24/23 20:45 Oxygen Delivery Me thod Room Air 02/24/23 20:30 Oxygen Flow Rate 6 02/24/23 03:30 Fraction of Inspir ed Oxygen 30 02/24/23 12:00 MDM - General Adult Medical Decision Making Patient presents in congestive heart failure with cardiogenic shock. I suspect she may have also had a seizure. Her level of consciousness improved while she was here she does not appear to have any focal neurologic deficits head CT shows old stroke but nothing new. Discussed with family still wish her to be a full code. Discussed with hospitalist will admit to the ICU concurrently on BiPAP. Medical Records I reviewed the patient's medical records. Lab Data I reviewed the patient's lab results. 02/24/23 03:25 02/24/23 03:[address] 02/20/23 10:16 IMPRESSION: 1. No acute intracranial hemorrhage or edema. 2. Advanced small vessel ischemic changes throughout the white matter with bilateral lacunar infarcts. No interval change. Chest CTA 02/21/23 09:11 IMPRESSION: 1. No central or proximal pulmonary artery emboli. 2. Moderate bilateral layering pleural effusions. 3. Multifocal pulmonary opacifications and spiculated nodules. Differential i ncludes pneumonia, septic emboli and metastatic disease. Recommend follow-up chest CT with IV contrast after treatment for patient's acute presentation. 4. Diffuse soft tissue anasarca. 5. Soft tissue mass centered in the expected location of the celiac axis, pancreatic head and proximal body. Mass measures 6.1 x 4.4 cm. Differential includes lymphadenopathy and pancreatic mass. Recommend follow-up CT abdomen and pelvis with IV and oral contrast as patient's condition permits. Recommend delay of at least 24 hours before additional IV contrast is given. Chest X-Ray 02/23/23 06:00 IMPRESSION: 1. Pulmonary vascular congestion. 2. Interval worsening of bilateral pleuroparenchymal disease. Abdomen/Pelvis CT 02/23/23 07:52 IMPRESSION: 1. Moderate to large bilateral pleural effusions with compressive atelectasis. 2. Multiple pulmonary nodules of varying size worrisome for metastatic disease. Inflammatory/infectious etiologies could give a similar appearance such as septic emboli. 3. A small volume of intra-abdominal ascites is present. 4. Fluid prominence in the colon with dilated small and large bowel loops could indicate prominent secretions due to infectious/inflammatory enteritis/colitis. 5. Cholelithiasis is present without cholecystitis. No gallbladder wall thickening or pericholecystic fluid collection. COMMENTS: Consistent with the [employer]'s Incidental Findings Committee white paper (J Am Jordi Radiol 2018): Any incidental renal lesion less than 1 cm or classified as too small to characterize, or any incidental cystic renal lesion characterized as simple-appearing, is likely benign. No follow-up imaging is recommended for these lesions per consensus recommendations based on imaging criteria. Laboratory Results WBC 14.8 10^3/uL (4.0-10.0) H 02/20/23 11:17 RBC 3.75 10^6/uL (4.1-5.3) L 02/20/23 11:17 Hgb 11.4 g/dL (11.5-15.3) L 02/20/23 11:17 Hct 37.9 % (37.0-47.0) 02/20/23 11:17 MCV 101.1 fl (81-99) H 02/20/23 11:17 MCH 30.4 pg (28.0-34.0) 02/20/23 11:17 MCHC 30.1 g/dL (30.0-36.0) 02/20/23 11:17 RDW 14.7 % (12.1-15.1) 02/20/23 11:17 Plt Count 411 10^3/cmm (130-400) H 02/20/23 11:17 MPV 9.3 fL (7.4-10.4) 02/20/23 11:17 Neut % (Auto) 94.5 % 02/20/23 11:17 Lymph % (Auto) 2.0 % 02/20/23 11:17 Kimble % (Auto) 2.6 % 02/20/23 11:17 Eos % (Auto) 0.1 % 02/20/23 11:17 Baso % (Auto) 0.2 % 02/20/23 11:17 Neut # (Auto) 13.99 10^3/uL (1.8-7.7) H 02/20/23 11:17 Lymph # (Auto) 0.3 10^3/uL (0.8-4.8) L 02/20/23 11:17 Kimble # (Auto) 0.4 10^3/uL (0.2-0.9) 02/20/23 11:17 Eos # (Auto) 0.0 10^3/uL (0.0-0.8) 02/20/23 11:17 Baso # (Auto) 0.0 10^3/uL (0.0-0.1) 02/20/23 11:17 Nucleated RBC % (auto) 0 % 02/20/23 11:17 Nucleated RBCs # 0.0 /100WBC 02/20/23 11:17 D-Dimer 6.42 ug/mIFEU (0-0.59) H 02/20/23 11:17 Specimen Type Arterial 02/20/23 13:02 Sample Site Radial, right 02/20/23 13:02 ABG pH 7.27 (7.35-7.45) L 02/20/23 13:02 ABG pCO2 60.7 mmHg (35-45) H* 02/20/23 13:02 ABG pO2 84.6 mmHg (80.0-100.0) 02/20/23 13:02 ABG HCO3 28.1 mmol/L (22-26) H 02/20/23 13:02 ABG O2 Saturation > 100.0 02/20/23 10:06 ABG Base Excess 0.2 mmol/L (-2.0-2.0) 02/20/23 13:02 Austin Test Pos 02/20/23 13:02 A-a O2 Gradient 47.6 mmHg (5-10) H 02/20/23 10:06 Hematocrit 35.4 % (37-47) L 02/20/23 13:02 Hgb O2 Saturation 98.5 % (95-100) 02/20/23 10:06 Carboxyhemoglobin 1.8 %THgb (0.4-20.1) 02/20/23 10:06 Methemoglobin 0.5 % (0.4-1.5) 02/20/23 10:06 Total Hemoglobin 12.1 g/dL (12-16) 02/20/23 10:06 Sodium 140.0 mmol/L (131-143) 02/20/23 10:06 Potassium 5.1 mmol/L (3.5-5.0) H 02/20/23 10:06 Glucose 180.0 mg/dL (70-115) H 02/20/23 10:06 Ionized Calcium 1.4 mmol/L (1.1-1.4) 02/20/23 10:06 O2 Delivery Device Bipap 02/20/23 13:02 O2 Liters/Min 15.0 % 02/20/23 10:06 FiO2 35.0 % 02/20/23 13:02 Interventional Radiology Technologist ID Monro 02/20/23 13:02 Sodium 140 mmol/L (136-145) 02/20/23 11:17 Potassium 5.2 mmol/L (3.5-5.1) H 02/20/23 11:17 Chloride 103 mmol/L (98-107) 02/20/23 11:17 Carbon Dioxide 26 mmol/L (22-29) 02/20/23 11:17 Anion Gap 16.2 (5-19) 02/20/23 11:17 BUN 41 mg/dL (8-23) H 02/20/23 11:17 Creatinine 1.6 mg/dL (0.5-0.9) H 02/20/23 11:17 GFR Calculation Not Reportable 02/20/23 11:17 Glucose 186 mg/dL (65-115) H 02/20/23 11:17 Calculated Osmolality 305 mOsm/kg (285-295) H 02/20/23 11:17 Lactic Acid 0.9 mmol/L (0.5-2.2) 02/20/23 11:17 Calcium 8.9 mg/dL (8.5-10.5) 02/20/23 11:17 Magnesium 2.0 mg/dL (1.7-2.3) 02/20/23 11:17 Total Bilirubin 0.2 mg/dL (0.15-1.2) 02/20/23 11:17 AST 60 U/L (0-32) H 02/20/23 11:17 ALT 73 U/L (0-33) H 02/20/23 11:17 Alkaline Phosphatase 262 U/L (35-105) H 02/20/23 11:17 Creatine Kinase 144 U/L (26-192) 02/20/23 11:17 Troponin T Baseline 175 ng/L (0-10) H* 02/20/23 11:17 Troponin T 120 Minute 166.1 ng/L (0-10) H 02/20/23 13:14 Delta Troponin T -8.9 ABS# (0-10) L 02/20/23 13:14 NT-Pro-B Natriuret Pep 60905 pg/mL (0-450) H 02/20/23 11:17 Total Protein 5.6 g/dL (6.6-8.7) L 02/20/23 11:17 Albumin 3.2 g/dL (3.5-5.2) L 02/20/23 11:17 Globulin 2.4 g/dL (1.3-4.6) 02/20/23 11:17 Lipase 86 U/L (13-60) H 02/20/23 11:17 Vitamin B12 1790 pg/mL (232-1245) H 02/20/23 13:14 Procalcitonin 0.18 ng/mL (0-0.5) 02/20/23 11:17 Urine Color Dark yellow (Yellow) 02/20/23 11:25 Urine Appearance Clear (CLEAR) 02/20/23 11:25 Urine pH 5 (5-7) 02/20/23 11:25 Ur Specific Russell 1.025 (1.005-1.030) 02/20/23 11:25 Urine Protein Neg (Negative) 02/20/23 11:25 Urine Glucose (UA) Norm (Normal) 02/20/23 11:25 Urine Ketones Negative (Negative) 02/20/23 11:25 Urine Blood Neg (Negative) 02/20/23 11:25 Urine Nitrate Negative (Negative) 02/20/23 11:25 Urine Bilirubin Neg (Negative) 02/20/23 11:25 Urine Urobilinogen Norm mg/dL (Negative) 02/20/23 11:25 Ur Leukocyte Esterase Negative (Negative) 02/20/23 11:25 Serum Ketones Positive (Negative) H 02/20/23 11:17 Critical Care Time Critical Care Time: Critical Care Time: Yes Total Critical Care Time: 35 Attestation: The high probability of a clinically significant, sudden or life threatening deterioration of the patient's cardiovascular/respiratory system(s) required my full and direct attention, intervention and personal management. The critical care time is as shown. This time is in addition to time spent performing any reported procedures but includes the following: [x] Data and vital sign review and interpretation [x] Patient assessment, examination and intervention [x] Documentation [x] Medication orders and management Discharge Plan Discharge Patient Disposition: Admitted As Inpatient Admit Provider: Wesley Uriostegui Clinical Impression: Acute congestive heart failure, Pneumonia, Acute hypercapnic respiratory failure, MIGUEL (acute kidney injury), Cardiogenic shock Condition: Stable Coding Level of Care Code ED Resistance Brazer for Yolette Patton
== END 2023-02-24 23:36 | disposition expired ==
LOC: ER 12:41 → ICU 14:07
PROVIDERS: Internal Medicine; Admitting Provider Internal Medicine; Emergency Provider Family Medicine; PCP Family Medicine; Visit Provider Student in an Organized Health Care Education/Training Program
DX: I21.4 Non-ST elevation (NSTEMI) myocardial infarction (principal); I50.31 Acute diastolic (congestive) heart failure; J18.9 Pneumonia, unspecified organism; J96.22 Acute and chronic respiratory failure with hypercapnia; J96.21 Acute and chronic respiratory failure with hypoxia; I13.0 Hypertensive heart and chronic kidney disease with heart failure and stage 1 through stage 4 chronic kidney disease, or unspecified chronic kidney disease; J44.1 Chronic obstructive pulmonary disease with (acute) exacerbation; J44.0 Chronic obstructive pulmonary disease with (acute) lower respiratory infection; N17.9 Acute kidney failure, unspecified; N18.9 Chronic kidney disease, unspecified; E11.65 Type 2 diabetes mellitus with hyperglycemia; K86.9 Disease of pancreas, unspecified; R91.8 Other nonspecific abnormal finding of lung field; Z87.891 Personal history of nicotine dependence; G30.9 Alzheimer's disease, unspecified; F02.80 Dementia in other diseases classified elsewhere, unspecified severity, without behavioral disturbance, psychotic disturbance, mood disturbance, and anxiety; R97.1 Elevated cancer antigen 125 [CA 125]; F41.9 Anxiety disorder, unspecified; D64.9 Anemia, unspecified; E87.5 Hyperkalemia; E78.00 Pure hypercholesterolemia, unspecified; Z86.73 Personal history of transient ischemic attack (TIA), and cerebral infarction without residual deficits; G40.409 Other generalized epilepsy and epileptic syndromes, not intractable, without status epilepticus; F32.A Depression, unspecified; Z51.5 Encounter for palliative care
CPT/HCPCS: 36415; 36416; 36573; 36592; 36600; 51702; 70450; 71045; 71275; 74176; 80048; 80051; 80053; 81001; 81003; 82009; 82140; 82274; 82330; 82378; 82436; 82550; 82570; 82607; 82803; 82805; 82962; 83605; 83690; 83735; 83880; 84100; 84133; 84145; 84300; 84484; 85025; 85378; 85730; 85999; 86140; 86301; 86304; 86403; 87040; 87086; 87106; 87449; 87486; 87581; 87633; 87641; 92523; 92610; 93005; 93308; 93970; 94640; 94660; 96365; 96366; 96367; 96372; 96375; 96376; 99291; C1751; J0610; J0692; J1100; J1265; J1644; J1815; J1940; J1956; J2060; J2270; J2405; J2543; J2930; J3370; J3490; J7030; J7040; J7050; J7060; J7614; J7626; J7644; P9046; Q9967